=== PATIENT | male | born 1955 | race Caucasian/White ===

== ENCOUNTER 2018-03-01 10:56 | Day surgery (SDC) | payer MEDICARE, OTHER ==
[~2018-03-01 10:56] MED LIST: ACET500 PO; ALBIPROI INH; ALBU.083IS IH; ALBU90OI; ALBU90OI INH; ALBU90OI61 INH; AMLO5 PO; ASPI81CH PO; Accuneb1.25 MG/3 INH; BUDE6HFA INH; CHLO25 PO; CIPR500 PO; CLIN300 PO; DOXY100 PO; FLUSAL1005; HYDACE5 PO; HYDR1TAB94 PO; Hydrocodone-Ap1 EA23 PO; IBUP600; LEVFLO500 PO; LEVO750 PO; Lopressor 25 mg25 MG PO; METO25ER PO; METO50ER PO; Mucinex600 MG PO; Multivitamin1 EAC2 PO; NICO21TP TOP; Norco 5-325 Ta1 EACH; OMEP40CA12; OMEP40CA12 PO; PRED10 PO; PRED20 PO; Prednisone20 MG PO; SACC250C PO; Symbicort 16010.2 GM IH; Symbicort 16010.2 GM INH; THIA100 PO; Zithromax250 MG PO; Zofran4 MG PO; metoprolol succinate PO
== END 2018-03-01 23:01 | disposition home or self-care (01) ==
LOC: WOUND 10:56
DX: L89.323 Pressure ulcer of left buttock, stage 3 (principal); Q05.9 Spina bifida, unspecified
CPT/HCPCS: G0463

== ENCOUNTER 2018-03-04 00:15 | Day surgery (SDC) | payer MEDICARE, OTHER | END 2018-03-04 22:39 | disposition home or self-care (01) | LOC: WOUND 00:15 | DX: L89.323 Pressure ulcer of left buttock, stage 3 (principal); Q05.9 Spina bifida, unspecified; L84 Corns and callosities | CPT/HCPCS: G0463 ==

== ENCOUNTER 2018-03-07 01:43 | Emergency (ER) | payer MEDICARE, OTHER ==
[~2018-03-07] VITALS: Ht 170.2 cm; Wt 65.8 kg
[2018-03-07] MEDS ORDERED: DOCU100 PO (01:51)
[2018-03-07] MEDS ORDERED: BUDE6HFA INH (01:55)
[2018-03-07] MEDS ORDERED: CEPH250A PO (01:56)
[2018-03-07] MEDS ORDERED: IBUP600 PO (03:32)
[2018-03-07] MEDS ORDERED: CYCL10 PO (03:32)
== END 2018-03-07 04:12 | disposition home or self-care (01) ==
LOC: ER 01:43
DX: M54.41 Lumbago with sciatica, right side (principal); J44.9 Chronic obstructive pulmonary disease, unspecified; I10 Essential (primary) hypertension; Z91.018 Allergy to other foods; Z88.5 Allergy status to narcotic agent; Z79.899 Other long term (current) drug therapy; Z79.51 Long term (current) use of inhaled steroids; Z87.891 Personal history of nicotine dependence
CPT/HCPCS: 96372; 99284-25; J1100; J1885

== ENCOUNTER 2018-04-19 17:47 | Emergency (ER) | payer MEDICARE, OTHER ==
[~2018-04-19] VITALS: Ht 172.7 cm; Wt 64.9 kg
[~2018-04-19 17:47] MED LIST changes: +CEPH250A PO; +CYCL10 PO; +DOCU100 PO; +IBUP600 PO
[2018-04-19 18:43] LABS: BASOPHILS ABSOLUTE AUTO 0.03 K/mm3 (0.00-0.23); BASOPHILS PERCENT AUTO 0 % (0-2); EOSINOPHILS PERCENT AUTO 1 % (0-6); Hematocrit 48.3 % (37.0-53.0); Hemoglobin 15.3 g/dL (13.5-17.5); IMMATURE GRAN ABSOLUTE AUTO 0.08 K/mm3 (0.00-0.10); IMMATURE GRAN PERCENT AUTO 1 % (0-1); LYMPHOCYTES ABSOLUTE AUTO 2.57 K/mm3 (0.84-5.20); LYMPHOCYTES PERCENT AUTO 16 % (21-46); MONOCYTES ABSOLUTE AUTO 1.25 K/mm3 (0.16-1.47); MONOCYTES PERCENT AUTO 8 % (4-13); Mean Corpuscular HGB 28.8 pg (26.0-34.0); Mean Corpuscular HGB Conc 31.7 g/dL (31.5-36.5); Mean Corpuscular Volume 91 fL (80-100); Mean Platelet Volume 10.9 fL (9.1-12.4); NEUTROPHILS ABSOLUTE AUTO 12.02 K/mm3 (1.96-9.15); NEUTROPHILS PERCENT AUTO 75 % (41-73); Platelet Count 322 K/mm3 (150-400); RDW Coefficient Variation 15.2 % (11.7-14.2); RDW Standard Deviation 50.9 fL (35.1-46.3); Red Blood Cell Count 5.31 M/mm3 (4.30-5.90); White Blood Cell Count 16.05 K/mm3 (4.00-11.30)
[2018-04-19 18:59] LABS: Alanine Aminotransfer (ALT/SGP 33 U/L (12-78); Albumin, Blood 3.8 g/dL (3.4-5.0); Alk Phos 149 U/L (50-136); Anion Gap 10 mmol/L (6-16); Aspartate Aminotrans (AST/SGOT 26 U/L (12-37); Bilirubin, Total 0.2 mg/dL (0.1-1.0); Blood Urea Nitrogen 22 mg/dL (8-24); Bun/Creatinine Ratio 28.6 (12.0-20.0); CO2, Blood 24 mmol/L (21-32); Calcium, Blood 9.2 mg/dL (8.5-10.1); Chloride, Blood 103 mmol/L (98-108); Creatinine, Blood 0.77 mg/dL (0.60-1.20); Globulin, Blood 3.9 g/dL (2.2-4.0); Glomerular Filtration Rate >60 (60-); Glucose, Blood 98 mg/dL (70-99); Potassium, Blood 3.8 mmol/L (3.5-5.5); Salicylate 2.4 mg/dL (2.8-20.0); Sodium, Blood 137 mmol/L (136-145); Total Protein, Blood 7.7 g/dL (6.4-8.2)
[2018-04-19 19:00] LABS: Acetaminophen, Random <2.0 ug/mL (10.0-30.0)
== END 2018-04-19 20:20 | disposition left against medical advice (07) ==
LOC: ER 17:47
PROVIDERS: Physician Assistant
DX: Z53.21 Procedure and treatment not carried out due to patient leaving prior to being seen by health care provider (principal)
CPT/HCPCS: 80053; 85025; 93005; 93010; G0480

== ENCOUNTER 2018-04-22 00:21 | Day surgery (SDC) | payer MEDICARE, OTHER | END 2018-04-22 22:44 | disposition home or self-care (01) | LOC: WOUND 00:21 | DX: L89.323 Pressure ulcer of left buttock, stage 3 (principal); Q05.9 Spina bifida, unspecified | CPT/HCPCS: G0463 ==

== ENCOUNTER 2018-04-29 15:15 | Day surgery (SDC) | payer OTHER | END 2018-04-29 23:06 | disposition home or self-care (01) | LOC: WOUND 15:15 | DX: L89.324 Pressure ulcer of left buttock, stage 4 (principal); Q05.9 Spina bifida, unspecified | CPT/HCPCS: G0463 ==

== ENCOUNTER 2018-05-06 13:15 | Emergency (ER) | payer OTHER ==
[~2018-05-06] VITALS: Ht 172.7 cm; Wt 63.5 kg
[2018-05-06 14:59] LABS: BASOPHILS ABSOLUTE AUTO 0.04 K/mm3 (0.00-0.23); BASOPHILS PERCENT AUTO 1 % (0-2); EOSINOPHILS ABSOLUTE AUTO 0.04 K/mm3 (0.00-0.68); EOSINOPHILS PERCENT AUTO 1 % (0-6); Hematocrit 44.9 % (37.0-53.0); Hemoglobin 13.9 g/dL (13.5-17.5); IMMATURE GRAN ABSOLUTE AUTO 0.03 K/mm3 (0.00-0.10); IMMATURE GRAN PERCENT AUTO 0 % (0-1); LYMPHOCYTES ABSOLUTE AUTO 1.58 K/mm3 (0.84-5.20); LYMPHOCYTES PERCENT AUTO 19 % (21-46); MONOCYTES ABSOLUTE AUTO 0.76 K/mm3 (0.16-1.47); MONOCYTES PERCENT AUTO 9 % (4-13); Mean Corpuscular HGB 28.6 pg (26.0-34.0); Mean Corpuscular Volume 92 fL (80-100); Mean Platelet Volume 10.8 fL (9.1-12.4); NEUTROPHILS ABSOLUTE AUTO 6.01 K/mm3 (1.96-9.15); NEUTROPHILS PERCENT AUTO 71 % (41-73); Platelet Count 280 K/mm3 (150-400); RDW Coefficient Variation 15.6 % (11.7-14.2); RDW Standard Deviation 53.6 fL (35.1-46.3); Red Blood Cell Count 4.86 M/mm3 (4.30-5.90); White Blood Cell Count 8.46 K/mm3 (4.00-11.30)
[2018-05-06 15:19] LABS: Alanine Aminotransfer (ALT/SGP 23 U/L (12-78); Albumin, Blood 3.1 g/dL (3.4-5.0); Albumin/Globulin Ratio 0.8 (0.8-1.8); Alk Phos 122 U/L (50-136); Anion Gap 9 mmol/L (6-16); Aspartate Aminotrans (AST/SGOT 20 U/L (12-37); Bilirubin, Total 0.4 mg/dL (0.1-1.0); Blood Urea Nitrogen 10 mg/dL (8-24); Bun/Creatinine Ratio 16.9 (12.0-20.0); CO2, Blood 22 mmol/L (21-32); Calcium, Blood 8.5 mg/dL (8.5-10.1); Chloride, Blood 108 mmol/L (98-108); Creatinine, Blood 0.59 mg/dL (0.60-1.20); Globulin, Blood 3.9 g/dL (2.2-4.0); Glomerular Filtration Rate >60 (60-); Glucose, Blood 118 mg/dL (70-99); Potassium, Blood 3.9 mmol/L (3.5-5.5); Sodium, Blood 139 mmol/L (136-145)
[2018-05-06 15:25] LABS: Source, Urine Clean Catch
[2018-05-06 15:34] LABS: Appearance, Urine Hazy (Clear); Bilirubin, Urine Neg (Neg); Blood, Urine Neg (Neg); Color, Urine Yellow (P-Yellow); Glucose Qualitative, Urine Neg (Neg); Ketones, Urine Neg (Neg); Leukocyte Esterase, Urine 1+ (Neg); Nitrite, Urine Neg (Neg); Protein, Urine Neg (Neg); Urobilinogen, Urine NORM (Normal); pH, Urine 6.5 (5.0-8.0)
[2018-05-06 15:46] LABS: Bacteria Many /hpf; Red Blood Cells, Urine Not Seen /hpf (0-2); Squamous Epithelial Cells Few /hpf (Few)
[2018-05-06] MEDS ORDERED: DOXY100T53 PO (15:54)
[2018-05-06] MEDS ORDERED: Ultram50 MG PO (15:54)
== END 2018-05-06 16:14 | disposition home or self-care (01) ==
LOC: ER 13:15
PROVIDERS: Physician Assistant
DX: N34.2 Other urethritis (principal); J44.9 Chronic obstructive pulmonary disease, unspecified; F17.200 Nicotine dependence, unspecified, uncomplicated
CPT/HCPCS: 36415; 76770; 80053; 81001; 85025; 87077; 87086; 87186; 96372; 99284-25; J0696

== ENCOUNTER 2018-05-10 10:30 | Day surgery (SDC) | payer OTHER ==
[~2018-05-10 10:30] MED LIST changes: +DOXY100T53 PO; +Ultram50 MG PO
== END 2018-05-10 22:37 | disposition home or self-care (01) ==
LOC: WOUND 10:30
DX: L89.323 Pressure ulcer of left buttock, stage 3 (principal); Q05.9 Spina bifida, unspecified; Z72.0 Tobacco use
CPT/HCPCS: G0463

== ENCOUNTER 2018-05-17 10:35 | Day surgery (SDC) | payer OTHER | END 2018-05-17 22:52 | disposition home or self-care (01) | LOC: WOUND 10:35 | DX: L89.324 Pressure ulcer of left buttock, stage 4 (principal); Q05.9 Spina bifida, unspecified; Z72.0 Tobacco use | CPT/HCPCS: G0463 ==

== ENCOUNTER 2018-06-10 12:20 | Day surgery (SDC) | payer MEDICARE, OTHER | END 2018-06-10 22:40 | disposition home or self-care (01) | LOC: WOUND 12:20 | DX: L89.323 Pressure ulcer of left buttock, stage 3 (principal); Q05.9 Spina bifida, unspecified; F17.210 Nicotine dependence, cigarettes, uncomplicated; L03.317 Cellulitis of buttock; B95.62 Methicillin resistant Staphylococcus aureus infection as the cause of diseases classified elsewhere ==

== ENCOUNTER 2018-06-17 00:30 | Day surgery (SDC) | payer MEDICARE, OTHER | END 2018-06-17 22:43 | disposition home or self-care (01) | LOC: WOUND 00:30 | DX: L89.324 Pressure ulcer of left buttock, stage 4 (principal); Q05.9 Spina bifida, unspecified; Z72.0 Tobacco use ==

== ENCOUNTER 2018-06-24 00:15 | Day surgery (SDC) | payer MEDICARE, OTHER ==
[2018-06-24] MEDS ORDERED: PRED10 PO (17:23)
== END 2018-06-24 22:35 | disposition home or self-care (01) ==
LOC: WOUND 00:15
DX: L89.323 Pressure ulcer of left buttock, stage 3 (principal); Q05.9 Spina bifida, unspecified; Z72.0 Tobacco use
CPT/HCPCS: G0463

== ENCOUNTER 2018-06-24 12:45 | Emergency (ER) | payer MEDICARE, OTHER ==
[~2018-06-24] VITALS: Ht 170.2 cm; Wt 63.5 kg
[2018-06-24 13:45] LABS: BASOPHILS ABSOLUTE AUTO 0.05 K/mm3 (0.00-0.23); BASOPHILS PERCENT AUTO 0 % (0-2); EOSINOPHILS ABSOLUTE AUTO 0.01 K/mm3 (0.00-0.68); EOSINOPHILS PERCENT AUTO 0 % (0-6); Hematocrit 50.2 % (37.0-53.0); Hemoglobin 16.5 g/dL (13.5-17.5); IMMATURE GRAN ABSOLUTE AUTO 0.04 K/mm3 (0.00-0.10); IMMATURE GRAN PERCENT AUTO 0 % (0-1); LYMPHOCYTES ABSOLUTE AUTO 2.03 K/mm3 (0.84-5.20); LYMPHOCYTES PERCENT AUTO 16 % (21-46); MONOCYTES ABSOLUTE AUTO 1.19 K/mm3 (0.16-1.47); MONOCYTES PERCENT AUTO 10 % (4-13); Mean Corpuscular HGB 28.6 pg (26.0-34.0); Mean Corpuscular HGB Conc 32.9 g/dL (31.5-36.5); Mean Corpuscular Volume 87 fL (80-100); Mean Platelet Volume 10.6 fL (9.1-12.4); NEUTROPHILS ABSOLUTE AUTO 9.06 K/mm3 (1.96-9.15); NEUTROPHILS PERCENT AUTO 73 % (41-73); Platelet Count 257 K/mm3 (150-400); RDW Coefficient Variation 15.1 % (11.7-14.2); Red Blood Cell Count 5.76 M/mm3 (4.30-5.90); White Blood Cell Count 12.38 K/mm3 (4.00-11.30)
[2018-06-24 14:05] LABS: Alanine Aminotransfer (ALT/SGP 71 U/L (12-78); Albumin, Blood 3.8 g/dL (3.4-5.0); Alk Phos 165 U/L (50-136); Anion Gap 13 mmol/L (6-16); Aspartate Aminotrans (AST/SGOT 68 U/L (12-37); Bilirubin, Total 0.7 mg/dL (0.1-1.0); Blood Urea Nitrogen 8 mg/dL (8-24); Bun/Creatinine Ratio 13.9 (12.0-20.0); CO2, Blood 22 mmol/L (21-32); Calcium, Blood 8.7 mg/dL (8.5-10.1); Chloride, Blood 104 mmol/L (98-108); Creatinine, Blood 0.57 mg/dL (0.60-1.20); Globulin, Blood 3.9 g/dL (2.2-4.0); Glomerular Filtration Rate >60 (60-); Glucose, Blood 95 mg/dL (70-99); Potassium, Blood 4.1 mmol/L (3.5-5.5); Sodium, Blood 139 mmol/L (136-145); Total Protein, Blood 7.7 g/dL (6.4-8.2); Troponin I <0.015 ng/mL (0.000-0.040)
[2018-06-24] MEDS ORDERED: PRED10 PO (17:23)
== END 2018-06-24 18:04 | disposition home or self-care (01) ==
LOC: ER 12:45
PROVIDERS: Emergency Medicine
DX: J44.1 Chronic obstructive pulmonary disease with (acute) exacerbation (principal); F17.210 Nicotine dependence, cigarettes, uncomplicated
CPT/HCPCS: 36415; 71046; 80053; 83880; 84484; 85025; 93005; 93010; 94640; 96374; 99285-25; J2930

== ENCOUNTER 2018-07-22 00:29 | Day surgery (SDC) | payer MEDICARE, OTHER | END 2018-07-22 12:00 | disposition home or self-care (01) | LOC: WOUND 00:29 | DX: L89.323 Pressure ulcer of left buttock, stage 3 (principal); Q05.9 Spina bifida, unspecified; J44.9 Chronic obstructive pulmonary disease, unspecified ==

== ENCOUNTER 2018-08-08 14:52 | Inpatient (IN) | payer MEDICARE, OTHER ==
[~2018-08-08] VITALS: Ht 172.7 cm; Wt 59.8 kg
[2018-08-08 15:28] LABS: BASOPHILS ABSOLUTE AUTO 0.04 K/mm3 (0.00-0.23); BASOPHILS PERCENT AUTO 0 % (0-2); EOSINOPHILS ABSOLUTE AUTO 0.02 K/mm3 (0.00-0.68); EOSINOPHILS PERCENT AUTO 0 % (0-6); Hematocrit 45.6 % (37.0-53.0); Hemoglobin 15.3 g/dL (13.5-17.5); IMMATURE GRAN ABSOLUTE AUTO 0.04 K/mm3 (0.00-0.10); IMMATURE GRAN PERCENT AUTO 0 % (0-1); LYMPHOCYTES ABSOLUTE AUTO 3.84 K/mm3 (0.84-5.20); LYMPHOCYTES PERCENT AUTO 26 % (21-46); MONOCYTES PERCENT AUTO 12 % (4-13); Mean Corpuscular HGB 28.9 pg (26.0-34.0); Mean Corpuscular HGB Conc 33.6 g/dL (31.5-36.5); Mean Corpuscular Volume 86 fL (80-100); Mean Platelet Volume 10.5 fL (9.1-12.4); NEUTROPHILS PERCENT AUTO 62 % (41-73); Platelet Count 264 K/mm3 (150-400); RDW Coefficient Variation 16.7 % (11.7-14.2); RDW Standard Deviation 51.8 fL (35.1-46.3); Red Blood Cell Count 5.29 M/mm3 (4.30-5.90); White Blood Cell Count 14.64 K/mm3 (4.00-11.30)
[2018-08-08 15:41] LABS: Base Excess Venous 2.3 mmol/L; Bicarbonate Venous 27.2 mmol/L (24.0-30.0); PO2 Venous 87.2 mmHg (38-42); pH Blood Venous 7.52 (7.34-7.37)
[2018-08-08 15:43] LABS: Influenza A Negative (NEGATIVE); Influenza B Negative (NEGATIVE)
[2018-08-08 15:54] LABS: Alanine Aminotransfer (ALT/SGP 72 U/L (12-78); Albumin, Blood 3.2 g/dL (3.4-5.0); Alk Phos 126 U/L (50-136); Anion Gap 16 mmol/L (6-16); Aspartate Aminotrans (AST/SGOT 58 U/L (12-37); Bilirubin, Total 0.6 mg/dL (0.1-1.0); Blood Urea Nitrogen 11 mg/dL (8-24); Bun/Creatinine Ratio 19.7 (12.0-20.0); CO2, Blood 24 mmol/L (21-32); Chloride, Blood 95 mmol/L (98-108); Creatinine, Blood 0.56 mg/dL (0.60-1.20); Globulin, Blood 3.2 g/dL (2.2-4.0); Glomerular Filtration Rate >60 (60-); Glucose, Blood 79 mg/dL (70-99); Potassium, Blood 3.8 mmol/L (3.5-5.5); Sodium, Blood 135 mmol/L (136-145); Total Protein, Blood 6.4 g/dL (6.4-8.2); Troponin I 0.033 ng/mL (0.000-0.040)
[2018-08-08 17:21] LABS: PCO2 Arterial 30.7 mmHg (35-45); PO2 Arterial 117 mmHg (80-100); pH Blood Arterial 7.39 (7.35-7.45)
--- NOTE | 2018-08-08 19:34 | NUR ---
RECEIVED REPORT FROM ED RN, PT ARRIVED ON UNIT AT 1835 THIS NURSE ASSUMED CARE OF PATIENT. ASSISTED PATIENT IN GETTING SETTLED AND ORIENTED TO THE ROOM AND CALL SYSTEM. WILL GET MEDS ADMINISTERED AND GIVE REPORT TO NOC RN.
[2018-08-09 00:09] LABS: Creatine Kinase MB 6.4 ng/mL (0.0-3.6); Creatine Kinase MB Index 4.3 (0.0-4.0); Troponin I 0.027 ng/mL (0.000-0.040)
--- NOTE | 2018-08-09 07:27 | NUR ---
SHIFT SUMMARY PATIENT PLEASENT AND COOPERATIVE THROUGHOUT THE NIGHT. PATIENT DID REPORT THAT HE FELT DIZZY WHEN STANDING OR SITTING UP. AT ONE POINT PATIENT REPORTED HE WAS STARTING TO GET DIZZY AND SOB. BIPAP PLACED ON PATIENT AND PATIENT MEDICATED FOR ANXIETY PER EMAR. PATIENT RELAXED AFTER BEING PLACED ON BIPAP AND WAS ABLE TO FALL ASLEEP FOR SEVERAL HOURS. WHEN PATIENT AWOKE HE STATED HE WAS FEELING BETTER. PATIENT ON SEVERAL LITERS OF O2 WHEN OFF BIAP. PATIENT HAS BEEN OFF BIPAP SINCE APPROX 0200 AND HAS APPEARED TO TOLERATE IT WELL THIS AM. PATIENT CURRENTLY APPEARS TO BE ASLEEP. REPORT GIVEN TO ONCOMING RN.
[2018-08-09 08:31] LABS: Alanine Aminotransfer (ALT/SGP 56 U/L (12-78); Albumin, Blood 2.7 g/dL (3.4-5.0); Albumin/Globulin Ratio 0.9 (0.8-1.8); Alk Phos 103 U/L (50-136); Anion Gap 9 mmol/L (6-16); Aspartate Aminotrans (AST/SGOT 40 U/L (12-37); Bilirubin, Total 0.6 mg/dL (0.1-1.0); Blood Urea Nitrogen 15 mg/dL (8-24); Bun/Creatinine Ratio 28.6 (12.0-20.0); CO2, Blood 27 mmol/L (21-32); Calcium, Blood 7.9 mg/dL (8.5-10.1); Chloride, Blood 103 mmol/L (98-108); Creatinine, Blood 0.53 mg/dL (0.60-1.20); Globulin, Blood 2.9 g/dL (2.2-4.0); Glomerular Filtration Rate >60 (60-); Glucose, Blood 159 mg/dL (70-99); Potassium, Blood 3.9 mmol/L (3.5-5.5); Sodium, Blood 139 mmol/L (136-145); Total Protein, Blood 5.6 g/dL (6.4-8.2)
--- NOTE | 2018-08-09 09:12 | NUR ---
RECEIVED REPORT AND ASSUMED CARE OF PATIENT. HE WAS SLEEPING ON ARRIVAL DURING REPORT, WHEN HE AWOKE HE IS HAVING INCREASED ALCOHOL WITHDRAWAL SYMPTOMS. AT 0745 PT CIWA WAS 7, AT THIS TIME 0910 PT IS EXPERIENCING INCREASED TREMORS AND SWEATING. WILL CONTINUE TO MONITOR AND CONTACT DR WITH NEW DEVELOPMENT. O2 3 LPM, O2 SAT 94%, HR 107 BED IN LOW POSITION, CALL LIGHT WITHIN EASY REACH.
[2018-08-09 10:53] LABS: BASOPHILS PERCENT AUTO 0 % (0-2); EOSINOPHILS PERCENT AUTO 0 % (0-6); Hematocrit 37.2 % (37.0-53.0); Hemoglobin 12.3 g/dL (13.5-17.5); IMMATURE GRAN ABSOLUTE AUTO 0.06 K/mm3 (0.00-0.10); IMMATURE GRAN PERCENT AUTO 1 % (0-1); LYMPHOCYTES ABSOLUTE AUTO 0.17 K/mm3 (0.84-5.20); LYMPHOCYTES PERCENT AUTO 2 % (21-46); MONOCYTES ABSOLUTE AUTO 0.52 K/mm3 (0.16-1.47); MONOCYTES PERCENT AUTO 5 % (4-13); Mean Corpuscular HGB 28.5 pg (26.0-34.0); Mean Corpuscular HGB Conc 33.1 g/dL (31.5-36.5); Mean Corpuscular Volume 86 fL (80-100); Mean Platelet Volume 10.8 fL (9.1-12.4); NEUTROPHILS ABSOLUTE AUTO 10.79 K/mm3 (1.96-9.15); NEUTROPHILS PERCENT AUTO 94 % (41-73); Platelet Count 174 K/mm3 (150-400); RDW Coefficient Variation 16.1 % (11.7-14.2); RDW Standard Deviation 50.8 fL (35.1-46.3); Red Blood Cell Count 4.32 M/mm3 (4.30-5.90); White Blood Cell Count 11.54 K/mm3 (4.00-11.30)
[2018-08-09 16:52] LABS: Source, Urine Urostomy Bag
[2018-08-09 17:05] LABS: Appearance, Urine Hazy (Clear); Bilirubin, Urine Neg (Neg); Blood, Urine 1+ (Neg); Color, Urine Yellow (P-Yellow); Glucose Qualitative, Urine 3+ (Neg); Ketones, Urine Neg (Neg); Leukocyte Esterase, Urine 1+ (Neg); Nitrite, Urine Pos (Neg); Protein, Urine Neg (Neg); Specific Gravity, Urine 1.015 (1.003-1.022); Urobilinogen, Urine NORM (Normal)
[2018-08-09 17:34] LABS: PCO2 Arterial 38.5 mmHg (35-45); pH Blood Arterial 7.49 (7.35-7.45)
--- NOTE | 2018-08-09 18:12 | NUR ---
PT HAD A GOOD DAY, HE RESTED THROUGHOUT THE SHIFT OFF AND ON. PT CONTINUES ON 3 LPM VIA NC O2 SAT >92%. PT REPORTS SOME DIZZINESS WHEN HE SITS UP, LIMITING TO BEDREST AT THIS TIME. CIWA SCORES BETWEEN 8-12 DURING THIS SHIFT. WILL GIVE REPORT TO ONCOMING RN AND CONTINUE TO MONITOR CLOSELY.
[2018-08-09 18:57] LABS: Bacteria Many /hpf; Red Blood Cells, Urine 0-2 /hpf (0-2); Squamous Epithelial Cells Not Seen /hpf (Few)
--- NOTE | 2018-08-10 06:36 | NUR ---
PCU NOC SHIFT SUMMARY PATIENT ALERT AND ORIENTED TO SELF, LOCATION AND SITUATION - CONFUSED TO DATE, REORIENTED EASILY. CIWA REMAINED 8-12 T/O SHIFT WITH PATIENT VERY DIRECTABLE AND COOPERATIVE WITH CARE. TREMORS NOTED AND SWEATING. VSS ON 2 LPM NC. PATIENT NSR WITH NO EVENTS NOTED. PATIENTS UROSTOMY DRAINING WELL - CLOUDY YELLOW ORDIFEROUS URINE. PATIENT HAS CHRONIC PAIN IN BACK. NO ACUTE EVENTS OVER NIGHT. WILL CONTINUE TO MONITOR AND REPORT TO DAYSHIFT RN.
--- NOTE | 2018-08-10 08:15 | NUR ---
AM assessment: Pt resting in bed. States that he is having 7/10 pain in his "chest" that is "from coughing". Will medicate per orders. VSS. LS with exp wheezing. BT positive. Pulses palp. CIWA a 7 at this time. Will medicate per orders for withdrawl. Urostomy draining clowdy, yellow urine with sediment. Foul smell. pt very concered about UTI. Assured Pt that he would has been recieving antibiotics and that he would get some more tonight. Denies other needs. Call light in reach.
--- NOTE | 2018-08-10 18:21 | NUR ---
SHift Summary: Pt resting in bed at this time. States that he is doing ok. VSS throughout shift. CIWA has remained 4-7 throughout shift. Pt was treated per orders. Pt has had back pain and chest pain that was treated and subsided with ultram and tylenal. Otherwise pt has dozed on and off throughout the shift and has done well. No other changes. Will report to night RN.
--- NOTE | 2018-08-11 07:55 | NUR ---
AM ASSESSMENT: Pt resting in bed. LS diminished with some coarsness and wheezing. HR reg. BT positive. Pulses palp. Urostomy draining clear yellow urine at this time. Smell has improved and less cloudy or sediment seen. PT states that he is having lower flank pain as well as chest pain r/t coughing. Pt recieving breathing tx at this time. Will medicate for pain per orders. VSS. Call light in reach. Will monitor.
--- NOTE | 2018-08-11 18:05 | NUR ---
shift summary: Pt has done well this shift. CIWA has been <4 throughout the day and has not required any treatment. Pt has slept on and off throughout the day. This am, at around 0915, pt had some chest pain associated with caughing the increased HR. Pt was coached purse lipped breathing and tolerated well. He was given tylenol and ultram that relieved pain. All other VSS throughout shift. This noc pt ambulated in room and up to bathroom. Was able to remove oxygen and biox remained about 90-91%. Pt tolerated well. Loose cough throughout shift, but minimal sputum coughed up. NO other changes this shift. Will report to night RN.
--- NOTE | 2018-08-11 19:27 | NUR ---
PM NOTE. ASSUMED CARE OF PT APROX 1900, PT IS A&Ox4 AND SBA IN THE ROOM. PT WAS ADMITTED DUE TO ACUTE RESP FAILURE W/HYPOXIA, PT IS CURRENTL ON 2L NC WITH O2 SATS AT 93%, RR IS 18 EVEN AND UNLABORED, PT DOES NOT APPEARE TO BE IN DISTRESS. TELE INTACT, ST AT 103 PER PUBLIC RELATIONS REPRESENTATIVE, PT'S BP 141/76, NO EDEMA NOTED ON ASSESMENT. PT'S L/S COARSE EXP WHEEZES T/O AND DIM IN THE BASES. BT PRESENT AND HYPOACTIVE, ABD IS SOFT AND NONTENDER TO PALP. UROSTOMY SITE IS C/D/I DRAINING YELLOW URINE, URINE HAS SLIGHT FOUL SMELL, THIS HAS IMPROVED FROM PREVIOUS DAY PER PT. CALL LIGHT IN REACH, BED IS LOCKED AND LOW WILL CONTIUE TO MONITOR.
--- NOTE | 2018-08-12 06:03 | NUR ---
SHIFT SUMMARY. NO ACUTE CHANGES NOTED THIS SHIFT, PT'S VS HAVE BEEN STABLE. PT DENIES ANY CHEST PAIN/PRESSURE, N/V OR SOB. PT REQUESTED THAT HE BE PUT ON HIS HOME INHALER SYMBICORT, RT WAS NOTIFIED AND PROVIDER CALLED, PT'S RESPIRATORY MEDICATONS CHANGED PER PROIVDER'S ORDERS. PT IS STILL ON 2L NC WITH O2 SATS >90%. CALL LIGHT IN REACH, BED IS LOCKED AND LOW WILL CONTINUE TO MONITOR UNTIL REPORT IS GIVEN TO ONCOMING RN.
--- NOTE | 2018-08-12 08:16 | NUR ---
Assumed Care: Assumed care of pt at approx 0700. VSS. In no apparent sign of distress. Pt is A&Ox4. CIWA score of 0. Calls appropriately. Repositions self. Pt currently sitting up at bedside and eating breakfast. Responding to questions appropriately. Denies any pain at this time. States that his breathing is feeling better all the time and that he would like to get up and shower today. Pt could likely status change today. See shift assessment for detailed assessment. Denies any further questions, complaints or requests at this time. Will continue to monitor.
[2018-08-12] MEDS ORDERED: TRAM50 PO (12:22)
[2018-08-12] MEDS ORDERED: PRED20 PO (12:24)
--- NOTE | 2018-08-12 12:58 | NUR ---
Discharge: Pt discharge complete. Pt educated on new medications and discharge instructions. Pt denies any questions at time of discharge. Dr. Fontana aware of pt running SIT on tele prior to removal in [id number] and no new orders received for discharge. Pt up and OOB in room. Dressing self for discharge independently. Home O2 eval complete and pt does not qualify for home O2. Written prescription for tramadol provided to pt. All other prescriptions called in to [facility] pharmacy on [facility] in [place]. Pt currently in room waiting for brother to come and pick him up. Will continue to monitor until pt leaves hospital campus.
--- NOTE | 2018-08-12 16:22 | NUR ---
UPDATE: PT DISCHARGED OFFICIALLY AT 1313
== END 2018-08-12 13:17 | disposition home or self-care (01) | DRG 189 ==
LOC: ER 14:52 → PCU 16:51
PROVIDERS: Emergency Medicine; Hospitalist; Physician Assistant; ADMIT Internal Medicine
PROC: 5A09457 Assistance with Respiratory Ventilation, 24-96 Consecutive Hours, Continuous Positive Airway Pressure (ICD-10-PCS; principal; 2018-08-08)
DX: J96.01 Acute respiratory failure with hypoxia (principal); F10.231 Alcohol dependence with withdrawal delirium; J44.1 Chronic obstructive pulmonary disease with (acute) exacerbation; E87.2 Acidosis; R65.10 Systemic inflammatory response syndrome (SIRS) of non-infectious origin without acute organ dysfunction; J44.0 Chronic obstructive pulmonary disease with (acute) lower respiratory infection; Z51.5 Encounter for palliative care; F17.210 Nicotine dependence, cigarettes, uncomplicated; D64.9 Anemia, unspecified; Z59.0 Homelessness; E86.0 Dehydration; K21.9 Gastro-esophageal reflux disease without esophagitis; I10 Essential (primary) hypertension; Q05.9 Spina bifida, unspecified; J20.9 Acute bronchitis, unspecified; Z93.6 Other artificial openings of urinary tract status
CPT/HCPCS: 36415; 36600; 71045; 80053; 81001; 82550; 82553; 82803; 83605; 84484; 85025; 87040; 87070; 87086; 87205; 87804; 90732; 93005; 93010; 94640; 94660; 94761; 94762; 96361; 96374; 96375; 98960; 99285-25; C9113; J1650; J2060; J2405; J2930; J3010; J3411; J7030; J7120; J7512

== ENCOUNTER → 2018-10-21 | Outpatient (CLI) | payer MEDICARE, OTHER ==
[~2018-10-21] MED LIST changes: +TRAM50 PO
== END | disposition home or self-care (01) ==
LOC: LAB SHORT 17:00 → LAB UCHC 17:00
DX: N39.0 Urinary tract infection, site not specified (principal); T83.098S Other mechanical complication of other urinary catheter, sequela
CPT/HCPCS: 87077; 87086; 87186

== ENCOUNTER 2019-02-08 16:29 | Emergency (ER) | payer MEDICARE, OTHER ==
[~2019-02-08] VITALS: Ht 170.2 cm; Wt 56.7 kg
[2019-02-08 18:10] LABS: BASOPHILS ABSOLUTE AUTO 0.02 K/mm3 (0.00-0.23); BASOPHILS PERCENT AUTO 0 % (0-2); EOSINOPHILS ABSOLUTE AUTO 0.07 K/mm3 (0.00-0.68); EOSINOPHILS PERCENT AUTO 1 % (0-6); Hematocrit 48.1 % (37.0-53.0); Hemoglobin 15.2 g/dL (13.5-17.5); IMMATURE GRAN ABSOLUTE AUTO 0.02 K/mm3 (0.00-0.10); IMMATURE GRAN PERCENT AUTO 0 % (0-1); LYMPHOCYTES ABSOLUTE AUTO 1.38 K/mm3 (0.84-5.20); LYMPHOCYTES PERCENT AUTO 18 % (21-46); MONOCYTES ABSOLUTE AUTO 0.59 K/mm3 (0.16-1.47); MONOCYTES PERCENT AUTO 8 % (4-13); Mean Corpuscular HGB 29.1 pg (26.0-34.0); Mean Corpuscular HGB Conc 31.6 g/dL (31.5-36.5); Mean Corpuscular Volume 92 fL (80-100); Mean Platelet Volume 11.1 fL (9.1-12.4); NEUTROPHILS ABSOLUTE AUTO 5.79 K/mm3 (1.96-9.15); NEUTROPHILS PERCENT AUTO 74 % (41-73); Platelet Count 228 K/mm3 (150-400); RDW Coefficient Variation 15.1 % (11.7-14.2); Red Blood Cell Count 5.22 M/mm3 (4.30-5.90); White Blood Cell Count 7.87 K/mm3 (4.00-11.30)
[2019-02-08 18:47] LABS: Alanine Aminotransfer (ALT/SGP 21 U/L (12-78); Albumin, Blood 3.2 g/dL (3.4-5.0); Albumin/Globulin Ratio 0.9 (0.8-1.8); Alk Phos 139 U/L (50-136); Anion Gap 7 mmol/L (6-16); Aspartate Aminotrans (AST/SGOT 19 U/L (12-37); Bilirubin, Total 0.3 mg/dL (0.1-1.0); Blood Urea Nitrogen 13 mg/dL (8-24); Bun/Creatinine Ratio 19.3 (12.0-20.0); CO2, Blood 24 mmol/L (21-32); Calcium, Blood 8.6 mg/dL (8.5-10.1); Chloride, Blood 108 mmol/L (98-108); Creatinine, Blood 0.67 mg/dL (0.60-1.20); Globulin, Blood 3.4 g/dL (2.2-4.0); Glomerular Filtration Rate >60 (60-); Glucose, Blood 124 mg/dL (70-99); Potassium, Blood 4.1 mmol/L (3.5-5.5); Sodium, Blood 139 mmol/L (136-145); Total Protein, Blood 6.6 g/dL (6.4-8.2)
== END 2019-02-08 20:25 | disposition left against medical advice (07) ==
LOC: ER 16:29
PROVIDERS: Physician Assistant
DX: R42 Dizziness and giddiness (principal); Z86.018 Personal history of other benign neoplasm
CPT/HCPCS: 36415; 80053; 84484; 85025; 93005; 93010; 99283-25

== ENCOUNTER 2019-05-21 22:25 | Emergency (ER) | payer MEDICARE, OTHER ==
[~2019-05-21] VITALS: Ht 170.2 cm; Wt 56.7 kg
[~2019-05-21 22:25] MED LIST changes: -OMEP40CA12; +OMEPRAZOLE20 MG PO
[2019-05-21 23:24] LABS: BASOPHILS ABSOLUTE AUTO 0.02 K/mm3 (0.00-0.23); BASOPHILS PERCENT AUTO 0 % (0-2); EOSINOPHILS ABSOLUTE AUTO 0.13 K/mm3 (0.00-0.68); EOSINOPHILS PERCENT AUTO 2 % (0-6); Hematocrit 44.6 % (37.0-53.0); Hemoglobin 14.2 g/dL (13.5-17.5); IMMATURE GRAN ABSOLUTE AUTO 0.02 K/mm3 (0.00-0.10); IMMATURE GRAN PERCENT AUTO 0 % (0-1); LYMPHOCYTES ABSOLUTE AUTO 2.02 K/mm3 (0.84-5.20); LYMPHOCYTES PERCENT AUTO 27 % (21-46); MONOCYTES ABSOLUTE AUTO 0.54 K/mm3 (0.16-1.47); MONOCYTES PERCENT AUTO 7 % (4-13); Mean Corpuscular HGB 29.5 pg (26.0-34.0); Mean Corpuscular HGB Conc 31.8 g/dL (31.5-36.5); Mean Corpuscular Volume 93 fL (80-100); Mean Platelet Volume 10.4 fL (9.1-12.4); NEUTROPHILS ABSOLUTE AUTO 4.76 K/mm3 (1.96-9.15); NEUTROPHILS PERCENT AUTO 64 % (41-73); Platelet Count 276 K/mm3 (150-400); RDW Coefficient Variation 13.6 % (11.7-14.2); RDW Standard Deviation 46.6 fL (35.1-46.3); Red Blood Cell Count 4.82 M/mm3 (4.30-5.90); White Blood Cell Count 7.49 K/mm3 (4.00-11.30)
[2019-05-21 23:44] LABS: Alanine Aminotransfer (ALT/SGP 21 U/L (12-78); Albumin, Blood 3.2 g/dL (3.4-5.0); Albumin/Globulin Ratio 0.8 (0.8-1.8); Alk Phos 146 U/L (50-136); Anion Gap 6 mmol/L (6-16); Aspartate Aminotrans (AST/SGOT 19 U/L (12-37); Bilirubin, Total 0.2 mg/dL (0.1-1.0); Blood Urea Nitrogen 16 mg/dL (8-24); Bun/Creatinine Ratio 21.1 (12.0-20.0); CO2, Blood 31 mmol/L (21-32); Calcium, Blood 8.5 mg/dL (8.5-10.1); Chloride, Blood 105 mmol/L (98-108); Creatinine, Blood 0.76 mg/dL (0.60-1.20); Globulin, Blood 3.9 g/dL (2.2-4.0); Glomerular Filtration Rate >60 (60-); Glucose, Blood 100 mg/dL (70-99); Potassium, Blood 4.3 mmol/L (3.5-5.5); Sodium, Blood 142 mmol/L (136-145); Total Protein, Blood 7.1 g/dL (6.4-8.2)
[2019-05-22 01:02] LABS: Source, Urine Urostomy Bag
[2019-05-22 01:05] LABS: Bilirubin, Urine Neg (Neg); Blood, Urine 1+ (Neg); Glucose Qualitative, Urine Neg (Neg); Ketones, Urine Neg (Neg); Leukocyte Esterase, Urine 3+ (Neg); Nitrite, Urine Pos (Neg); Protein, Urine 1+ (Neg); Urobilinogen, Urine NORM (Normal)
[2019-05-22 01:10] LABS: Appearance, Urine Hazy (Clear); Color, Urine Yellow (P-Yellow)
[2019-05-22 01:11] LABS: Amorphous Light (0-Heavy); Red Blood Cells, Urine 0-2 /hpf (0-2); Squamous Epithelial Cells Not Seen /hpf (Few); White Blood Cells, Urine TNTC /hpf (0-5)
[2019-05-22 01:12] LABS: Bacteria Many /hpf
[2019-05-22] MEDS ORDERED: Cipro500 MG PO (02:34)
== END 2019-05-22 03:26 | disposition home or self-care (01) ==
LOC: ER 22:25
PROVIDERS: Emergency Medicine
DX: N39.0 Urinary tract infection, site not specified (principal); I10 Essential (primary) hypertension; J44.9 Chronic obstructive pulmonary disease, unspecified; Z91.018 Allergy to other foods; Z88.5 Allergy status to narcotic agent; Z79.899 Other long term (current) drug therapy; Z87.891 Personal history of nicotine dependence
CPT/HCPCS: 36415; 74176; 80053; 81001; 83690; 85025; 87086; 96365; 96375; 99284-25; J0696; J1885

== ENCOUNTER 2019-05-30 10:28 | Inpatient (IN) | payer MEDICARE, OTHER ==
[~2019-05-30] VITALS: Ht 172.7 cm; Wt 56.7 kg
[~2019-05-30 10:28] MED LIST changes: +Cipro500 MG PO
[2019-05-30 11:45] LABS: BASOPHILS ABSOLUTE AUTO 0.05 K/mm3 (0.00-0.23); BASOPHILS PERCENT AUTO 0 % (0-2); EOSINOPHILS ABSOLUTE AUTO 0.11 K/mm3 (0.00-0.68); EOSINOPHILS PERCENT AUTO 1 % (0-6); Hematocrit 42.1 % (37.0-53.0); Hemoglobin 13.7 g/dL (13.5-17.5); IMMATURE GRAN ABSOLUTE AUTO 0.08 K/mm3 (0.00-0.10); IMMATURE GRAN PERCENT AUTO 1 % (0-1); LYMPHOCYTES ABSOLUTE AUTO 2.42 K/mm3 (0.84-5.20); LYMPHOCYTES PERCENT AUTO 14 % (21-46); MONOCYTES ABSOLUTE AUTO 1.11 K/mm3 (0.16-1.47); MONOCYTES PERCENT AUTO 7 % (4-13); Mean Corpuscular HGB Conc 32.5 g/dL (31.5-36.5); Mean Corpuscular Volume 92 fL (80-100); Mean Platelet Volume 10.9 fL (9.1-12.4); NEUTROPHILS ABSOLUTE AUTO 13.11 K/mm3 (1.96-9.15); NEUTROPHILS PERCENT AUTO 78 % (41-73); Platelet Count 298 K/mm3 (150-400); RDW Coefficient Variation 13.8 % (11.7-14.2); RDW Standard Deviation 47.3 fL (35.1-46.3); Red Blood Cell Count 4.57 M/mm3 (4.30-5.90); White Blood Cell Count 16.88 K/mm3 (4.00-11.30)
[2019-05-30 11:50] LABS: Alanine Aminotransfer (ALT/SGP 33 U/L (12-78); Albumin, Blood 3.6 g/dL (3.4-5.0); Albumin/Globulin Ratio 1.1 (0.8-1.8); Alk Phos 137 U/L (50-136); Anion Gap 9 mmol/L (6-16); Aspartate Aminotrans (AST/SGOT 29 U/L (12-37); Bilirubin, Total 0.6 mg/dL (0.1-1.0); Blood Urea Nitrogen 28 mg/dL (8-24); Bun/Creatinine Ratio 32.9 (12.0-20.0); CO2, Blood 24 mmol/L (21-32); Calcium, Blood 8.5 mg/dL (8.5-10.1); Chloride, Blood 107 mmol/L (98-108); Creatinine, Blood 0.85 mg/dL (0.60-1.20); Ethanol (Alcohol), Blood, Med <3 mg/dL; Globulin, Blood 3.3 g/dL (2.2-4.0); Glomerular Filtration Rate >60 (60-); Glucose, Blood 136 mg/dL (70-99); Potassium, Blood 3.7 mmol/L (3.5-5.5); Sodium, Blood 140 mmol/L (136-145); Total Protein, Blood 6.9 g/dL (6.4-8.2)
[2019-05-30 12:02] LABS: Source, Urine Urostomy Bag
[2019-05-30 12:12] LABS: Bilirubin, Urine Neg (Neg); Blood, Urine 3+ (Neg); Glucose Qualitative, Urine Neg (Neg); Ketones, Urine 3+ (Neg); Leukocyte Esterase, Urine Neg (Neg); Nitrite, Urine Neg (Neg); Protein, Urine 1+ (Neg); Specific Gravity, Urine 1.005 (1.003-1.022); Urobilinogen, Urine NORM (Normal)
[2019-05-30 12:23] LABS: Appearance, Urine Hazy (Clear); Color, Urine Yellow (P-Yellow)
[2019-05-30 12:25] LABS: Bacteria Rare /hpf; Squamous Epithelial Cells Few /hpf (Few); White Blood Cells, Urine 0-2 /hpf (0-5)
[2019-05-30 12:35] LABS: U Amphetamine Screen DETECTED; U Barbituate Screen Not Detected; U Benzodiazapine Screen Not Detected; U Buprenorphine Screen Not Detected; U Cannabinoids Screen DETECTED; U Cocaine Screen Not Detected; U Methadone Screen Not Detected; U Methamphetamine Screen DETECTED; U Opiates Screen DETECTED; U Oxycodone Screen Not Detected; U Phencyclidine Screen Not Detected; U Propoxyphene Screen Not Detected
--- NOTE | 2019-05-30 19:03 | NUR ---
PT ARRIVED TO ROOM AT 1809. PT'S UROSTOMY BAG HAD COME UNDONE AT SOME POINT TODAY AND PT WAS SOAKED WITH URINE. PT WANTS TO SLEEP, BUT WILL TALK IS ASKED QUESTIONS. PT JUST WANTED TO CURL UP. PT WAS WASHED UP AND COVERED SO URINE DOES NOT SOAK HIM. NEW BAG ORDERED TO BE SENT UP. PT HAS WARM BLANKETS AND CALL LIGHT AVAIBLE. WILL CONTINUE TO MONITOR.
--- NOTE | 2019-05-31 06:23 | NUR ---
SHIFT SUMMARY DURING ADMIT ASSESSMENT LAST NIGHT PT WAS VERY DROWSY & HARD TO KEEP AWAKE, HE KEPT FALLING ASLEEP DURING QUESTIONS & I HAD TO STERNAL RUB TO WAKE HIM UP & THEN HE WOULD NOD HEAD APPROPRIATELY OR STATE YES/NO TO QUESTIONS. THIS AM PT OPENS EYES TO VERBAL STIMULI, IS AOX4, AND MORE VERBAL THEN LAST NIGHT. REPORTS 6-10/10 PAIN IN L SIDE/ABD, MEDICATED W/DILAUDID PER ORDERS & STATES RELIEF, AFTER GIVING PAIN MEDS THIS AM HE STATES PAIN DROPS TO 0/10. VSS. TELE RUNNING NSR W/HR 96. APPLIED NEW UROSTOMY BAG & WAFER LAST NIGHT, UROSTOMY DRAINING CLEAR LIGHT YELLOW URINE. PT REPORTED NAUSEA, MEDICATED W/PHENERGAN. STATED MILD RELIEF BUT FELT ACID/HEARTBURN IN THROAT, THEREFORE GAVE ORAL PRILOSEC W/A SIP OF WATER. OTHERWISE PT HAS BEEN NPO SINCE MIDNIGHT FOR POSSIBLE PROCEDURE TODAY. THIS AM PT WAS TEARFUL & ADMITTED TO USING METHAMPHETAMINE ON 05/28/19, STATES HE ONLY DOES IT "ONCE IN AWHILE". CALL LIGHT IN REACH. TM.
[2019-05-31 06:24] LABS: BASOPHILS ABSOLUTE AUTO 0.04 K/mm3 (0.00-0.23); BASOPHILS PERCENT AUTO 0 % (0-2); EOSINOPHILS ABSOLUTE AUTO 0.03 K/mm3 (0.00-0.68); EOSINOPHILS PERCENT AUTO 0 % (0-6); Hematocrit 46.6 % (37.0-53.0); Hemoglobin 14.9 g/dL (13.5-17.5); IMMATURE GRAN ABSOLUTE AUTO 0.05 K/mm3 (0.00-0.10); IMMATURE GRAN PERCENT AUTO 0 % (0-1); LYMPHOCYTES ABSOLUTE AUTO 0.98 K/mm3 (0.84-5.20); LYMPHOCYTES PERCENT AUTO 6 % (21-46); MONOCYTES ABSOLUTE AUTO 1.35 K/mm3 (0.16-1.47); MONOCYTES PERCENT AUTO 8 % (4-13); Mean Corpuscular HGB 29.6 pg (26.0-34.0); Mean Corpuscular Volume 93 fL (80-100); Mean Platelet Volume 10.9 fL (9.1-12.4); NEUTROPHILS ABSOLUTE AUTO 13.69 K/mm3 (1.96-9.15); NEUTROPHILS PERCENT AUTO 85 % (41-73); Platelet Count 224 K/mm3 (150-400); RDW Standard Deviation 47.8 fL (35.1-46.3); Red Blood Cell Count 5.03 M/mm3 (4.30-5.90); White Blood Cell Count 16.14 K/mm3 (4.00-11.30)
[2019-05-31 06:45] LABS: Albumin, Blood 2.9 g/dL (3.4-5.0); Anion Gap 9 mmol/L (6-16); Blood Urea Nitrogen 22 mg/dL (8-24); Bun/Creatinine Ratio 18.8 (12.0-20.0); CO2, Blood 23 mmol/L (21-32); Calcium, Blood 8.2 mg/dL (8.5-10.1); Chloride, Blood 108 mmol/L (98-108); Creatinine, Blood 1.17 mg/dL (0.60-1.20); Glomerular Filtration Rate >60 (60-); Glucose, Blood 98 mg/dL (70-99); Phosphorus, Blood 2.8 mg/dL (2.5-4.9); Potassium, Blood 3.9 mmol/L (3.5-5.5); Sodium, Blood 140 mmol/L (136-145)
--- NOTE | 2019-05-31 17:49 | NUR ---
SHIFT SUMMARY PATIENT A/O. CALL LIGHT IN REACH. UROSTOMY DRAINING, REDDENED URINE, DR. DUEÑAS AWARE. NEPHROSTOMY PLACE DURING SHIFT, CDI. PATIENT SLEPT LARGE PORTION OF SHIFT. FLUIDS INFUSED THROUGHOUT SHIFT. PATIENT ABLE TO MAKE TURNS TO AVOID SKIN BREAKDOWN. TELEMETRY IN PLACE AND MONITORING. PATIENT DIDN'T AMBULATE DURING SHIFT, BUT AMBULATES WITHOUT WALKER OR DE LA PAZ AT BASELINE.
[2019-05-31 20:24] LABS: BASOPHILS ABSOLUTE AUTO 0.02 K/mm3 (0.00-0.23); BASOPHILS PERCENT AUTO 0 % (0-2); EOSINOPHILS ABSOLUTE AUTO 0.06 K/mm3 (0.00-0.68); EOSINOPHILS PERCENT AUTO 0 % (0-6); Hematocrit 42.7 % (37.0-53.0); Hemoglobin 13.9 g/dL (13.5-17.5); IMMATURE GRAN ABSOLUTE AUTO 0.07 K/mm3 (0.00-0.10); IMMATURE GRAN PERCENT AUTO 0 % (0-1); LYMPHOCYTES ABSOLUTE AUTO 1.39 K/mm3 (0.84-5.20); LYMPHOCYTES PERCENT AUTO 9 % (21-46); MONOCYTES ABSOLUTE AUTO 1.23 K/mm3 (0.16-1.47); MONOCYTES PERCENT AUTO 8 % (4-13); Mean Corpuscular HGB Conc 32.6 g/dL (31.5-36.5); Mean Corpuscular Volume 92 fL (80-100); NEUTROPHILS ABSOLUTE AUTO 13.24 K/mm3 (1.96-9.15); NEUTROPHILS PERCENT AUTO 83 % (41-73); Platelet Count 205 K/mm3 (150-400); RDW Coefficient Variation 14.3 % (11.7-14.2); RDW Standard Deviation 48.4 fL (35.1-46.3); Red Blood Cell Count 4.63 M/mm3 (4.30-5.90); White Blood Cell Count 16.01 K/mm3 (4.00-11.30)
--- NOTE | 2019-06-01 06:26 | NUR ---
SHIFT SUMMARY PT IS A 63 Y/O MALE, ADMITTED WITH A UTI WITH CHRONIC UROSTOMY IN PLACE. PT HAD A NEPHROSTOMY TUBE, CURRENTLY CAPPED, SURGICALLY PLACED YESTERDAY. DURING POST-SURGICAL VITALS AT THE START OF SHIFT, THE PT'S BP DROPPED FROM 139/79 TO 91/59 OVER TWO HOURS, WELL REPORTING SEVERE PAIN SHORTLY AFTER RECEIVING IV PAIN MEDS. THE HOSPITALIST AGA DOMINGUEZ WAS CONSULTED, WHO THEN ASKED THIS RN TO CONSULT WITH DR DUEÑAS, WHO PERFORMED THE PROCEDURE. DR. DUEÑAS ORDERED A LIMITED RENAL CT. NO CHANGES IN ORDERS AFTER CT WAS COMPLETED, AND THE PT'S BP DID IMPROVE, COMING UP TO THE 110S SYSTOLICALLY. THE PT WAS MEDICATED TWICE WITH PRN DILAUDID FOR PAIN, AND SLEPT OFF AND ON DURING THE NIGHT. HE REMAINED ON CONTINUOUS NS @ 125 ML/HR. PT'S HEART RATE WAS ALSO ELEVATED THROUGH THE NIGHT, IN THE 110S PER TELE CAKE DECORATOR. ALL OTHER VITAL SIGNS STABLE. NO COMPLAINTS OF NAUSEA OR SOB. PT'S UROSTOMY TUBE CONTINUES TO DRAIN CRANBERRY COLORED URINE. NO OTHER ACUTE CHANGES IN PT CONDITION NOTED. WILL CONTINUE TO MONITOR AND TREAT PER EMAR UNTIL HAND OFF TO DAY SHIFT RN.
--- NOTE | 2019-06-01 14:02 | NUR ---
1350 DR. DUEÑAS IN TO PLACE DRAIN ON L NEPHROSTOMY TUBE. NO DRAINAGE AT THIS TIME.
--- NOTE | 2019-06-01 18:37 | NUR ---
SHIFT SUMMARY. A&OX4, SBA TO CHAIR, AWARE OF LIMITATIONS AND CALLS APPROPRIATELY. PT DENIES SOB. PT REPORTS PAIN TO L FLANK THIS AM THAT WAS MANAGED WELL WITH CURRENT ORDERS. AFTER DRAINAGE BAG PLACED TO L NEPHROSTOMY TUBE THIS AFTERNOON, PT REPORTS THAT PAIN HAS IMPROVED THIS EVENING. CLEAR IVORY DRAINAGE IN COLLECTION BAG TUBE SMALL AND AMOUNT IN DRAINAGE BAG. PT HAD ONE EPISOSDE OF VOMITTING WITH GREEN EMESIS, PRN ZOFRAN GIVEN, NO FURTHER NAUSEA THIS SHIFT.
--- NOTE | 2019-06-02 04:02 | NUR ---
EXTRUDER TENDER SUMMARY PT A/O X4. SLEPT WELL THROUGHOUT THE NIGHT. PT COMPLAINED OF SOME L FLANK PAIN. MEDICATED HIM WITH DILAUDID 0.5ML IV X2 THIS SHIFT. CONT. NS RUNNING AT 125ML/HR. VSS. NO ACUTE CHANGES. UROSTOMY AND NEPHROSTOMY TUBE PATENT AND DRAINING. BED IN LOWEST POSITION, CALL LIGHT WITHIN REACH. WILL CONTINUE TO MONITOR.
[2019-06-02] MEDS ORDERED: ACET325 PO (12:46)
[2019-06-02] MEDS ORDERED: Nicoderm Cq1 EAC1 TOP (12:47)
--- NOTE | 2019-06-02 14:24 | NUR ---
1414 PT DISCHARGED HOME VIA PERSONAL VEHICLE ACCOMPANIED AND DRIVEN BY BROTHER. PT ESCORTED TO ENTRANCE VIA W/C BY THIS RN. IV REMOVED. D/C PAPERWORK REVIEWED WITH PT AND COPY PROVIDED. FOLLOW UP APPOINTMENTS FOR UROLOGY AND PCP MADE FOR 06/14/19. PT REQUESTED THAT NICOTINE PATCH PRESCRIPTION NOT BE FILLED.
== END 2019-06-02 14:12 | disposition home or self-care (01) | DRG 872 ==
LOC: ER 10:28 → MEDS 16:06
PROVIDERS: Emergency Medicine; Nurse Practitioner Acute Care; ADMIT Internal Medicine
PROC: 0T9430Z Drainage of Left Kidney Pelvis with Drainage Device, Percutaneous Approach (ICD-10-PCS; principal; 2019-05-30)
PROC: 0T773DZ Dilation of Left Ureter with Intraluminal Device, Percutaneous Approach (ICD-10-PCS; 2019-05-30)
DX: A41.9 Sepsis, unspecified organism (principal); F11.20 Opioid dependence, uncomplicated; N13.0 Hydronephrosis with ureteropelvic junction obstruction; J44.9 Chronic obstructive pulmonary disease, unspecified; K21.9 Gastro-esophageal reflux disease without esophagitis; I10 Essential (primary) hypertension; F10.20 Alcohol dependence, uncomplicated; F15.10 Other stimulant abuse, uncomplicated; N31.9 Neuromuscular dysfunction of bladder, unspecified; Q05.9 Spina bifida, unspecified; F17.210 Nicotine dependence, cigarettes, uncomplicated
CPT/HCPCS: 36415; 50432; 50693; 71045; 74150; 74177; 80053; 80069; 81001; 83605; 85025; 87040; 87086; 93005; 93010; 94640; 94664; 94667; 94760; 96361; 96365; 96375; 96376; 98960; 99152; 99153; 99285-25; C1729; C1769; C1887; C2617; C9113; G0480; J1170; J1644; J1650; J1956; J2060; J2250; J2405; J2550; J3010; J7030; J7040; Q9967

== ENCOUNTER 2019-07-14 09:17 | Emergency (ER) | payer MEDICARE, OTHER ==
[~2019-07-14] VITALS: Ht 170.2 cm; Wt 57.1 kg
[~2019-07-14 09:17] MED LIST changes: +ACET325 PO; +Nicoderm Cq1 EAC1 TOP
[2019-07-14 11:32] LABS: BASOPHILS ABSOLUTE AUTO 0.02 K/mm3 (0.00-0.23); BASOPHILS PERCENT AUTO 0 % (0-2); EOSINOPHILS ABSOLUTE AUTO 0.09 K/mm3 (0.00-0.68); EOSINOPHILS PERCENT AUTO 1 % (0-6); Hematocrit 45.6 % (37.0-53.0); Hemoglobin 14.8 g/dL (13.5-17.5); IMMATURE GRAN ABSOLUTE AUTO 0.01 K/mm3 (0.00-0.10); IMMATURE GRAN PERCENT AUTO 0 % (0-1); LYMPHOCYTES ABSOLUTE AUTO 2.17 K/mm3 (0.84-5.20); LYMPHOCYTES PERCENT AUTO 28 % (21-46); MONOCYTES ABSOLUTE AUTO 0.58 K/mm3 (0.16-1.47); MONOCYTES PERCENT AUTO 7 % (4-13); Mean Corpuscular HGB 29.6 pg (26.0-34.0); Mean Corpuscular HGB Conc 32.5 g/dL (31.5-36.5); Mean Corpuscular Volume 91 fL (80-100); Mean Platelet Volume 10.3 fL (9.1-12.4); NEUTROPHILS ABSOLUTE AUTO 5.03 K/mm3 (1.96-9.15); NEUTROPHILS PERCENT AUTO 64 % (41-73); Platelet Count 270 K/mm3 (150-400); RDW Coefficient Variation 13.6 % (11.7-14.2); RDW Standard Deviation 45.5 fL (35.1-46.3)
[2019-07-14 11:45] LABS: Anion Gap 4 mmol/L (6-16); Blood Urea Nitrogen 22 mg/dL (8-24); Bun/Creatinine Ratio 28.5 (12.0-20.0); CO2, Blood 28 mmol/L (21-32); Calcium, Blood 8.9 mg/dL (8.5-10.1); Chloride, Blood 106 mmol/L (98-108); Creatinine, Blood 0.77 mg/dL (0.60-1.20); Glomerular Filtration Rate >60 (60-); Glucose, Blood 88 mg/dL (70-99); Potassium, Blood 3.9 mmol/L (3.5-5.5); Sodium, Blood 138 mmol/L (136-145)
[2019-07-14] MEDS ORDERED: LORCET 5-325 M1 EACH PO (12:17)
[2019-07-14] MEDS ORDERED: KEFLEX500 MG PO (12:17)
== END 2019-07-14 12:39 | disposition home or self-care (01) ==
LOC: ER 09:17
PROVIDERS: Emergency Medicine
DX: T83.84XA Pain due to genitourinary prosthetic devices, implants and grafts, initial encounter (principal); J44.9 Chronic obstructive pulmonary disease, unspecified; I10 Essential (primary) hypertension; K21.9 Gastro-esophageal reflux disease without esophagitis; F17.200 Nicotine dependence, unspecified, uncomplicated; Z79.899 Other long term (current) drug therapy; Z88.5 Allergy status to narcotic agent
CPT/HCPCS: 76770; 80048; 85025; 99283-25

== ENCOUNTER 2020-10-26 20:17 | Emergency (ER) | payer MEDICARE ==
[~2020-10-26] VITALS: Ht 172.7 cm; Wt 59.0 kg
[~2020-10-26 20:17] MED LIST changes: +KEFLEX500 MG PO; +LORCET 5-325 M1 EACH PO
[2020-10-26 21:18] LABS: Appearance, Urine Cloudy (Clear); Bilirubin, Urine Neg (Neg); Blood, Urine 5+ (Neg); Glucose Qualitative, Urine Neg (Neg); Ketones, Urine Neg (Neg); Leukocyte Esterase, Urine 3+ (Neg); Nitrite, Urine Neg (Neg); Protein, Urine 3+ (Neg); Urobilinogen, Urine NORM (Normal)
[2020-10-26 21:21] LABS: BASOPHILS ABSOLUTE AUTO 0.05 K/mm3 (0.00-0.23); BASOPHILS PERCENT AUTO 1 % (0-2); EOSINOPHILS ABSOLUTE AUTO 0.15 K/mm3 (0.00-0.68); EOSINOPHILS PERCENT AUTO 2 % (0-6); Hematocrit 45.1 % (37.0-53.0); Hemoglobin 14.7 g/dL (13.5-17.5); IMMATURE GRAN ABSOLUTE AUTO 0.02 K/mm3 (0.00-0.10); IMMATURE GRAN PERCENT AUTO 0 % (0-1); LYMPHOCYTES ABSOLUTE AUTO 2.22 K/mm3 (0.84-5.20); LYMPHOCYTES PERCENT AUTO 29 % (21-46); MONOCYTES ABSOLUTE AUTO 0.62 K/mm3 (0.16-1.47); MONOCYTES PERCENT AUTO 8 % (4-13); Mean Corpuscular HGB 29.1 pg (26.0-34.0); Mean Corpuscular HGB Conc 32.6 g/dL (31.5-36.5); Mean Corpuscular Volume 89 fL (80-100); Mean Platelet Volume 10.5 fL (9.1-12.4); NEUTROPHILS ABSOLUTE AUTO 4.73 K/mm3 (1.96-9.15); NEUTROPHILS PERCENT AUTO 61 % (41-73); Platelet Count 292 K/mm3 (150-400); RDW Coefficient Variation 13.8 % (11.7-14.2); RDW Standard Deviation 45.1 fL (35.1-46.3); Red Blood Cell Count 5.05 M/mm3 (4.30-5.90); White Blood Cell Count 7.79 K/mm3 (4.00-11.30)
[2020-10-26 21:26] LABS: Color, Urine Pale Yellow (P-Yellow)
[2020-10-26 21:27] LABS: White Blood Cells, Urine TNTC /hpf (0-5)
[2020-10-26 21:29] LABS: Bacteria Many /hpf; Squamous Epithelial Cells Rare /hpf (Few)
[2020-10-26 21:34] LABS: Alanine Aminotransfer (ALT/SGP 24 U/L (12-78); Albumin, Blood 3.3 g/dL (3.4-5.0); Albumin/Globulin Ratio 0.8 (0.8-1.8); Alk Phos 132 U/L (50-136); Anion Gap 8 mmol/L (6-16); Aspartate Aminotrans (AST/SGOT 17 U/L (12-37); Bilirubin, Total 0.3 mg/dL (0.1-1.0); Blood Urea Nitrogen 19 mg/dL (8-24); Bun/Creatinine Ratio 20.9 (12.0-20.0); CO2, Blood 23 mmol/L (21-32); Calcium, Blood 8.3 mg/dL (8.5-10.1); Chloride, Blood 107 mmol/L (98-108); Creatinine, Blood 0.91 mg/dL (0.60-1.20); Globulin, Blood 4.1 g/dL (2.2-4.0); Glomerular Filtration Rate >60 (60-); Glucose, Blood 116 mg/dL (70-99); Potassium, Blood 3.8 mmol/L (3.5-5.5); Sodium, Blood 138 mmol/L (136-145); Total Protein, Blood 7.4 g/dL (6.4-8.2)
== END 2020-10-27 02:02 | disposition short-term general hospital (02) ==
LOC: ER 20:17
PROVIDERS: Physician Assistant
DX: N13.6 Pyonephrosis (principal); J44.9 Chronic obstructive pulmonary disease, unspecified; K21.9 Gastro-esophageal reflux disease without esophagitis; I10 Essential (primary) hypertension; F17.210 Nicotine dependence, cigarettes, uncomplicated; Z88.5 Allergy status to narcotic agent; Z91.018 Allergy to other foods; Z79.899 Other long term (current) drug therapy
CPT/HCPCS: 74176; 80053; 81001; 85025; 87086; 96374; 96375; 96376; 99285-25; J0696; J2270; J2405

== ENCOUNTER 2020-12-18 16:32 | Emergency (ER) | payer MEDICARE, OTHER ==
[~2020-12-18] VITALS: Ht 170.2 cm; Wt 56.7 kg
[2020-12-18] MEDS ORDERED: SYMBICORT 16010.2 GM INH (16:53)
[2020-12-18 18:31] LABS: Source, Urine Urostomy Bag
[2020-12-18 18:40] LABS: Appearance, Urine Cloudy (Clear); Bilirubin, Urine Neg (Neg); Blood, Urine 5+ (Neg); Color, Urine Amber (P-Yellow); Glucose Qualitative, Urine Neg (Neg); Ketones, Urine Neg (Neg); Leukocyte Esterase, Urine 3+ (Neg); Nitrite, Urine Pos (Neg); Protein, Urine 3+ (Neg); Urobilinogen, Urine 1+ (Normal)
[2020-12-18 18:47] LABS: Bacteria Many /hpf; Red Blood Cells, Urine TNTC /hpf (0-2); Squamous Epithelial Cells Not Seen /hpf (Few); White Blood Cells, Urine 50-100 /hpf (0-5)
[2020-12-18 19:53] LABS: BASOPHILS ABSOLUTE AUTO 0.01 K/mm3 (0.00-0.23); BASOPHILS PERCENT AUTO 0 % (0-2); EOSINOPHILS ABSOLUTE AUTO 0.03 K/mm3 (0.00-0.68); EOSINOPHILS PERCENT AUTO 0 % (0-6); Hematocrit 38.6 % (37.0-53.0); Hemoglobin 12.6 g/dL (13.5-17.5); IMMATURE GRAN ABSOLUTE AUTO 0.03 K/mm3 (0.00-0.10); IMMATURE GRAN PERCENT AUTO 0 % (0-1); LYMPHOCYTES ABSOLUTE AUTO 1.23 K/mm3 (0.84-5.20); LYMPHOCYTES PERCENT AUTO 15 % (21-46); MONOCYTES ABSOLUTE AUTO 0.53 K/mm3 (0.16-1.47); MONOCYTES PERCENT AUTO 6 % (4-13); Mean Corpuscular HGB 28.5 pg (26.0-34.0); Mean Corpuscular HGB Conc 32.6 g/dL (31.5-36.5); Mean Corpuscular Volume 87 fL (80-100); Mean Platelet Volume 9.9 fL (9.1-12.4); NEUTROPHILS ABSOLUTE AUTO 6.44 K/mm3 (1.96-9.15); NEUTROPHILS PERCENT AUTO 78 % (41-73); Platelet Count 214 K/mm3 (150-400); RDW Coefficient Variation 14.2 % (11.7-14.2); RDW Standard Deviation 45.4 fL (35.1-46.3); Red Blood Cell Count 4.42 M/mm3 (4.30-5.90); White Blood Cell Count 8.27 K/mm3 (4.00-11.30)
[2020-12-18 20:22] LABS: Alanine Aminotransfer (ALT/SGP 24 U/L (12-78); Albumin, Blood 2.5 g/dL (3.4-5.0); Albumin/Globulin Ratio 0.6 (0.8-1.8); Alk Phos 108 U/L (50-136); Anion Gap 7 mmol/L (6-16); Aspartate Aminotrans (AST/SGOT 19 U/L (12-37); Bilirubin, Total 0.2 mg/dL (0.1-1.0); Blood Urea Nitrogen 18 mg/dL (8-24); Bun/Creatinine Ratio 18.1 (12.0-20.0); CO2, Blood 25 mmol/L (21-32); Calcium, Blood 7.8 mg/dL (8.5-10.1); Chloride, Blood 105 mmol/L (98-108); Glomerular Filtration Rate >60 (60-); Glucose, Blood 115 mg/dL (70-99); Potassium, Blood 3.6 mmol/L (3.5-5.5); Sodium, Blood 137 mmol/L (136-145); Total Protein, Blood 6.5 g/dL (6.4-8.2)
[2020-12-18] MEDS ORDERED: OXYACE7.5T PO (20:41)
[2020-12-18] MEDS ORDERED: CIPR500 PO (20:43)
== END 2020-12-18 21:02 | disposition home or self-care (01) ==
LOC: ER 16:32
PROVIDERS: Emergency Medicine
DX: N12 Tubulo-interstitial nephritis, not specified as acute or chronic (principal); N20.2 Calculus of kidney with calculus of ureter; I10 Essential (primary) hypertension; J44.9 Chronic obstructive pulmonary disease, unspecified; F17.210 Nicotine dependence, cigarettes, uncomplicated; N31.9 Neuromuscular dysfunction of bladder, unspecified; Q05.9 Spina bifida, unspecified; Z93.6 Other artificial openings of urinary tract status; Z88.5 Allergy status to narcotic agent; Z91.018 Allergy to other foods
CPT/HCPCS: 74176; 80053; 81001; 85025; 87086; 96365; 96375; 99285-25; J0696; J1885

== ENCOUNTER 2021-03-13 22:14 | Inpatient (IN) | payer MEDICARE ==
[~2021-03-13] VITALS: Ht 172.7 cm; Wt 62.3 kg
[~2021-03-13 22:14] MED LIST changes: +OXYACE7.5T PO; +SYMBICORT 16010.2 GM INH
[2021-03-13 22:52] LABS: BASOPHILS ABSOLUTE AUTO 0.03 K/mm3 (0.00-0.23); BASOPHILS PERCENT AUTO 0 % (0-2); EOSINOPHILS ABSOLUTE AUTO 0.06 K/mm3 (0.00-0.68); EOSINOPHILS PERCENT AUTO 1 % (0-6); Hematocrit 45.2 % (37.0-53.0); Hemoglobin 14.6 g/dL (13.5-17.5); IMMATURE GRAN ABSOLUTE AUTO 0.04 K/mm3 (0.00-0.10); IMMATURE GRAN PERCENT AUTO 0 % (0-1); LYMPHOCYTES ABSOLUTE AUTO 2.16 K/mm3 (0.84-5.20); LYMPHOCYTES PERCENT AUTO 20 % (21-46); MONOCYTES ABSOLUTE AUTO 1.03 K/mm3 (0.16-1.47); MONOCYTES PERCENT AUTO 10 % (4-13); Mean Corpuscular HGB 28.6 pg (26.0-34.0); Mean Corpuscular HGB Conc 32.3 g/dL (31.5-36.5); Mean Corpuscular Volume 89 fL (80-100); Mean Platelet Volume 10.9 fL (9.1-12.4); NEUTROPHILS PERCENT AUTO 69 % (41-73); Platelet Count 297 K/mm3 (150-400); RDW Coefficient Variation 14.5 % (11.7-14.2); RDW Standard Deviation 47.2 fL (35.1-46.3); Red Blood Cell Count 5.11 M/mm3 (4.30-5.90); White Blood Cell Count 10.82 K/mm3 (4.00-11.30)
[2021-03-13 22:53] LABS: Base Excess Venous 3.1 mmol/L; Bicarbonate Venous 24.9 mmol/L (24.0-30.0); PCO2 Venous 55.6 mmHg (38-42); PO2 Venous 33.3 mmHg (38-42); pH Blood Venous 7.33 (7.34-7.37)
[2021-03-13 23:02] LABS: Anion Gap 7 mmol/L (6-16); Blood Urea Nitrogen 12 mg/dL (8-24); Bun/Creatinine Ratio 12.6 (12.0-20.0); CO2, Blood 27 mmol/L (21-32); Calcium, Blood 8.6 mg/dL (8.5-10.1); Chloride, Blood 104 mmol/L (98-108); Creatinine, Blood 0.95 mg/dL (0.60-1.20); Glomerular Filtration Rate >60 (60-); Glucose, Blood 124 mg/dL (70-99); Potassium, Blood 3.4 mmol/L (3.5-5.5); Sodium, Blood 138 mmol/L (136-145)
[2021-03-14 00:29] LABS: Source, Urine Clean Catch
[2021-03-14 00:38] LABS: Appearance, Urine Cloudy (Clear); Blood, Urine 5+ (Neg); Color, Urine Amber (P-Yellow); Glucose Qualitative, Urine Neg (Neg); Ketones, Urine 1+ (Neg); Leukocyte Esterase, Urine 3+ (Neg); Nitrite, Urine Pos (Neg); Protein, Urine 3+ (Neg); Urobilinogen, Urine 1+ (Normal)
[2021-03-14 00:44] LABS: Bilirubin, Urine 1+ (Neg)
[2021-03-14 00:45] LABS: Bacteria Many /hpf; Red Blood Cells, Urine TNTC /hpf (0-2); Squamous Epithelial Cells Few /hpf (Few); White Blood Cells, Urine TNTC /hpf (0-5)
[2021-03-14 04:43] LABS: BASOPHILS ABSOLUTE AUTO 0.01 K/mm3 (0.00-0.23); BASOPHILS PERCENT AUTO 0 % (0-2); EOSINOPHILS PERCENT AUTO 0 % (0-6); Hematocrit 42.8 % (37.0-53.0); Hemoglobin 13.9 g/dL (13.5-17.5); IMMATURE GRAN ABSOLUTE AUTO 0.02 K/mm3 (0.00-0.10); IMMATURE GRAN PERCENT AUTO 0 % (0-1); LYMPHOCYTES ABSOLUTE AUTO 0.41 K/mm3 (0.84-5.20); LYMPHOCYTES PERCENT AUTO 4 % (21-46); MONOCYTES ABSOLUTE AUTO 0.11 K/mm3 (0.16-1.47); MONOCYTES PERCENT AUTO 1 % (4-13); Mean Corpuscular HGB 28.6 pg (26.0-34.0); Mean Corpuscular HGB Conc 32.5 g/dL (31.5-36.5); Mean Corpuscular Volume 88 fL (80-100); Mean Platelet Volume 10.8 fL (9.1-12.4); NEUTROPHILS ABSOLUTE AUTO 8.97 K/mm3 (1.96-9.15); NEUTROPHILS PERCENT AUTO 94 % (41-73); Platelet Count 259 K/mm3 (150-400); RDW Coefficient Variation 14.5 % (11.7-14.2); RDW Standard Deviation 46.5 fL (35.1-46.3); Red Blood Cell Count 4.86 M/mm3 (4.30-5.90); White Blood Cell Count 9.52 K/mm3 (4.00-11.30)
[2021-03-14 05:02] LABS: Alanine Aminotransfer (ALT/SGP 25 U/L (12-78); Albumin, Blood 2.8 g/dL (3.4-5.0); Albumin/Globulin Ratio 0.6 (0.8-1.8); Alk Phos 133 U/L (50-136); Anion Gap 6 mmol/L (6-16); Aspartate Aminotrans (AST/SGOT 20 U/L (12-37); Bilirubin, Total 0.4 mg/dL (0.1-1.0); Blood Urea Nitrogen 12 mg/dL (8-24); Bun/Creatinine Ratio 14.1 (12.0-20.0); CO2, Blood 28 mmol/L (21-32); Calcium, Blood 8.7 mg/dL (8.5-10.1); Chloride, Blood 104 mmol/L (98-108); Creatinine, Blood 0.85 mg/dL (0.60-1.20); Globulin, Blood 4.5 g/dL (2.2-4.0); Glomerular Filtration Rate >60 (60-); Glucose, Blood 164 mg/dL (70-99); Potassium, Blood 3.6 mmol/L (3.5-5.5); Sodium, Blood 138 mmol/L (136-145); Total Protein, Blood 7.3 g/dL (6.4-8.2)
--- NOTE | 2021-03-14 06:42 | NUR ---
ADMISSION/ WEIGHT REDUCTION SPECIALIST SUMMARY PATIENT WAS BROUGHT FROM THE ED. HE IS ALERT AND ORIENTED. HE IS ON OXYGEN AT 5 LITERS WHICH HE DOES NOT WEAR AT HOME. HE ALSO HAS PRODUCTIVE COUGH. HE STATED HE WAS IN PAIN WHEN HE GOT TO THE AND HIS MED GIOVEN, HE WAS MADE AWARE OF [facility] ENVIRONMENT,SAFETY MEAASURE ENSURED. WILL CONTINUE TO MONITOR PT
--- NOTE | 2021-03-14 17:36 | NUR ---
SHIFT SUMMARY PATIENT DENIES PAIN AND NASUEA. PATIENT VERY ANXIOUS TODAY, 1MG IV ATIVAN GIVEN FOR PANIC ATTACK WITH DYSPNEA. PATIENT ON NON-REBREATHER UNTIL HE WAS ABLE TO CALM DOWN. TRANSITIONED BACK TO OXYMIZER. PATIENT VERY ACTIVITY INTOLERANT. GOOD PO INTAKE.
[2021-03-15 01:55] LABS: PCO2 Arterial 53.3 mmHg (35-45); PO2 Arterial >500 mmHg (80-100); pH Blood Arterial 7.31 (7.35-7.45)
[2021-03-15 05:09] LABS: PCO2 Arterial 47.4 mmHg (35-45); PO2 Arterial 91.9 mmHg (80-100); pH Blood Arterial 7.38 (7.35-7.45)
--- NOTE | 2021-03-15 06:00 | NUR ---
SHIFT SUMMARY REPORT RECIEVED FROM JOHN Smith RN, PATIENT TO ICU 13 FROM MEDICAL FLOOR @0135. PATIENT ALERT AND ORIENTED X4, VERY ANXIOUS AND WORKING HARD TO BREATH RR IN THE 30s AND HR IN THE 150s. PLACED IN CPAP 13 AND 100% FI02. LUNGS WHEEZY T/O. CALLED CHARLES DOWLING TO ROOM PATIENT MEDICATED WITH SL MORPHINE AND STEROIDS SEE EMAR. PATIENT PLACED IN BIPAP 16/8 FI02 30%. RR NOW IN THE 20s HR 112, PATIENT MORE ALERT AND STATES HE FEELS MUCH BETTER. UROSTOMY DRAINING DARK IVORY URINE. PATIENT ABLE TO MOVE SELF IN BED, ASSISTED WITH BOOSTING PATIENT AND TURNING. CALL LIGHT IN REACH.
[2021-03-15 07:28] LABS: Hematocrit 44.8 % (37.0-53.0); Hemoglobin 14.6 g/dL (13.5-17.5); Mean Corpuscular HGB 28.9 pg (26.0-34.0); Mean Corpuscular HGB Conc 32.6 g/dL (31.5-36.5); Mean Corpuscular Volume 89 fL (80-100); Mean Platelet Volume 10.5 fL (9.1-12.4); Platelet Count 297 K/mm3 (150-400); RDW Coefficient Variation 14.7 % (11.7-14.2); RDW Standard Deviation 47.5 fL (35.1-46.3); Red Blood Cell Count 5.05 M/mm3 (4.30-5.90); White Blood Cell Count 13.42 K/mm3 (4.00-11.30)
[2021-03-15 07:51] LABS: Albumin, Blood 2.9 g/dL (3.4-5.0); Albumin/Globulin Ratio 0.6 (0.8-1.8); Bilirubin, Total 0.2 mg/dL (0.1-1.0); Bun/Creatinine Ratio 25.4 (12.0-20.0); Calcium, Blood 9.4 mg/dL (8.5-10.1); Creatinine, Blood 1.22 mg/dL (0.60-1.20); Globulin, Blood 4.8 g/dL (2.2-4.0); Potassium, Blood 3.8 mmol/L (3.5-5.5); Total Protein, Blood 7.7 g/dL (6.4-8.2)
--- NOTE | 2021-03-15 18:09 | NUR ---
Received call from gabrielle Jackson RN for this pt. Pt has a history of COPD, Spina Biffida, and a colostomy bag r/t the spina biffida. The pt has been hospitalized many times with COPD exacerbations. His daughter Arlet reports each year, his symptoms become worse. She states pt is currently on disability services, and has been since he was around 31 years old due to Spina Biffida. She states she worries often, as pt's health is poor, and he has lived a bit of a "rough life" as she calls it. He currently lives in a motel as his funds are limited, and it's cheaper than renting a home. Also, he has a history of non-violent alf time, which she states usually slims his chances of being eligible, even for low income housing. She became tearful during this visit, as she states she is unable to spend as much time with him as she would like, in part because he will at times cross her boundaries by name calling at her or just being "downright mean". He is pleasant with me at our visit, but could definitly use some follow up regarding his FULL CODE status, and disease process. Today's visit became more of a visit with daughter Arlet. I plan to follow up with Arlet on Thursday. Placed her name and phone number as NOK and 1st contact above pt's brother as requested by patient.
--- NOTE | 2021-03-15 20:55 | NUR ---
ASSUMED CARE @1900 PATIENT IS ALERT AND ORIENTED X4. APPEARS CALM AND COOPERATIVE. 02 SATS 94% ON 2L VIA NC. PRODUCTIVE COUGH, GREEN/RED PHLEGM, RED POSSIBLY D/T FAILED NG ATTEMPTS DURING DAY SHIFT. LUNGS SOUND WHEEZY T/O. HR ST @115. PATIENT STATES SLIGHT ABDOMINAL DISCOMFORT, DISTENTION AND FIRMNESS NOTED DAYSHIFT RN REPORTED PATIENT HAS HAD BOWEL MOVEMENT. UROSOTOMY DRAINING IVORY/RED URINE. PATIENT ABLE TO REPOSITION SELF IN BED. CALL LIGHT IN REACH. SEE SHIFT ASSESSMENT FOR MORE DETAIL.
[2021-03-16 03:25] LABS: Hematocrit 40.5 % (37.0-53.0); Hemoglobin 13.1 g/dL (13.5-17.5); Mean Corpuscular HGB 28.7 pg (26.0-34.0); Mean Corpuscular HGB Conc 32.3 g/dL (31.5-36.5); Mean Corpuscular Volume 89 fL (80-100); Mean Platelet Volume 10.4 fL (9.1-12.4); Platelet Count 309 K/mm3 (150-400); RDW Coefficient Variation 14.8 % (11.7-14.2); RDW Standard Deviation 47.8 fL (35.1-46.3); Red Blood Cell Count 4.57 M/mm3 (4.30-5.90); White Blood Cell Count 13.66 K/mm3 (4.00-11.30)
[2021-03-16 03:47] LABS: Albumin, Blood 2.6 g/dL (3.4-5.0); Albumin/Globulin Ratio 0.6 (0.8-1.8); Bilirubin, Total 0.2 mg/dL (0.1-1.0); Calcium, Blood 9.1 mg/dL (8.5-10.1); Creatinine, Blood 1.22 mg/dL (0.60-1.20); Globulin, Blood 4.1 g/dL (2.2-4.0); Potassium, Blood 3.9 mmol/L (3.5-5.5); Total Protein, Blood 6.7 g/dL (6.4-8.2)
--- NOTE | 2021-03-16 06:18 | NUR ---
SHIFT SUMMARY PATIENT ALERT AND ORIENTED X4. REMAINED CALM AND SLEPT MOST THE NIGHT. 02 SATS 93% ON 2L VIA NC. LUNGS SOUND COARSE IN UPPER LOBES WHICH PATIENT CLEARS WITH A COUGH, WHEEZY T/O. HR REMAINS ST @108. PATIENT DENIES NAUSEA THROUGHOUT THE NIGHT, SOME ABDOMINAL DISCOMFORT, ABDOMEN REMAINS DISTENDED AND FIRM. UROSTOMY EMPTIED, DRAINING IVORY/RED URINE. VSS, NO ACUTE CHANGES, CALL LIGHT IN REACH.
--- NOTE | 2021-03-16 13:23 | NUR ---
Pt resting in bed upon arrival. Pt denies pain at this time. Mild dypnea noted as evidenced by work of breathing when speaking. Offered therapeutic listening as Pt reports hopefullness of moving in with his sister. Pt reports being nauseated and difficulty hearing this RN due to ringing in his ears. Pt requests this RN to visit at a later time. Spoke with Primary RN Colt and discussed case. Palliative Care will F/U for advanced care planning.
--- NOTE | 2021-03-16 19:29 | NUR ---
ASSUMPTION OF CARE RECEIVED REPORT FROM MACIEL ENRIQUEZ. ASSUMED CARE OF PATIENT. PATIENT IN BED WITH EYES CLOSED, SPONTANEOULSY AWOKE. A/O, DROWSY FROM RECENT SEDATION. PRECEDEX OFF. 2L 02 [address] NC IN PLACE WITH 02 SATS ABOVE 95%. NG TO RIGHT NARE TO LIS WITH DARK BROWN DRAINAGE. UROSTOMY TO RIGHT ABD WITH DARK YELLOW DRAINAGE. VITALS STABLE AT THIS TIME. WARM BLANKET PROVIDED. EDUCATED PATIENT REGARDING NG TUBE AND RISKS OF PULLING IT OUT. PATIENT VERBALIZED UNDERSTANDING. WILL REVIEW ORDERS, CALL LIGHT IN REACH.
[2021-03-17 04:03] LABS: Hematocrit 26.5 % (37.0-53.0); Hemoglobin 8.1 g/dL (13.5-17.5); Mean Corpuscular HGB 28.6 pg (26.0-34.0); Mean Corpuscular HGB Conc 30.6 g/dL (31.5-36.5); Mean Corpuscular Volume 94 fL (80-100); Mean Platelet Volume 10.5 fL (9.1-12.4); Platelet Count 155 K/mm3 (150-400); RDW Coefficient Variation 14.7 % (11.7-14.2); RDW Standard Deviation 51.2 fL (35.1-46.3); Red Blood Cell Count 2.83 M/mm3 (4.30-5.90); White Blood Cell Count 8.21 K/mm3 (4.00-11.30)
--- NOTE | 2021-03-17 06:17 | NUR ---
SHIFT SUMMARY PATIENT DROWSY AT START OF SHIFT. NG TO RIGHT NARE TO LIS WITH DARK DRAINAGE. NS INFUSING AT 150ML/HR ORDERED. MEDICATIONS GIVEN CHARTED. PATEINT BECAME MORE COHERENT AND ALERT THROUGH THE NIGHT. USING CALL LIGHT APPROPRIATELY. CONTINUALLY ASKED FOR WATER, EDUCATED REGARDINGS SMALL BOWEL OBSTRUCTION AND THE REASON HE CAN NOT EAT OR DRINK. SEVERAL TIMES PATIENT RESPONDED WITH "GIVEN ME WATER OR IT WILL GET UGLY", OR "THIS ISN'T WHAT I AGREED TO, TAKE THE TUBE OUT". AFTER SEVERAL ATTEMPTS AT EDUCATING AND EXPLAINING PATIENT'S NEED FOR THE NG TUBE PATIENT SEEMED TO UNDERSTAND AND VERBALIZED UNDERSTANDING. PATIENT AT THIS TIME AWAKE, UTILIZING IPAD, UNDERSTANDS AND TOLERATES NG TUBE AND ORAL SWABS. IV IS SALINE LOCKED. VITALS STABLE ON 2L 02 VIA NC. UROSTOMY INTACT. NG TO LIS WITH NO CHANGES TO DRAINAGE APPEARANCE. CALL LIGHT IN REACH.
[2021-03-17 06:25] LABS: Anion Gap 6 mmol/L (6-16); Blood Urea Nitrogen 35 mg/dL (8-24); Bun/Creatinine Ratio 36.3 (12.0-20.0); CO2, Blood 30 mmol/L (21-32); Calcium, Blood 8.8 mg/dL (8.5-10.1); Chloride, Blood 108 mmol/L (98-108); Creatinine, Blood 0.96 mg/dL (0.60-1.20); Glomerular Filtration Rate >60 (60-); Glucose, Blood 142 mg/dL (70-99); Potassium, Blood 4.4 mmol/L (3.5-5.5); Sodium, Blood 144 mmol/L (136-145)
--- NOTE | 2021-03-17 10:16 | NUR ---
Pt alert enjoying some ice chips. Speaks in about three words and is labored. He has chronic ringing in his ears it is worse the past few days as well as headaches. He states he is struggling with sleep. He is very fearfull and anxious about living alone it is getting more difficult. His sister is here and he hopes to get her help as a caregiver. He feels it best if he lives in a facility. Adivised trinidad we need to discuss a life plan or he will have to much suffering and spend to much time in the hospital. Reviewed he needs a decision maker. At this time he wants his daughter or brother to make decisions. He want to stay a full code but is going to discuss that with his daughter and may change that. Advised him will work on his symptoms and get a plan for his care.
--- NOTE | 2021-03-17 11:57 | NUR ---
Pt resting in room, appears calm, VSS. Pt has intermittently requested ice chips, approved by .
--- NOTE | 2021-03-17 12:26 | NUR ---
Pt out of bed to chair. Chair locked/legs raised/position of comfort for patient. Clutter-free environment. Secured tubing/lines. Call light in patient's lap and he demonstrates appropriate use. Linens changed.
--- NOTE | 2021-03-17 14:11 | NUR ---
1400: NGT removed per pt request after verbal order from Dr. Linda Frederick. Pt tolerated well, removed without complications at 1400. 1415: Pt with visitor at bedside. 1415: Dr. Arredondo notified that RAD will be performing bowel study on 03/18. Pt to be strict NPO after 03/17/21 @ 2200 for bowel study.
--- NOTE | 2021-03-17 15:58 | NUR ---
SHIFT SUMMARY NEURO: Anxiety improved s/p administering 2 doses of lorazepam and removal of NGT. RESP: Pt saturation approximately 90% when he removes nasal cannula. No change. Rec'd breathing tx w/ good response. CARDIAC: ST w/o ectopy throughout shift. Temp stable. HTN noted. Rec'd abx. GI: Pt to be strict NPO after 2200 today. Until then may have limited ice chips per Dr. Arredondo and Dr. Linda Frederick. : Adequate UOP from urostomy. Clear, magen colored. MK: OOBTC but only sustained x 30 min before requesting to go back to bed. Integ: No update. Psych/soc: Daughter of pt at bedside; she states concern that discharge planning may not take into account his poor living situation. She requests consultation with palliative care/SW as part of discharge planning.
--- NOTE | 2021-03-17 21:49 | NUR ---
ASSUMED CARE @1900 PATIENT IS ALERT AND ORIENTED X4, CALM AND COOPERATIVE, DAYSHIFT MEDICATED PATIENT FOR ANXIETY TOWARDS THE END OF SHIFT. 02 SATS 92% ON 2L VIA NC, LUNGS SOUNDS WHEEZY T/O, SLIGHTLY COARSE IN UPPER LOBES. TACHYPNIEC BREATHING AT TIMES. HR ST @102. DENIES CP/PRESSURE. ABDOMEN DISTENDED AND FIRM, SOME TENDERNESS WITH PALPATION BUT OTHERWISE PATIENT DENIES PAIN. UROSTOMY DRAINING DARK IVORY URINE. PATIENT ABLE TO REPOSITION SELF IN BED. CALL LIGHT IN REACH. SEE SHIFT ASSESSMENT FOR MORE DETAIL.
[2021-03-18 04:12] LABS: Hematocrit 42.7 % (37.0-53.0); Hemoglobin 13.5 g/dL (13.5-17.5)
[2021-03-18 04:44] LABS: Anion Gap 7 mmol/L (6-16); Blood Urea Nitrogen 33 mg/dL (8-24); CO2, Blood 29 mmol/L (21-32); Calcium, Blood 9.1 mg/dL (8.5-10.1); Chloride, Blood 106 mmol/L (98-108); Creatinine, Blood 0.77 mg/dL (0.60-1.20); Glomerular Filtration Rate >60 (60-); Glucose, Blood 136 mg/dL (70-99); Magnesium, Blood 2.3 mg/dL (1.6-2.4); Sodium, Blood 142 mmol/L (136-145)
--- NOTE | 2021-03-18 06:09 | NUR ---
SHIFT SUMMARY PATIENT ALERT AND ORIENTED X4, DOES COMPLAIN OF SOME CONFUSION UPON WAKING. BECOMES VERY AGITATED WHEN HE IS TOLD HE CANNOT HAVE ANYTHING TO EAT OR DRINK AND IS NPO, STARTS CURSING AND SAYING HE IS LEAVING. REASONS FOR HIM BEING NPO EXPLAINED AND RISKS OF HIM LEAVING EXPLAINED, PATIENT THEN SLEEPS FOR A LITTLE THEN GETS AGITATED AGAIN. SWABS OFFERED FOR DRY MOUTH. MEDICATED FOR WHEEZING AND TACHYPNEA PER EMAR. 02 SATS 89-92% ON 2L VIA NC. LUNGS SOUNDS WHEEZY T/O. HR ST @105. PATIENT DENIES ANY ABDOMINAL PAIN. NO REPORTS OF NAUSEA THROUGH THE SHIFT. UROSTOMY DRAINING. CAP CAME OFF UROSTOMY AND LEAKED IN THE BED, BED LINEN CHANGED. PATIENT ABLE TO TURN AND REPOSITION SELF IN BED. CALL LIGHT IN REACH.
--- NOTE | 2021-03-18 06:53 | NUR ---
CALL OUT TO DR. WOMACK REGARDING PT'S AGGRESSIVE AND ANGRY BEHAVIOR OVER WANTING ICE CHIPS DESPITE HIS NPO STATUS FOR HIS BOWEL STUDY THIS MORNING. PT THREATENING TO LEAVE AMA. WHILE ON THE PHONE WITH DR. WOMACK PT GOT OUT OF BED AND WALKED OVER TO THE SINK TO GRAB A DRINK OF WATER. DR. WOMACK STATED PT COULD HAVE ICE CHIPS PRIOR TO STUDY.
--- NOTE | 2021-03-18 14:36 | NUR ---
UPDATE: Pt requesting to leave AMA; he is asking to have his IVs taken out and is requesting food. exterior work helper was notified. Pt provided AMA paperwork. This RN discussed the risks of leaving which included bowel perforation, peritonitis, and/or . Pt verbalized understanding of risks and states he would still like to leave. He has called a friend for a ride. IVs and supplemental oxygen dc'd. Pt given crackers as requested.
== END 2021-03-18 15:05 | disposition left against medical advice (07) | DRG 698 ==
LOC: ER 22:14 → MEDS 03-14 00:45 → ICUW 03-14 00:45 → ERHOLD 03-14 00:45 → MEDS 03-14 03:46 → ICUW 03-15 01:35
PROVIDERS: Family Medicine; Hospitalist; Student in an Organized Health Care Education/Training Program; Surgery; ADMIT Internal Medicine
DX: T83.518A Infection and inflammatory reaction due to other urinary catheter, initial encounter (principal); J96.21 Acute and chronic respiratory failure with hypoxia; J96.22 Acute and chronic respiratory failure with hypercapnia; J44.1 Chronic obstructive pulmonary disease with (acute) exacerbation; N30.01 Acute cystitis with hematuria; K56.600 Partial intestinal obstruction, unspecified as to cause; N30.91 Cystitis, unspecified with hematuria; K21.9 Gastro-esophageal reflux disease without esophagitis; Z88.5 Allergy status to narcotic agent; N31.9 Neuromuscular dysfunction of bladder, unspecified; Z23 Encounter for immunization; Z88.8 Allergy status to other drugs, medicaments and biological substances; Z91.018 Allergy to other foods; G89.29 Other chronic pain; M54.50 Low back pain, unspecified; Z98.890 Other specified postprocedural states; Z79.899 Other long term (current) drug therapy; F17.210 Nicotine dependence, cigarettes, uncomplicated; I10 Essential (primary) hypertension
CPT/HCPCS: 36415; 36600; 71045; 74018; 74177; 74250; 80048; 80053; 81001; 82803; 82947; 83735; 84145; 85014; 85018; 85025; 85027; 87070; 87077; 87086; 87185; 87205; 90686; 92610; 94640; 94644; 94660; 94762; 99285-25; A9270; C9113; G0008; J0456; J0696; J1650; J2060; J2270; J2405; J2765; J2930; J7030; J7050; Q9967

== ENCOUNTER 2021-05-16 08:50 | Day surgery (SDC) | payer MEDICARE ==
[~2021-05-16] VITALS: Ht 170.2 cm; Wt 61.0 kg
--- NOTE | 2021-05-16 14:16 | NUR ---
DR PALMER TO ROOM DISCUSSING PLAN OF CARE/ WAIT TIME.
--- NOTE | 2021-05-16 17:41 | NUR ---
PT AWAKE AND EATING AT THIS TIME. NEPHROSTOMY SITE STABLE.
--- NOTE | 2021-05-16 18:13 | NUR ---
PT GETTING UP AND DRESSED AT THIS TIME
--- NOTE | 2021-05-16 18:19 | NUR ---
SALINE LOCK REMOVED WITH CATHETER INTACT. DISCHARGE REVIEWED WITH PT, VERBALIZES UNDERSTANDING.
--- NOTE | 2021-05-16 18:31 | NUR ---
PT TO PRIVATE VEHICLE WITH ONE STAFF.
== END 2021-05-16 18:30 | disposition home or self-care (01) ==
LOC: MHTC 08:50
DX: N20.0 Calculus of kidney (principal); J44.9 Chronic obstructive pulmonary disease, unspecified; F17.200 Nicotine dependence, unspecified, uncomplicated; Z88.5 Allergy status to narcotic agent
CPT/HCPCS: 50433; 76937; 87077; 87086; 87186; 99152; 99153; A9270; C1769; C1887; C2625; J2250; J3010; J7030; J7040; Q9967

== ENCOUNTER 2021-05-20 19:12 | Inpatient (IN) | payer MEDICARE ==
[~2021-05-20] VITALS: Ht 172.7 cm; Wt 63.0 kg
[2021-05-20 19:31] LABS: Base Excess Venous -1.8 mmol/L; Bicarbonate Venous 21.1 mmol/L (24.0-30.0); PCO2 Venous 64.2 mmHg (38-42); pH Blood Venous 7.22 (7.34-7.37)
[2021-05-20 19:50] LABS: BASOPHILS ABSOLUTE AUTO 0.03 K/mm3 (0.00-0.23); BASOPHILS PERCENT AUTO 0 % (0-2); EOSINOPHILS ABSOLUTE AUTO 0.16 K/mm3 (0.00-0.68); EOSINOPHILS PERCENT AUTO 1 % (0-6); Hematocrit 45.7 % (37.0-53.0); Hemoglobin 14.7 g/dL (13.5-17.5); IMMATURE GRAN ABSOLUTE AUTO 0.06 K/mm3 (0.00-0.10); IMMATURE GRAN PERCENT AUTO 0 % (0-1); LYMPHOCYTES PERCENT AUTO 24 % (21-46); MONOCYTES ABSOLUTE AUTO 1.54 K/mm3 (0.16-1.47); MONOCYTES PERCENT AUTO 9 % (4-13); Mean Corpuscular HGB 29.6 pg (26.0-34.0); Mean Corpuscular HGB Conc 32.2 g/dL (31.5-36.5); Mean Corpuscular Volume 92 fL (80-100); Mean Platelet Volume 11.2 fL (9.1-12.4); NEUTROPHILS ABSOLUTE AUTO 10.77 K/mm3 (1.96-9.15); NEUTROPHILS PERCENT AUTO 65 % (41-73); Platelet Count 332 K/mm3 (150-400); RDW Coefficient Variation 14.7 % (11.7-14.2); RDW Standard Deviation 49.6 fL (35.1-46.3); Red Blood Cell Count 4.97 M/mm3 (4.30-5.90); White Blood Cell Count 16.56 K/mm3 (4.00-11.30)
[2021-05-20 20:17] LABS: Alanine Aminotransfer (ALT/SGP 27 U/L (12-78); Albumin, Blood 3.2 g/dL (3.4-5.0); Albumin/Globulin Ratio 0.7 (0.8-1.8); Alk Phos 141 U/L (50-136); Anion Gap 8 mmol/L (6-16); Aspartate Aminotrans (AST/SGOT 22 U/L (12-37); Bilirubin, Total 0.2 mg/dL (0.1-1.0); Blood Urea Nitrogen 17 mg/dL (8-24); Bun/Creatinine Ratio 21.3 (12.0-20.0); CO2, Blood 28 mmol/L (21-32); Calcium, Blood 8.9 mg/dL (8.5-10.1); Chloride, Blood 101 mmol/L (98-108); Globulin, Blood 4.9 g/dL (2.2-4.0); Glomerular Filtration Rate >60 (60-); Glucose, Blood 148 mg/dL (70-99); Magnesium, Blood 2.2 mg/dL (1.6-2.4); Sodium, Blood 137 mmol/L (136-145); Total Protein, Blood 8.1 g/dL (6.4-8.2)
[2021-05-20 20:19] LABS: Troponin I <0.015 ng/mL (0.000-0.040)
[2021-05-20 20:28] LABS: Influenza A, PCR NEGATIVE (NEGATIVE); Influenza B, PCR NEGATIVE (NEGATIVE); Resp Syncytial Virus, PCR NEGATIVE (NEGATIVE)
[2021-05-20 21:01] LABS: SARS-Cov-2 (COVID-19) PCR, MMC POSITIVE (NEGATIVE)
[2021-05-21 02:06] LABS: Base Excess Venous 1.6 mmol/L; Bicarbonate Venous 25.6 mmol/L (24.0-30.0); PCO2 Venous 39.3 mmHg (38-42); PO2 Venous 53.4 mmHg (38-42); pH Blood Venous 7.43 (7.34-7.37)
[2021-05-21 02:07] LABS: BASOPHILS ABSOLUTE AUTO 0.01 K/mm3 (0.00-0.23); BASOPHILS PERCENT AUTO 0 % (0-2); EOSINOPHILS PERCENT AUTO 0 % (0-6); Hematocrit 38.1 % (37.0-53.0); Hemoglobin 12.5 g/dL (13.5-17.5); IMMATURE GRAN ABSOLUTE AUTO 0.02 K/mm3 (0.00-0.10); IMMATURE GRAN PERCENT AUTO 0 % (0-1); LYMPHOCYTES ABSOLUTE AUTO 0.41 K/mm3 (0.84-5.20); LYMPHOCYTES PERCENT AUTO 5 % (21-46); MONOCYTES ABSOLUTE AUTO 0.09 K/mm3 (0.16-1.47); MONOCYTES PERCENT AUTO 1 % (4-13); Mean Corpuscular HGB 29.6 pg (26.0-34.0); Mean Corpuscular HGB Conc 32.8 g/dL (31.5-36.5); Mean Corpuscular Volume 90 fL (80-100); Mean Platelet Volume 10.6 fL (9.1-12.4); NEUTROPHILS ABSOLUTE AUTO 8.37 K/mm3 (1.96-9.15); NEUTROPHILS PERCENT AUTO 94 % (41-73); Platelet Count 231 K/mm3 (150-400); RDW Coefficient Variation 14.5 % (11.7-14.2); RDW Standard Deviation 47.8 fL (35.1-46.3); Red Blood Cell Count 4.22 M/mm3 (4.30-5.90)
[2021-05-21 02:26] LABS: Anion Gap 8 mmol/L (6-16); Blood Urea Nitrogen 15 mg/dL (8-24); Bun/Creatinine Ratio 22.3 (12.0-20.0); CO2, Blood 27 mmol/L (21-32); Calcium, Blood 8.2 mg/dL (8.5-10.1); Chloride, Blood 104 mmol/L (98-108); Creatinine, Blood 0.67 mg/dL (0.60-1.20); Glomerular Filtration Rate >60 (60-); Glucose, Blood 193 mg/dL (70-99); Potassium, Blood 3.7 mmol/L (3.5-5.5); Sodium, Blood 139 mmol/L (136-145); Troponin I <0.015 ng/mL (0.000-0.040)
--- NOTE | 2021-05-21 05:30 | NUR ---
SHIFT SUMMARY ADMISSION : PT ALERT UPON INITIAL CADMISSION. ON BIPAP WITH 21% FIO2. SPO2 95% PT IN SR. HTN, SBP 170'S. LUNGS CLEAR/DIM T/O. NEPHROSTOMY AND UROSTOMY IN PLACE. DDIMER NOTED TO BE ELEVATED, ORDERS FOR CT PE STUDY IN AM. LACTIC ACID NOTED TO BE INCREASING, AWAITING NEXT RESULT. PT BECAME EXTREMELY LETHARGIC AND WAS ONLY SHIFTING IN BED. NOT RESPONDING BESIDES GRUNTING TO THIS NURSE. END OF SHIFT: PT NOW ALERT AND ORIENTED AGAIN. OFF BIPAP AND ON RA. LUNG SOUNDS REMAIN THE SAME. VBG PH AND CO2 IMPROVED GREATLY POST BIPAP. PT NOT TOLERATING BIPAP AT ALL NOW. HTN RESOLVED CURRENTLY WITH SBP 130'S. BED ALARM IN PLACE. IN ISOLATION. CALL LIGHT LAYING NEXT TO PATIENT. ALARM IS ON. PT IN ISOLATION.
[2021-05-21] MEDS ORDERED: Azithromycin500 MG PO (15:00)
[2021-05-21] MEDS ORDERED: IPRAT-ALBUT 0.5-3 ML INH (15:01)
[2021-05-21] MEDS ORDERED: NITR100CA PO (15:02)
[2021-05-21] MEDS ORDERED: PROBIOTIC1 EA13 PO (15:02)
--- NOTE | 2021-05-21 16:34 | NUR ---
DISCHARGE SUMMARY PT A&Ox3; IRRIRTABLES AT TIMES. MOSTLY COOPERAIVE WTIH CARE. PT REPORTS PAIN TO ABD, NOTIFIED DR CARLTON, NEW ORDERS FOR ONE TIME DOSE OF NORCO, ADMINISTERED WTIH POSITIVE RESULTS. PT REPORTS SOB AT TIMES, PT APPEARS ANXIOUS WHEN SPEAKING ABOUT FAMILY AND PLANS TO DISCHARGE. SPO2 >92% ON RA T/O SHIFT, REQUESTING BREATHING TREATMENT PER RT. PT DENIES CHEST PAIN, NAUSEA AND DIZZINESS. POWERGLIDE PLACED THIS AM, PULLED PRIOR TO PATIENT LEAVING. OTHER VSS. PT EXPRESSING THE DESIRE TO BE DISCHARGE HOME, HE HAS PROCEDURE LATER THIS WEEK. PT DENIES THAT HE HAS COVID, EDUCATED ON DIAGNOSIS, CONTINUES TO DENY RESULTS. NO OTHER ACUTE CHANGES NOTED. PT EDUCATED ON DISCHARGE INSTRUCTIONS, FOLLOW UP APPOINTMENTS, MEDICATIONS, AND COVID ISOLATION TIME. PRESCRIPTION SENT TO [facility] [address] PER PT REQUEST. PT LEFT ROOM VIA WHEELCHAIR AT APPROX 1610.
== END 2021-05-21 16:10 | disposition home or self-care (01) | DRG 871 ==
LOC: ER 19:12 → PCU 22:18
PROVIDERS: Student in an Organized Health Care Education/Training Program; ADMIT Family Medicine
PROC: 8E0ZXY6 Isolation (ICD-10-PCS; principal; 2021-05-20)
PROC: XW033E5 Introduction of Remdesivir Anti-infective into Peripheral Vein, Percutaneous Approach, New Technology Group 5 (ICD-10-PCS; 2021-05-20)
PROC: 3E0333Z Introduction of Anti-inflammatory into Peripheral Vein, Percutaneous Approach (ICD-10-PCS; 2021-05-21)
DX: A41.89 Other specified sepsis (principal); J96.21 Acute and chronic respiratory failure with hypoxia; U07.1 COVID-19; J96.22 Acute and chronic respiratory failure with hypercapnia; J44.1 Chronic obstructive pulmonary disease with (acute) exacerbation; R65.20 Severe sepsis without septic shock; N31.9 Neuromuscular dysfunction of bladder, unspecified; G89.29 Other chronic pain; I10 Essential (primary) hypertension; K21.9 Gastro-esophageal reflux disease without esophagitis; M54.50 Low back pain, unspecified; F17.210 Nicotine dependence, cigarettes, uncomplicated; Z53.20 Procedure and treatment not carried out because of patient's decision for unspecified reasons; Z71.6 Tobacco abuse counseling; Z88.5 Allergy status to narcotic agent; Z91.018 Allergy to other foods; Q05.9 Spina bifida, unspecified; Z98.890 Other specified postprocedural states; Z93.6 Other artificial openings of urinary tract status; Z99.3 Dependence on wheelchair
CPT/HCPCS: 0241U; 36415; 71045; 80048; 80053; 82803; 83605; 83735; 83880; 84145; 84484; 85025; 85379; 87040; 93005; 93010; 94640; 94644; 94660; 94762; 96365; 96375; 99285-25; A9270; C9399; J0248; J0456; J0694; J0696; J1650; J2930; J3475; J7030; J7050

== ENCOUNTER → 2022-08-20 | Outpatient (CLI) | payer MEDICARE, OTHER ==
[~2022-08-20] MED LIST changes: +AZIT500 PO; +Azithromycin500 MG PO; +BUDESONIDE-FO10.2 G2 INH; +CEFD300 PO; +IPRAT-ALBUT 0.5-3 ML INH; +MONT10T PO; +NITR100CA PO; +Norco 5-325 Ta1 EACH PO; +PROBIOTIC1 EA13 PO
== END | disposition home or self-care (01) ==
LOC: LAB SHORT 14:30 → LAB 14:30
DX: N39.0 Urinary tract infection, site not specified (principal)
CPT/HCPCS: 87086

== ENCOUNTER 2023-03-25 19:05 | Emergency (ER) | payer MEDICARE, OTHER ==
[~2023-03-25] VITALS: Ht 172.7 cm; Wt 63.5 kg
[2023-03-25 19:40] LABS: BASOPHILS ABSOLUTE AUTO 0.02 K/mm3 (0.00-0.23); BASOPHILS PERCENT AUTO 0 % (0-2); EOSINOPHILS ABSOLUTE AUTO 0.06 K/mm3 (0.00-0.68); EOSINOPHILS PERCENT AUTO 1 % (0-6); Hematocrit 42.8 % (37.0-53.0); Hemoglobin 13.6 g/dL (13.5-17.5); IMMATURE GRAN ABSOLUTE AUTO 0.05 K/mm3 (0.00-0.10); IMMATURE GRAN PERCENT AUTO 0 % (0-1); LYMPHOCYTES ABSOLUTE AUTO 3.27 K/mm3 (0.84-5.20); LYMPHOCYTES PERCENT AUTO 27 % (21-46); MONOCYTES ABSOLUTE AUTO 1.15 K/mm3 (0.16-1.47); MONOCYTES PERCENT AUTO 9 % (4-13); Mean Corpuscular HGB 29.1 pg (26.0-34.0); Mean Corpuscular HGB Conc 31.8 g/dL (31.5-36.5); Mean Corpuscular Volume 92 fL (80-100); Mean Platelet Volume 10.9 fL (9.1-12.4); NEUTROPHILS PERCENT AUTO 63 % (41-73); Platelet Count 205 K/mm3 (150-400); RDW Coefficient Variation 14.3 % (11.7-14.2); RDW Standard Deviation 48.2 fL (35.1-46.3); Red Blood Cell Count 4.68 M/mm3 (4.30-5.90); White Blood Cell Count 12.25 K/mm3 (4.00-11.30)
[2023-03-25 20:26] LABS: Influenza A, PCR NEGATIVE (NEGATIVE); Influenza B, PCR NEGATIVE (NEGATIVE); Resp Syncytial Virus, PCR NEGATIVE (NEGATIVE); SARS-Cov-2 (COVID-19) PCR, MMC NEGATIVE (NEGATIVE)
[2023-03-25 21:42] VITALS: BP 139/71
[2023-03-25 22:29] LABS: Albumin/Globulin Ratio 0.8 (0.8-1.8); Bilirubin, Total 0.3 mg/dL (0.1-1.0); Bun/Creatinine Ratio 25.5 (12.0-20.0); Calcium, Blood 8.2 mg/dL (8.5-10.1); Creatinine, Blood 0.79 mg/dL (0.60-1.20); Globulin, Blood 3.9 g/dL (2.2-4.0); Potassium, Blood 3.8 mmol/L (3.5-5.5); Total Protein, Blood 6.9 g/dL (6.4-8.2)
[2023-03-25] MEDS ORDERED: AZIT250 PO (22:43)
[2023-03-25] MEDS ORDERED: PRED20 PO (22:43)
== END 2023-03-25 23:29 | disposition home or self-care (01) ==
LOC: ER 19:05
PROVIDERS: Emergency Medicine; Student in an Organized Health Care Education/Training Program
DX: J44.1 Chronic obstructive pulmonary disease with (acute) exacerbation (principal); Z91.018 Allergy to other foods; Z88.5 Allergy status to narcotic agent; Z79.899 Other long term (current) drug therapy; I10 Essential (primary) hypertension; F17.210 Nicotine dependence, cigarettes, uncomplicated
CPT/HCPCS: 0241U; 71046; 80053; 83880; 84484; 85025; 85379; 93005; 93010; 94640; 94664; 96374; 99285-25; A9270; J2930

== ENCOUNTER 2023-03-27 10:19 | Inpatient (IN) | payer MEDICARE, OTHER ==
[~2023-03-27] VITALS: Ht 172.7 cm; Wt 67.0 kg
[~2023-03-27 10:19] MED LIST changes: +AZIT250 PO
[2023-03-27 11:23] LABS: Base Excess Venous 5.5 mmol/L; Bicarbonate Venous 27.1 mmol/L (24.0-30.0); PCO2 Venous 58.4 mmHg (38-42); pH Blood Venous 7.34 (7.34-7.37)
[2023-03-27 11:25] LABS: BASOPHILS ABSOLUTE AUTO 0.03 K/mm3 (0.00-0.23); BASOPHILS PERCENT AUTO 0 % (0-2); EOSINOPHILS ABSOLUTE AUTO 0.01 K/mm3 (0.00-0.68); EOSINOPHILS PERCENT AUTO 0 % (0-6); Hematocrit 47.4 % (37.0-53.0); Hemoglobin 14.9 g/dL (13.5-17.5); IMMATURE GRAN ABSOLUTE AUTO 0.09 K/mm3 (0.00-0.10); IMMATURE GRAN PERCENT AUTO 1 % (0-1); LYMPHOCYTES ABSOLUTE AUTO 2.21 K/mm3 (0.84-5.20); LYMPHOCYTES PERCENT AUTO 16 % (21-46); MONOCYTES ABSOLUTE AUTO 1.32 K/mm3 (0.16-1.47); MONOCYTES PERCENT AUTO 10 % (4-13); Mean Corpuscular HGB 28.9 pg (26.0-34.0); Mean Corpuscular HGB Conc 31.4 g/dL (31.5-36.5); Mean Corpuscular Volume 92 fL (80-100); Mean Platelet Volume 10.9 fL (9.1-12.4); NEUTROPHILS PERCENT AUTO 74 % (41-73); NRBC ABSOLUTE 0.04 K/mm3 (0.00-0.02); NRBC Auto 0.3 /100 WBC (0.0-0.2); Platelet Count 236 K/mm3 (150-400); RDW Coefficient Variation 14.5 % (11.7-14.2); RDW Standard Deviation 48.5 fL (35.1-46.3); Red Blood Cell Count 5.15 M/mm3 (4.30-5.90); White Blood Cell Count 13.96 K/mm3 (4.00-11.30)
[2023-03-27 11:54] LABS: Albumin, Blood 3.4 g/dL (3.4-5.0); Albumin/Globulin Ratio 0.8 (0.8-1.8); Bilirubin, Total 0.4 mg/dL (0.1-1.0); Bun/Creatinine Ratio 32.6 (12.0-20.0); Calcium, Blood 8.7 mg/dL (8.5-10.1); Creatinine, Blood 0.86 mg/dL (0.60-1.20); Globulin, Blood 4.4 g/dL (2.2-4.0); Potassium, Blood 3.8 mmol/L (3.5-5.5); Total Protein, Blood 7.8 g/dL (6.4-8.2)
[2023-03-27 15:57] VITALS: BP 144/98
--- NOTE | 2023-03-27 18:25 | NUR ---
ER ADMIT Patient admitted for COPD excerbation, sats stable on 2lpm. Wheezing noted t/o lungs, moist productive cough. IV solumedrol adminstred. VSS. Will continue plan of care.
[2023-03-27 19:36] VITALS: BP 142/86
[2023-03-28 04:32] VITALS: BP 161/95
[2023-03-28 05:49] LABS: BASOPHILS ABSOLUTE AUTO 0.01 K/mm3 (0.00-0.23); BASOPHILS PERCENT AUTO 0 % (0-2); EOSINOPHILS PERCENT AUTO 0 % (0-6); Hematocrit 42.6 % (37.0-53.0); Hemoglobin 13.9 g/dL (13.5-17.5); IMMATURE GRAN ABSOLUTE AUTO 0.04 K/mm3 (0.00-0.10); IMMATURE GRAN PERCENT AUTO 0 % (0-1); LYMPHOCYTES ABSOLUTE AUTO 0.97 K/mm3 (0.84-5.20); LYMPHOCYTES PERCENT AUTO 9 % (21-46); MONOCYTES ABSOLUTE AUTO 0.49 K/mm3 (0.16-1.47); MONOCYTES PERCENT AUTO 5 % (4-13); Mean Corpuscular HGB 29.2 pg (26.0-34.0); Mean Corpuscular HGB Conc 32.6 g/dL (31.5-36.5); Mean Corpuscular Volume 90 fL (80-100); Mean Platelet Volume 11.5 fL (9.1-12.4); NEUTROPHILS ABSOLUTE AUTO 9.13 K/mm3 (1.96-9.15); NEUTROPHILS PERCENT AUTO 86 % (41-73); Platelet Count 222 K/mm3 (150-400); RDW Coefficient Variation 14.3 % (11.7-14.2); RDW Standard Deviation 46.6 fL (35.1-46.3); Red Blood Cell Count 4.76 M/mm3 (4.30-5.90); White Blood Cell Count 10.64 K/mm3 (4.00-11.30)
--- NOTE | 2023-03-28 06:18 | NUR ---
SHIFT SUMMARY A/OX4. 3L NC. COUGH. BREATHING TX RT. INDEPENDENT IN ROOM. UROSTOMY BAG LEAKING, REPLACED. HOOKED UP TO DRAINAGE BAG TO ALLOW PATIENT TO SLEEP. ABLE TO MAKE NEEDS KNOWN. CALL LIGHT IN REACH. BED LOCKED IN LOW POSITION.
[2023-03-28 06:23] LABS: Albumin/Globulin Ratio 0.8 (0.8-1.8); Bilirubin, Total 0.4 mg/dL (0.1-1.0); Bun/Creatinine Ratio 31.8 (12.0-20.0); Calcium, Blood 8.8 mg/dL (8.5-10.1); Creatinine, Blood 0.85 mg/dL (0.60-1.20); Potassium, Blood 3.9 mmol/L (3.5-5.5)
[2023-03-28 07:21] VITALS: BP 188/95
[2023-03-28 14:57] VITALS: BP 119/71
--- NOTE | 2023-03-28 16:44 | NUR ---
DAYSHIFT SUMMARY Patient AOX4, reported severe ABD distension, bowel tones hyperactive. Sennosides & miralax given, not effective. MD ordered mineral enema, administred, patient had small pieces of BM. Assessed rectum, scant amount of stool noted. MD ordered ABD XR. Vitals stable, afebrile, sats stable on 3lpm. IV ABX & solumedrol administred. Will continue plan of care.
[2023-03-28 19:38] VITALS: BP 129/78
[2023-03-29 03:09] VITALS: BP 149/72
[2023-03-29 05:27] LABS: BASOPHILS ABSOLUTE AUTO 0.01 K/mm3 (0.00-0.23); BASOPHILS PERCENT AUTO 0 % (0-2); EOSINOPHILS PERCENT AUTO 0 % (0-6); Hematocrit 46.7 % (37.0-53.0); Hemoglobin 15.2 g/dL (13.5-17.5); IMMATURE GRAN ABSOLUTE AUTO 0.09 K/mm3 (0.00-0.10); IMMATURE GRAN PERCENT AUTO 1 % (0-1); LYMPHOCYTES ABSOLUTE AUTO 0.83 K/mm3 (0.84-5.20); LYMPHOCYTES PERCENT AUTO 9 % (21-46); MONOCYTES ABSOLUTE AUTO 0.38 K/mm3 (0.16-1.47); MONOCYTES PERCENT AUTO 4 % (4-13); Mean Corpuscular HGB Conc 32.5 g/dL (31.5-36.5); Mean Corpuscular Volume 89 fL (80-100); Mean Platelet Volume 11.3 fL (9.1-12.4); NEUTROPHILS ABSOLUTE AUTO 8.42 K/mm3 (1.96-9.15); NEUTROPHILS PERCENT AUTO 87 % (41-73); Platelet Count 238 K/mm3 (150-400); RDW Coefficient Variation 14.1 % (11.7-14.2); RDW Standard Deviation 45.6 fL (35.1-46.3); Red Blood Cell Count 5.24 M/mm3 (4.30-5.90); White Blood Cell Count 9.73 K/mm3 (4.00-11.30)
[2023-03-29 06:31] LABS: Bun/Creatinine Ratio 34.6 (12.0-20.0); Creatinine, Blood 0.84 mg/dL (0.60-1.20); Potassium, Blood 4.4 mmol/L (3.5-5.5)
--- NOTE | 2023-03-29 07:19 | NUR ---
SHIFT SUMMARY A/OX4. 3L NC. UROSTOMY RLQ. CONSTIPATED, NO BM FOR 11 DAYS NOW. ABD X-RAY SHOW COLONIC STOOL BURDEN. SCHEDULED BOWEL REGIMEN. NO BM OVERNIGHT. SHIFT OTHERWISE UNREMARKABLE. INDEPENDENT IN ROOM. CALL LIGHT IN REACH, BED LOCKED IN LOW POSITION. ABLE TO MAKE NEEDS KNOWN
[2023-03-29 07:24] VITALS: BP 136/83
[2023-03-29 16:34] VITALS: BP 130/80
--- NOTE | 2023-03-29 18:42 | NUR ---
SHIFT SUMMARY PT AxOx4. COOPERATIVE WITH CARE MOST OF THIS SHIFT. PT DID HAVE SOME MOMENTS OF AGITATION AND SHOUTING AT STAFF TODAY. PT IS INDEPENDENT IN THE ROOM, BUT REPORTED SOB WITH ACTIVITY. HE WAS ASSISTED WITH A SHOWER AND USING THE BSC TODAY. PT IS CONSTIPATED AND ADDITIONAL BOWEL CARE WAS ADDED TODAY. PT WAS ABLE TO HAVE 2 SMALL SOFT BM'S. PT REPORTS HAVING UPSET STOMACH THIS AFTERNOON. PT WAS ENCOURAGED TO GET UP AND MOVE AROUND. THIS RN OFFERED TO STAND BY SO HE COULD WALK THE HALLS, BUT HE DECLINED STATING HE DOESN'T "SEE HOW THAT WOULD HELP." PT WAS EDUCATED ON NON PHARMACEUTICAL INTERVENTIONS FOR CONSTIPATION. HOWEVER, HE OPTED TO STAY IN BED FOR MOST OF THE DAY. PT IS CURRENTLY RESTING IN BED WITH CALL LIGHT IN REACH. DENIES ANY NEEDS AT THIS TIME.
[2023-03-29 19:16] VITALS: BP 134/86
[2023-03-30 02:40] VITALS: BP 145/94
--- NOTE | 2023-03-30 04:23 | NUR ---
SHIST SUMMARY A/OX4. 3L NC. PT REPORTS INCREASED DISCOMFORT, SOB R/T CONSTIPATION. DRILL PRESS OPERATOR HELPER PROVIDER NOTIFIED AND ORDERED LACTULOSE ENEMAS BID. 1 ENEMA COMPLETED AND PT DID HAVE A LARGE BM, WAS TEARFUL/GRATEFUL, FEELS MUCH MORE COMFORTABLE. WAS ABLE TO GET A FEW HOURS SLEEP. STILL LEAKING STOOL, BRIEF ON. ABLE TO MAKE NEEDS KNOWN, CALL LIGHT IN REACH, BED LOCKED IN LOW POSITION.
[2023-03-30 04:52] VITALS: BP 154/78
[2023-03-30 07:24] VITALS: BP 151/90
[2023-03-30] MEDS ORDERED: DILT120 PO (12:28)
[2023-03-30] MEDS ORDERED: AZIT250 PO (12:28)
[2023-03-30] MEDS ORDERED: Acetaminophen650 M1 PO (12:28)
[2023-03-30] MEDS ORDERED: GUAI600T33 PO (12:29)
[2023-03-30] MEDS ORDERED: MIRALAX17 GM PO (12:29)
[2023-03-30] MEDS ORDERED: NAPROXEN250 M1 PO (12:29)
[2023-03-30] MEDS ORDERED: LOSA25 PO (12:29)
[2023-03-30] MEDS ORDERED: PRED20 PO (12:30)
[2023-03-30] MEDS ORDERED: SENNA LAXATIVE8.6 MG PO (12:30)
--- NOTE | 2023-03-30 16:27 | NUR ---
PT DISCHARGED THE PT VERBALIZED UNDERSTANDING OF THE DC INSTRUCTIONS. THE PTS PRESCRIPTIONS WERE FAXED TO [facility] THE PT REQUESTED. PORTABLE OXYGEN WAS ORDERED FOR THE PT TO BE DELIVERED TO HIS ROOM PRIOR TO DC, HOWEVER, THE PT AFTER WAITING FOR APROX 1/2 HR BECAME ANGRY AND SAID HE WAS NOT WAITING ANY LONGER FOR THE OXYGEN AND DEMANDED TO LEAVE. THE PT WAS TRANSFERED VIA WHEELCHAIR TO MEET HIS RIDE AT THE FRONT DOOR WITHOUT OXYGEN
== END 2023-03-30 17:01 | disposition home or self-care (01) | DRG 189 ==
LOC: ER 10:19 → MEDS 10:20
PROVIDERS: Student in an Organized Health Care Education/Training Program; ADMIT Internal Medicine
DX: J96.21 Acute and chronic respiratory failure with hypoxia (principal); J44.0 Chronic obstructive pulmonary disease with (acute) lower respiratory infection; J44.1 Chronic obstructive pulmonary disease with (acute) exacerbation; J20.9 Acute bronchitis, unspecified; K59.00 Constipation, unspecified; N31.9 Neuromuscular dysfunction of bladder, unspecified; K21.9 Gastro-esophageal reflux disease without esophagitis; I10 Essential (primary) hypertension; Q05.9 Spina bifida, unspecified; G89.29 Other chronic pain; M54.50 Low back pain, unspecified; F17.210 Nicotine dependence, cigarettes, uncomplicated; Z88.5 Allergy status to narcotic agent; Z91.018 Allergy to other foods; Z96.0 Presence of urogenital implants
CPT/HCPCS: 36415; 74018; 80048; 80053; 82803; 83880; 84145; 84484; 85025; 93005; 93010; 94640; 94644; 94664; 94760; 96365; 96366; 96367; 96375; 96376; 99285-25; A9270; G0378; J0456; J0696; J1650; J2930; J7050

== ENCOUNTER 2023-04-13 02:19 | Inpatient (IN) | payer MEDICARE, OTHER ==
[~2023-04-13] VITALS: Ht 170.2 cm; Wt 65.4 kg
[~2023-04-13 02:19] MED LIST changes: +Acetaminophen650 M1 PO; +DILT120 PO; +GUAI600T33 PO; +LOSA25 PO; +MIRALAX17 GM PO; +NAPROXEN250 M1 PO; +SENNA LAXATIVE8.6 MG PO
[2023-04-13 02:44] LABS: Base Excess Venous -1.2 mmol/L; Bicarbonate Venous 21.5 mmol/L (24.0-30.0); PCO2 Venous 67.3 mmHg (38-42); PO2 Venous 57.1 mmHg (38-42); pH Blood Venous 7.21 (7.34-7.37)
[2023-04-13 02:47] LABS: Hemoglobin 15.5 g/dL (13.5-17.5); Mean Corpuscular HGB 29.2 pg (26.0-34.0); Mean Corpuscular Volume 94 fL (80-100); Mean Platelet Volume 10.5 fL (9.1-12.4); Platelet Count 297 K/mm3 (150-400); RDW Coefficient Variation 14.5 % (11.7-14.2); RDW Standard Deviation 50.2 fL (35.1-46.3); White Blood Cell Count 24.86 K/mm3 (4.00-11.30)
[2023-04-13] MEDS ORDERED: MONT10T PO (02:51)
[2023-04-13 03:08] LABS: D-Dimer, Quantitative 1.17 mg/L FEU (0.00-0.52); International Normalized Ratio 0.83; Prothrombin Time Results 8.8 Sec (9.7-11.5)
[2023-04-13 03:14] LABS: Albumin, Blood 2.9 g/dL (3.4-5.0); Albumin/Globulin Ratio 0.6 (0.8-1.8); Bilirubin, Total 0.2 mg/dL (0.1-1.0); Bun/Creatinine Ratio 19.6 (12.0-20.0); Calcium, Blood 8.4 mg/dL (8.5-10.1); Creatinine, Blood 0.82 mg/dL (0.60-1.20); Globulin, Blood 4.8 g/dL (2.2-4.0); Magnesium, Blood 2.5 mg/dL (1.6-2.4); Phosphorus, Blood 3.6 mg/dL (2.5-4.9); Potassium, Blood 4.1 mmol/L (3.5-5.5); Thyroid Stimulating Hormone 1.07 uIU/mL (0.360-4.800); Total Protein, Blood 7.7 g/dL (6.4-8.2)
[2023-04-13 03:16] LABS: BAND PERCENT MAN 6 % (0-8); BASOPHILS PERCENT MAN 0 % (0-2); EOSINOPHILS ABSOLUTE MAN 0.24 K/mm3 (0.00-0.68); EOSINOPHILS PERCENT MAN 1 % (0-6); LYMPHOCYTES ABSOLUTE MAN 3.23 K/mm3 (0.84-5.20); LYMPHOCYTES PERCENT MAN 13 % (21-46); MONOCYTES ABSOLUTE MAN 1.24 K/mm3 (0.16-1.47); MONOCYTES PERCENT MAN 5 % (4-13); NEUTROPHILS ABSOLUTE MAN 20.13 K/mm3 (1.96-9.15); SEG NEUTROPHILS PERCENT MAN 75 % (41-73); TOTAL CELLS COUNTED 100
[2023-04-13 04:21] LABS: Influenza A, PCR NEGATIVE (NEGATIVE); Influenza B, PCR NEGATIVE (NEGATIVE); Resp Syncytial Virus, PCR NEGATIVE (NEGATIVE)
[2023-04-13 05:50] LABS: SARS-Cov-2 (COVID-19) PCR, MMC POSITIVE (NEGATIVE)
[2023-04-13 07:49] VITALS: BP 130/80
[2023-04-13 09:02] VITALS: BP 150/81
[2023-04-13 11:46] VITALS: BP 127/72
--- NOTE | 2023-04-13 12:50 | NUR ---
PT GETTING SOB AND TACHYPEANIC RESTING IN BED. I CALLED RT AND HAD THEM SWITCH TO THE BIPAP. THE P HAS BEEN REFUSING THE BIPAP ALL DAY AND HE IS ACCEPTING IT AT THIS TIME. RT IS GIVING A DUENEB DURING THIS VISIT.
[2023-04-13 13:17] LABS: Base Excess Venous -4.1 mmol/L; Bicarbonate Venous 20.2 mmol/L (24.0-30.0); PCO2 Venous 52.9 mmHg (38-42); pH Blood Venous 7.25 (7.34-7.37)
[2023-04-13 15:01] VITALS: BP 129/72
--- NOTE | 2023-04-13 17:44 | NUR ---
SHIFT SUMMARY PT IS A&OX4, CALLS APPROPRAITELY, AND HAS BEEN FAIRLY COOPERATIVE WITH CARE. THIS MORNING HE WAS REFUSING THE BIPAP THEN HE GOT SOB THIS AFTERNOON AND WAS WILLING TO TRY THE BIPAP. HE GETS VERY ANXIOUS AND CLAUSTROPHOBIC, SO I OBTAINED AN ORDER OF 0.5MG ATIVAN Q4P FOR ANXIETY. THE PT WAS ABLE TO WEAR THE BIPAP FOR A FEW HOURS. CURRENT BIPAP SETTINGS ARE 12/8 @ 30%. SP02 HAS REMAINED >93% BUT HIS RESPIRATIONS HAVE VARIED. W/ ACTIVITY AND GETTING SOB HIS RESPIRATIONS CAN VARY FROM 28-40. HE HAS DENIED ANY ANGINA AND ON TELE HE HAS BEEN SR W/ BBB. HE HAS COMPALINED OF SOME UPPER ABDOMAINAL PAIN THAT WORSENS WHEN HE COUGHS OR TAKES A DEEP BREATH. WHEN HE IS ON THE BIPAP HE STATES THAT THE ABD PAIN DECREASES. THE PAIN WORSENS WHEN EXTRA ACCESSORY MUSCLES ARE BEING USED TO BREATHE. PT HAS A UROSTOMY IN THE RLQ THAT NEEDS FRQUENTLY DRAINED, ABOTU Q2. SEE NOTES FOR MORE UPDATES. FIRE IGNITION RISK HAS BEEN ASSESSED AND EDUCATION HAS BEEN PROVIDED.
[2023-04-13 21:14] VITALS: BP 154/94
--- NOTE | 2023-04-13 22:18 | NUR ---
ASSUMPTION OF CARE: PATIENT WAS ON BIPAP AT THE START OF SHIFT WITH INCREASING NAUSEA, STARTED VOMITTING HE REMOVED THE MASK MOMENTS PRIOR, NO ASPIRATION HEARD OR ENDORSED. PATIENT IS ALERT AND ORIENTED X 4 AGITATED WITH ANXIETY. MEDICATED WITH MINIMAL IMPROVEMENT. CUURENLTY RESTING SPO2 >88% ON 4L WHICH WAS UP FROM ORIGNIALLY BE ON 2L AFTER BIPAP REMOVED. PATIENT SEVERELY BLOATED WITH UPPER ABD PAIN, WILL MONITOR. SLIGHLTY HYPERTENSIVE, CONTINUOUS MONITORING IN PLACE. I.E. TELE, PULSE OXIEMTRY. DENIES CHEST PAIN PRESSURE OR SOB. SCD'S IN PLACE. PATINET REFUSED INTERVENTIONS SUCH INCREASING THE HOB. DOES NOT UNDERSTAND BIPAP CANNOT BE WORN WITH ACTIVE VOMITTING. EDUCATED FOR>30 MINUTES, PATIENT REFUSES AND PRETENDS TO BE ASLEEP. WILL CONTINUE TO REINFORCE, COULD NOT GIVE PROBIOTIC AND BOWEL MEDS DUE TO VOMITTING.
[2023-04-14] VITALS (9 sets, daily range): BP systolic 142–169; BP diastolic 73–91
[2023-04-14 04:15] LABS: Base Excess Venous 1.9 mmol/L; Bicarbonate Venous 24.7 mmol/L (24.0-30.0); PCO2 Venous 55.7 mmHg (38-42); pH Blood Venous 7.31 (7.34-7.37)
[2023-04-14 04:31] LABS: BASOPHILS ABSOLUTE AUTO 0.03 K/mm3 (0.00-0.23); BASOPHILS PERCENT AUTO 0 % (0-2); EOSINOPHILS PERCENT AUTO 0 % (0-6); Hematocrit 38.2 % (37.0-53.0); Hemoglobin 12.1 g/dL (13.5-17.5); IMMATURE GRAN ABSOLUTE AUTO 0.15 K/mm3 (0.00-0.10); IMMATURE GRAN PERCENT AUTO 1 % (0-1); LYMPHOCYTES PERCENT AUTO 3 % (21-46); MONOCYTES ABSOLUTE AUTO 0.43 K/mm3 (0.16-1.47); MONOCYTES PERCENT AUTO 2 % (4-13); Mean Corpuscular HGB 28.9 pg (26.0-34.0); Mean Corpuscular HGB Conc 31.7 g/dL (31.5-36.5); Mean Corpuscular Volume 91 fL (80-100); Mean Platelet Volume 11.1 fL (9.1-12.4); NEUTROPHILS ABSOLUTE AUTO 20.17 K/mm3 (1.96-9.15); NEUTROPHILS PERCENT AUTO 94 % (41-73); Platelet Count 170 K/mm3 (150-400); RDW Coefficient Variation 14.8 % (11.7-14.2); RDW Standard Deviation 49.2 fL (35.1-46.3); Red Blood Cell Count 4.19 M/mm3 (4.30-5.90); White Blood Cell Count 21.38 K/mm3 (4.00-11.30)
[2023-04-14 04:50] LABS: Bun/Creatinine Ratio 23.3 (12.0-20.0); Calcium, Blood 7.8 mg/dL (8.5-10.1); Creatinine, Blood 0.82 mg/dL (0.60-1.20); Potassium, Blood 4.2 mmol/L (3.5-5.5)
--- NOTE | 2023-04-14 06:34 | NUR ---
SHIFT SUMMARY ASSUMED CARE OF PT SHORTLY AFTER 0140 THIS AM. A/Ox4 AND MOSTLY COOPERATIVE WITH CARE. CAN BE EASILY AGITATED WITH STAFF WELL SUFFERS FROM FREQUENT EPISODES OF ANXIETY. ANXIETY MANAGED PER EMAR. CARDIAC, REMAINS IN SR-ST 90-110'S WITH NO REPORTS OF CP OR PRESSURE T/O THE NIGHT. SBP REMAINED STABLE RANGING 140'S. RESPIRATORY, MAINTAINS SPO2 90-94% ON 3-4L VIA NC. INCREASED WORK OF BREATHING WITH EPISODES OF ANXIETY AND REFUSES TO WEAR BiPAP UNLESS GIVEN ATIVAN FIRST. WOULD OFTEN STRUGGLE TO SPEAK IN FULL SENTENCES WITHOUT BECOMING SOB. MOIST NON-PRODUCTIVE COUGH NOTED WELL. BARREL CHEST NOTED WITH VERY DIMINISHED LS T/O. GI/, UROSTOMY IN PLACE ON RLQ DRAINING YELLOW-CLEAR URINE TO GRAVITY. NO BM SINCE ASSUMPTION OF CARE. ABD REMAINS VERY DISTENDED WITH PT REPORTING, "I CANT REMEMBER LAST TIME I HAD A BM". ASSESSED PT FOR RISKS OF ANY IGNITION SOURCES WELL BEHAVIORS FOR INCREASED RISKS OF FIRE DANGER. PT EDUCATED ON COMMON SOURCES OF IGNITION WELL NEED TO KEEP A SAFE ENVIRONMENT. PT VOICED UNDERSTANDING. NO NEW ORDERS AT THIS TIME, WILL REPORT TO ONCOMING RN. BRANDI MAXWELL OF THIS NOTE
--- NOTE | 2023-04-14 15:46 | NUR ---
SHIFT SUMMARY: PT HAS BEEN A&Ox4, ANSWERING QUESTIONS APPROPRIATELY, COOPERATIVE W/CARE, C/O FEELING ANXIOUS AND FREQUENTLY REQUESTING PRN MEDICATION, PT MEDICATED PER EMAR. PT REPORTS DAILY DRINKING, 2 DRINKS/DAY, DENIES HEADACHE, HALLUCINATIONS, TACTILE DISTURBANCES, MAIN C/O FEELING TREMULOUS. PT DECLINING TO WEAR BIPAP, O2 SATS >92%, CURRENTLY ON 4 L/MIN NC, RESP LABORED BUT PT ALSO TAKES SHALLOW BREATH THEN TALKS WHILE EXHALING AND IS NOT EASILY REDIRECTED. PT REPORTS COUGH IS BECOMING PRODUCTIVE OF SMALL AMOUNT ISABEL/YELLOW SPUTUM. PT DENIES CP, SR/ST ON MONITOR W/RATE MOSTLY 90s-100s. ABDOMEN DISTENDED, FIRM, PAINFUL ACROSS THE TOP. PT UNSURE OF LAST BM, STATES IT IS NORMAL FOR HIM TO GO DAYS W/OUT A BM BUT IT SEEMS LIKE IT HAS BEEN A LONG TIME. PT HAVING EPISODES OF EMESIS THIS SHIFT DESPITE PRN MEDICATIONS, PROVIDER NOTIFIED, ADDITIONAL TESTING ORDERED AND AWAITING RESULTS. UROSTOMY PATENT, DRAINING YELLOW COLORED URINE TO GRAVITY. WILL CONTINUE TO MONITOR AND TREAT ACCORDINGLY UNTIL CHANGE OF SHIFT.
--- NOTE | 2023-04-14 18:36 | NUR ---
UPDATE: RESULTS CAME BACK FROM PT's ABD CT. NEW ORDERS PLACED FOR PT TO BE NPO AND FOR NG TUBE PLACEMENT. WHEN INFORMED ABOUT RESULTS AND PLAN, PT BECOMES ANGRY AND REFUSES NG TUBE PLACEMENT. EDUCATION PROVIDED ABOUT REASON FOR NEW ORDERS AND HOW THE TUBE WILL HELP WITH OVERALL SYMPTOMS. PT CONTINUES TO DECLINE AND STATES "YOU GUYS NEED TO FIX THIS". THIS RN HAS A CONVERSATION W/PT ABOUT HOW THIS IS THE FIRST STEP TO "FIX THIS" AND REVIEWED THE STEPS TAKEN T/OUT THE DAY TO GET TO THIS POINT. PT CONTINUES TO DECLINE TUBE PLACEMENT AND TALKS ABOUT CALLING HIS FAMILY TO GET HIM "OUT OF HERE". PT AGREEABLE TO PRESCRIBED MEDICATIONS, PT MEDICATED PER EMAR.
[2023-04-15 04:39] VITALS: BP 147/67
[2023-04-15 04:58] LABS: BASOPHILS ABSOLUTE AUTO 0.01 K/mm3 (0.00-0.23); BASOPHILS PERCENT AUTO 0 % (0-2); EOSINOPHILS PERCENT AUTO 0 % (0-6); Hematocrit 37.6 % (37.0-53.0); IMMATURE GRAN ABSOLUTE AUTO 0.07 K/mm3 (0.00-0.10); IMMATURE GRAN PERCENT AUTO 0 % (0-1); LYMPHOCYTES ABSOLUTE AUTO 0.52 K/mm3 (0.84-5.20); LYMPHOCYTES PERCENT AUTO 3 % (21-46); MONOCYTES ABSOLUTE AUTO 0.43 K/mm3 (0.16-1.47); MONOCYTES PERCENT AUTO 3 % (4-13); Mean Corpuscular HGB 29.1 pg (26.0-34.0); Mean Corpuscular HGB Conc 31.9 g/dL (31.5-36.5); Mean Corpuscular Volume 91 fL (80-100); Mean Platelet Volume 10.6 fL (9.1-12.4); NEUTROPHILS ABSOLUTE AUTO 15.94 K/mm3 (1.96-9.15); NEUTROPHILS PERCENT AUTO 94 % (41-73); Platelet Count 186 K/mm3 (150-400); RDW Standard Deviation 49.8 fL (35.1-46.3); Red Blood Cell Count 4.13 M/mm3 (4.30-5.90); White Blood Cell Count 16.97 K/mm3 (4.00-11.30)
[2023-04-15 05:21] LABS: Albumin, Blood 2.4 g/dL (3.4-5.0); Albumin/Globulin Ratio 0.6 (0.8-1.8); Bilirubin, Total 0.2 mg/dL (0.1-1.0); Bun/Creatinine Ratio 36.3 (12.0-20.0); Calcium, Blood 7.9 mg/dL (8.5-10.1); Creatinine, Blood 0.83 mg/dL (0.60-1.20); Globulin, Blood 3.9 g/dL (2.2-4.0); Magnesium, Blood 2.4 mg/dL (1.6-2.4); Potassium, Blood 3.7 mmol/L (3.5-5.5); Total Protein, Blood 6.3 g/dL (6.4-8.2)
--- NOTE | 2023-04-15 05:37 | NUR ---
SHIFT SUMMARY A/O3-4, BUT TRAIN OF THOUGHT IS OFTEN SPORADIC AND TENDS TO JUMP BETWEEN DIFFERENT SUBJECTS. PT IS EASILY AGITATED WITH STAFF TENDING TO YELL OUT/CURSE AT STAFF OR SMASH HIS CALL LIGHT INTO THE BEDRAIL. WOULD OFTEN SAY "IM GOING TO BREAK THIS SHIT!" OR WHEN REFERRING TO STAFF "YOU ARE ALL USELESS AND ARE POOR EXCUSES FOR NURSES!". PT EDUCATED ON MULTIPLE OCCASIONS ABOUT APPROPRIATE COMMUNICATION WITH STAFF AND PT INFORMED ON ALL CARE PROVIDED TO HIM. CIWAS PERFORMED T/O THE NIGHT WITH SCORE RANGING FROM 4-10. PT MEDICATED FOR WITHDRAW PER EMAR. CARDIAC, REMAINS IN SR-ST 90-110'S WITH NO REPORTS OF CP OR PRESSURE T/O THE NIGHT. SBP ELEVATED RANGING 140-150'S. RESPIRATORY, MAINTAINS SPO2 90-94% ON 3-4L VIA NC. INCREASED WORK OF BREATHING NOTED WITH MINIMAL EXERTION AND WOULD OFTEN HAVE A HARD TIME FINISHING FULL SENTENCES WITHOUT BECOMING SOB. GI/, UROSTOMY IN PLACE ON RLQ DRINAING YELLOW/CLEAR URINE. PT HAD TWO SMALL HARD BM'S LAST NIGHT. ABD CONTINUES TO BE VERY DISTENDED AND TENDER TO THE TOUCH. ASSESSED PT FOR RISKS OF ANY IGNITION SOURCES WELL BEHAVIORS FOR INCREASED RISKS OF FIRE DANGER. PT EDUCATED ON COMMON SOURCES OF IGNITION WELL NEED TO KEEP A SAFE ENVIRONMENT. PT VOICED UNDERSTANDING. NO NEW ORDERS AT THIS TIME, WILL REPORT TO ONCOMING RN. BRANDI MAXWELL OF THIS NOTE
[2023-04-15 07:37] VITALS: BP 121/72
[2023-04-15 08:06] VITALS: BP 163/93
[2023-04-15 12:00] VITALS: BP 187/86
--- NOTE | 2023-04-15 14:27 | NUR ---
UPDATE PT CURRENTLY RESTING IN THE SUPINE POSITION. NO ACUTE DISTRESS AT THIS TIME. NG TUBE PATENT AND CONNECTED TO LOW INTERMITENT SUCTION PER ORDERS, RED/GREEN DRAINAGE. NO TREMORS NOTED AT THIS TIME. BED IN LOWEST POSITION, CALL LIGHT WITHIN REACH.
[2023-04-15 17:07] VITALS: BP 174/103
--- NOTE | 2023-04-15 18:12 | NUR ---
UPDATE PT BECAME ANXOIUS AND WAS STATING "I AM HAVING A WITHDRAWAL. I NEED A BEER." THIS RN INFORMED PT THAT A BEER WOULD NOT HELP THE PT CURRENTLY HAS AN NG TUBE WITH SUCTION. PT INFORMED THAT HE CAN RECIEVE SOME ATIVAN FOR HIS ANXIETY, PT AGREED. CIWA PERFORMED, PT SCORED A 12. THIS RN WAS ENTERING PT ROOM WITH MED, PT WAS PULLING ON NG TUBE ASKING "HOW LONG IS THIS THING GOING TO BE HERE?" PT INSTRUCTED NOT TO PULL AT NG TUBE, PT COOPERATIVE. ATIVAN GIVEN PER ORDER. PT SBP ELEVATED, NOTIFIED. HYDRALIZINE ORDERED, SEE EMAR.
--- NOTE | 2023-04-15 18:17 | NUR ---
SHIFT SUMMARY PT A/OX3-4. PT PLEASANT FORM MAJORITY OF SHIFT. PT BECAME ANXIOUS TOWARDS END OF SHIFT, TREATED PER CIWA PROTOCOL. PT SBP ELEVATED DUING SHIFT, PT UNABLE TO TAKE MORNING DILTIZEM DUE TO BEING NPO AND LETHARGIC FROM ATIVAN. OTHER VSS THROUGHOUT SHIFT WITH O2 SATS IN THE 90'S ON RA. NO REPORT OF CHEST PAIN/PRESSURE THROUGHOUT SHIFT. NO REPORT OF SOB/DYSPNEA THROUGHOUT SHIFT. NG TUBE PLACED PER ORDERS, LOW INTERMITENT SUCTION. NG DRAINED GREENISH/MAROON CONTENTS. CANISTER CHANGED AFTER 700 OUTPUT FROM NG TUBE. IV ATIVAN GIVEN PER ORDERS PER CIWA PROTOCOL. UROSTOMY CONTINUES TO DRAIN YELLOW CONTENT. PRN HYDRALIZINE ORDERED FOR SBP>165.
--- NOTE | 2023-04-15 18:51 | NUR ---
UPDATE PT HEARD YELLING "I NEED WATER!" THIS RN ENTERED PT ROOM AND PROVIDED A SMALL CUP OF WATER. PT INSTRUCTED TO TAKE VERY SMALL SIPS.
[2023-04-15 20:06] VITALS: BP 184/95
[2023-04-16] VITALS (12 sets, daily range): BP systolic 125–214; BP diastolic 83–128
[2023-04-16 05:31] LABS: BASOPHILS ABSOLUTE AUTO 0.01 K/mm3 (0.00-0.23); BASOPHILS PERCENT AUTO 0 % (0-2); EOSINOPHILS PERCENT AUTO 0 % (0-6); Hematocrit 39.1 % (37.0-53.0); Hemoglobin 12.6 g/dL (13.5-17.5); IMMATURE GRAN ABSOLUTE AUTO 0.11 K/mm3 (0.00-0.10); IMMATURE GRAN PERCENT AUTO 1 % (0-1); LYMPHOCYTES ABSOLUTE AUTO 0.33 K/mm3 (0.84-5.20); LYMPHOCYTES PERCENT AUTO 2 % (21-46); MONOCYTES ABSOLUTE AUTO 0.28 K/mm3 (0.16-1.47); MONOCYTES PERCENT AUTO 2 % (4-13); Mean Corpuscular HGB 29.2 pg (26.0-34.0); Mean Corpuscular HGB Conc 32.2 g/dL (31.5-36.5); Mean Corpuscular Volume 91 fL (80-100); Mean Platelet Volume 10.7 fL (9.1-12.4); NEUTROPHILS ABSOLUTE AUTO 12.89 K/mm3 (1.96-9.15); NEUTROPHILS PERCENT AUTO 95 % (41-73); Platelet Count 167 K/mm3 (150-400); RDW Standard Deviation 49.1 fL (35.1-46.3); Red Blood Cell Count 4.32 M/mm3 (4.30-5.90); White Blood Cell Count 13.62 K/mm3 (4.00-11.30)
[2023-04-16 05:56] LABS: Bun/Creatinine Ratio 36.3 (12.0-20.0); Calcium, Blood 8.1 mg/dL (8.5-10.1); Creatinine, Blood 0.8 mg/dL (0.60-1.20); Potassium, Blood 3.3 mmol/L (3.5-5.5)
--- NOTE | 2023-04-16 06:27 | NUR ---
SHIFT SUMMARY PT PROVES TO BE QUITE DIFFICULT BEHAVIORALY. WHTHER IT BE CIWA RELATED OR BASELINE BEHAVIORAL IS UNDETERMINNED BUT PT OFTEN IS FULLY AXO AND STILL ACTS OUT. STARTED SHIFT WITH NGT TO LIS WITH LARGE AMOUNT OF BOWEL COLORED OUTPUT, PT PULLED THIS AROUND 0500 AND IS REFUSING IT TO BE REPLACED DESPITE MUCH EDUCATION FROM THIS RN. PT'S UROSTOMY BAG HAS BEEN REPLACED 4X'S THIS SHIFT DUE TO LEAKING ISSUES. CURRENTLY PATENT AND SEALED. PT REMAINS ON 2-3LNC, SPO2 >94%. PT DRINKS LARGE AMOUNTS OF WATER DESPITE EDUCATION. PT CONTINUALLY CALLING OUT, YELLING, BANGING CALL LIGHT ON BED WHEN STAFF DON'T COME TO ROOM "FAST ENOUGH", FOR SIMPLE THINGS LIKE PULLING BLANKETS UP OVER SHOULDERS. PT HEAVILY EDUCATED AGAINST THIS BEHAVIOR. CIWAS DO PRESENT TO WHERE PT REQUIRES ATIVAN BUT THESE SCORES ARE HEAVILY INFLUENCED BY ANXIETY/AGITATION. ATIVAN EFFECTIVE AT DROPPING ANXIETY LEVELS. VSS STABLE WITH THESE PRN DOSES. POWERGLIDES PATENT, FLUIDS INFUSING. 0530- PT YELLING ABOUT WANTING TO LEAVE. THIS RN TOLD PATIENT IF HE WANTS TO LEAVE HE NEEDS TO CALL FOR A RIDE, PT STATES NO ONE WOULD COME AND GET HIM. PT IMPULSIVE BUT HAS NOT SHOWN THQAT HES WILLING TO TRY AND GET OUT OF BED. BED ALARM REMAINS ON HOWEVER. REMAINS IN ISOLATION. SEVERE HTN AT TIMES, MEDS PER EMAR. OTHERWISE, PT RESTING OFF AND ON POST CIWA DOSE ADMINISTRATIONS.
--- NOTE | 2023-04-16 07:34 | NUR ---
THIS RN ASSUMED CARE OF PT AT 0700. PT CURRENTLY RESTING AND WILL BRIEFLY OPEN EYES WHEN BEING TALKED TO. PT RECIEVED ATIVAN FROM NOC RN FOR AGITATION, SEE EMAR FOR DOSAGE TIMES. PT RECIEVING BREATHING TREATMENT FROM RT AT THIS TIME. EXPITORY WHEEZES NOTED. PT ABD DISTENDED, PT UNBLE TO EXPRESS DISCOMFORT AT THIS TIME. ELEVATED SBP AT 165. PT USING ACCESSORY MUSCLES FOR BREATHING WHICH IS A CHANGE FROM YESTERDAY. WHEN AWAKE, PT BRIEFLY STATED THAT HIS ABD FELT "A LITTLE BETTER TODAY" AND THEN ASKED WHEN HE "GETS TO GET OUT OF HERE." THIS RN ATTEMPTED TO TO EDUCATE PT AND SBO AND THE NEED FOR NGT, PT BEGAN TO SLEEP WHILE THIS RN WAS TALKING TO HIM.
[2023-04-16 09:44] LABS: Bicarbonate Venous 29.9 mmol/L (24.0-30.0); PCO2 Venous 43.7 mmHg (38-42); pH Blood Venous 7.46 (7.34-7.37)
--- NOTE | 2023-04-16 11:15 | NUR ---
Spiritual care visit conducted. Patient is lying in bed and alert. He is restless in his bed and speaks loudly and is terse. He explains about his frustrations about how awful he feels and how much he wants to leave the hospital. I ask him what might help and he states that he wants to talk to his dtr. I assist him with his ipad and connect the call to her but unfortunately, she does not answer the phone. He then asks if we could try calling her on the hospital room phone. We call and she does not answer. Patient's Rn then is needed to meet a need the patient has and so I will continue to remain available to the patient.
--- NOTE | 2023-04-16 11:30 | NUR ---
UPDATE PT EXTREMELY ANXIOUS IN ROOM. PT CONTINUOUSLY ASKING "WHEN DO I GET OUT OF HERE?" PT EDUCATED ON HIS CONDITION. PT STATED "I NEED SOMEONE IN HERE. I LONELY. I NEED ANYONE IN HERE, LIKE MY BROTHER." THIS RN OFFERED TO SIT WITH PT. PT REQUESTED THIS RN TO CONTACT HIS BROTHER. THIS RN ATTEMPTED TO CALL BROTHER, NO ANSWER. THIS RN CONTACTED PT DAUGHTER AND INFORMED HER THAT PT WAS ASKING TO HAVE SOMEONE TO TALK TO. PT DAUGHTER EXPRESSED CONCERN OF VISITING D/T PT BEING COVID POSITIVE AND THAT DAUGHTER HAS PLANS TO GO TO [facility] NEXT WEEK. THIS RN INFORMED DAUGHTER THAT PT HAS HIS IPAD IN ROOM AND SHE STATED THAT SHE WOULD CALL. WATER WELL DRILLER ASSISTED PT TO ANSWER CALL. PT LATER STATED THAT HE HAS NOT TALKED TO HIS DAUGHTER. PT HAS CONTINUOUSLY YELLED OUT UNTIL STAFF ENTERS DOORWAY TO SEE WHAT PT NEEDS. PT REQUESTED ICE CHIPS. PT INSTRUCTED TO USE ALL LIGHT. PT YELLED "I CANNOT FIND IT." CALL LIGHT SIITTING NEXT TO PT RIGHT HAND IN BED, PT INFORMED WHERE CALL LIGHT WAS. PT STILL YELLING OUT, EXPRESSING ANXIETY.
--- NOTE | 2023-04-16 12:32 | NUR ---
DURING AFTERNOON VITALS AND MED PASS, PT STILL CONTINUES TO ASK "WHEN DO I GET TO GET OUT OF HERE?" PT INFORMED OF MD UPDATE AND ORDER OF MILK OF MAG AND A FLEET ENEMA THAT HAS BEEN ORDERED. PT ABLE TO DRINK MOM WITH NO DIFFICULTY. PT TEATED WITH ATIVAN FOR HIS CIWA SCORE OF 11, SEE EMAR.
--- NOTE | 2023-04-16 15:17 | NUR ---
ROUGHLY 1430, PT ACTIVELY BEGAN COMPLAINING OF SEVERE ABD PAIN AND BEGAN TO VOMIT CLEAR LIQUID. PT INFORMED THAT THE ICE CHIPS THAT HE HAS BEEN EATING ARE CAUSING HIS DISCOMFORT D/T THE SBO. PT ASKED WHAT CAN BE DONE. PT INFORMED THAT THE NG TUBE THAT HE PULLED BEFORE SHIFT CHANGE WOULD RELIEVE THE PRESSURE. PT STATED "I DON'T KNOW WHAT THAT IS." PT EDUCATED ON THE NG TUBE AND THE PLACEMENT PROCESS. PT AGREED STATING "ANYTHING TO STOP THE PAIN." NG TUBE PLACED WITH NO ISSUES. CLEAR LIQUID DRAINED INSTANTLY. LOW INTERMITENT SUCTION APPLIED PER ORDER. NOTIFIED AND UPDATED.
--- NOTE | 2023-04-16 17:38 | NUR ---
SHIFT SUMMARY PT ALERT FOR MOST OF SHIFT FREQUENTLY YELLING OUT FOR STAFF. PT REQUIRING EDUCATION ON SBO SITUATION AND ENCOURAGED OF NG TUBE PLACEMENT AGAIN TODAY. PT REFUSED FOR MOST OF SHIFT. PT FINAALY AGREED TO NG TUBE PLACEMENT AFTR SEVERE ABD PAIN AND DISTENTION THAT LED TO VOMITTING. PT AGAIN ENCOURAGED TO HAVE NG TUBE PLACED TO HELP RELIEVE PRESSURE OF ABD, PT FINALLY AGREED. NG PLACED IN R NARE, NO ISSUES. IMMEDIATE CLEAR DRAINAGE FLUSHED OUT, CONNECTED TO SUCTION PER ORDER. ALMOST INSTANT RELIEF FROM NOTED PT ABLE TO REST. PT HAD HIGH ANXIETY THROUGHOUT SHIFT, TREATING PER EMAR PER PROTOCOL. PT BEACME CONFUSED MOMENT BEFORE NG TUBE PLACEMENT D/T PAIN AND DISCOMFORT, NOT RECALLING WHAT A NG TUBE WAS. PT EXPRESSED ANXIETY FROM ISOLATION, REQUESTED TO HAVE FAMILY COME TO VISIT. PT BROTHER ATTEMPTED TO BE ALLED, NO ANSWER. PT DAUGHTER CONTACTED AND VIDEO CALLED PT, PT STATES HE DOES NOT REMEMBER DAUGHTER CALLING. PT BROTHER CAME TO VISIT AT TIME OF NG TUBE BEING PLACED, LEFT DURING PLACEMNT OF TUBE AND CAME BACK LATER TO SIT WITH PT. PT HYPERTENSIVE T/O SHIFT REQUIRING HYDRALIZINE FOR TREATMENT. NO REPORT OF CHEST PAIN/PRESSURE. PT USING ACCESSORY MUSCLES TO BREATH TODAY WHICH IS A CHANGE FROM YESTERDAY, MD AWARE.
--- NOTE | 2023-04-16 18:47 | NUR ---
UPDATE PT HEARD YELLING OUT FOR STAFF. THIS RN ENTERED ROOM TO ASK WHAT PT NEEDED. PT STATED "WATER. I NEED WATER." PT INFORMED THAT HE HAS A NG TUBE PLACED DUE TO HIS STOMACH BECOMING DISTENDED AND PAINFUL FROM BACKING UP. PT STATED "I DON'T CARE I WANT WATER. I WILL JSUT GET UP AND GET IT MYSLEF." PT INSTRUCTED NOT TO GET UP D/T WEAKNESS AND ALTERED STATUS. THIS RN INFORMED PT THAT HE CANNOT JUST YELL OUT AND THAT HE NEEDS TO USE THE CALL LIGHT. PT RESPONDS "I DON'T KNOW WHERE IT IS." THIS RN ASSISTED PT FIND CALL LIGHT WHICH WAS ACROSS HIS LAP.
[2023-04-17] VITALS (14 sets, daily range): BP systolic 141–200; BP diastolic 85–115
[2023-04-17 03:31] LABS: BASOPHILS ABSOLUTE AUTO 0.01 K/mm3 (0.00-0.23); BASOPHILS PERCENT AUTO 0 % (0-2); EOSINOPHILS PERCENT AUTO 0 % (0-6); Hematocrit 39.7 % (37.0-53.0); Hemoglobin 12.8 g/dL (13.5-17.5); IMMATURE GRAN ABSOLUTE AUTO 0.13 K/mm3 (0.00-0.10); IMMATURE GRAN PERCENT AUTO 1 % (0-1); LYMPHOCYTES ABSOLUTE AUTO 0.21 K/mm3 (0.84-5.20); LYMPHOCYTES PERCENT AUTO 2 % (21-46); MONOCYTES ABSOLUTE AUTO 0.34 K/mm3 (0.16-1.47); MONOCYTES PERCENT AUTO 3 % (4-13); Mean Corpuscular HGB 29.4 pg (26.0-34.0); Mean Corpuscular HGB Conc 32.2 g/dL (31.5-36.5); Mean Corpuscular Volume 91 fL (80-100); Mean Platelet Volume 10.6 fL (9.1-12.4); NEUTROPHILS ABSOLUTE AUTO 12.96 K/mm3 (1.96-9.15); NEUTROPHILS PERCENT AUTO 95 % (41-73); Platelet Count 191 K/mm3 (150-400); RDW Coefficient Variation 15.2 % (11.7-14.2); RDW Standard Deviation 50.4 fL (35.1-46.3); Red Blood Cell Count 4.35 M/mm3 (4.30-5.90); White Blood Cell Count 13.65 K/mm3 (4.00-11.30)
[2023-04-17 03:48] LABS: Albumin, Blood 2.4 g/dL (3.4-5.0); Anion Gap 3 mmol/L (6-16); Blood Urea Nitrogen 34 mg/dL (8-24); Bun/Creatinine Ratio 44.3 (12.0-20.0); CO2, Blood 34 mmol/L (21-32); Calcium, Blood 7.7 mg/dL (8.5-10.1); Chloride, Blood 110 mmol/L (98-108); Creatinine, Blood 0.77 mg/dL (0.60-1.20); Glomerular Filtration Rate 99 (60-); Glucose, Blood 191 mg/dL (70-99); Phosphorus, Blood 2.6 mg/dL (2.5-4.9); Potassium, Blood 3.4 mmol/L (3.5-5.5); Sodium, Blood 147 mmol/L (136-145)
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
[2023-04-17 06:23] LABS: Magnesium, Blood 2.9 mg/dL (1.6-2.4)
--- NOTE | 2023-04-17 09:52 | NUR ---
Spiritual Care | M&D Referral Pt. is awake in bed, in restraints and is presently agitated. Pt. displays evidence of Withdrawls, and verbalizes that he wants me "to get off his foot." While the Pt. is only in wrist restraints, he displays evidence of confusion to his own orientation. Listened with empathy and a calming presence, and the Pts. agitation did momentarily de-escalate when he finally heard that I could not help him with his retraints because I was a business development director. Pt. declined any further spiritual care. It did not seem that Pt. was able to process his behavior. De-briefed with Pts. nurse.
--- NOTE | 2023-04-17 14:12 | NUR ---
ASSUMED CARE OF PT AT 0700 THIS AM. PT IS IN BILATERAL SOFT RESTRAINTS AND IS TOO CONFUSED AND COMBATIVE TO HAVE THEM REMOVED. INITIAL CIWA SCORE THIS AM IS 28, PT MEDICATED PER EMAR T/O THE MORNING WITH WHAT APPEARED TO BE GOOD EFFECT, PT WAS RESTING WITH EYES CLOSED, RESPS EVEN. APROX 2 HRS AFTER LAST DOSE, PT STARTED TO BECOME AGGITATED ONCE AGAIN AND PT WAS MEDICATED PER CIWA FOR A MAX DOSE OF 24MG/24HRS. DR BEST NOTIFIED AND CAME TO SEE PT. ORDERS RECEIVED TO TRANSFER PT TO ICU FOR PRECIDEX GTT.
--- NOTE | 2023-04-17 18:42 | NUR ---
SUMMARY Assumed care of pt on arrival to ICU 5 from PCU 2 at 1455. Telephone report received from Chinyere ENRIQUEZ prior to arrival. Transferred from bed to bed using slider sheet and 4 staff. Pt arrived on 3 LPM NC which is his reported baseline and remains on this amount of oxygen for SpO2 90% or greater. On arrival, pt was drowsy. Awoke with gentle verbal stimulus and was cooperative with care. He fell back asleep and the next time he awoke, he was quite agitated, yelling out profanities and was not verbally redirectable. He was pulling at bilat wrist restraints yelling to be untied and was not receptive to education about saftey reasons that restraints are being used. Precedex incrementally increased up to 0.7 mcg/kg/min and a dose of 4 mg ativan was used to manage agitation. Currently, pt is sleeping and awakens to be calm and cooperative with gentle verbal stimulus. When awake, speech is very garbled and slurred, subsequently hard to comprehend. When asked his name, it is unclear if he is saying "Hugo Angus". Vocal quality is wet. Pt coughs when instructed to do so, but does not clear secreations. SpO2 90% or greater with [address] per monitor, rate 115-120. Hypertensive. Hydralyzine given. Family updated on ICU transfer.
[2023-04-18] VITALS (39 sets, daily range): BP systolic 147–181; BP diastolic 87–116
[2023-04-18 04:39] LABS: BASOPHILS ABSOLUTE AUTO 0.02 K/mm3 (0.00-0.23); BASOPHILS PERCENT AUTO 0 % (0-2); EOSINOPHILS PERCENT AUTO 0 % (0-6); Hematocrit 42.8 % (37.0-53.0); Hemoglobin 13.3 g/dL (13.5-17.5); IMMATURE GRAN ABSOLUTE AUTO 0.08 K/mm3 (0.00-0.10); IMMATURE GRAN PERCENT AUTO 1 % (0-1); LYMPHOCYTES ABSOLUTE AUTO 0.33 K/mm3 (0.84-5.20); LYMPHOCYTES PERCENT AUTO 3 % (21-46); MONOCYTES ABSOLUTE AUTO 0.45 K/mm3 (0.16-1.47); MONOCYTES PERCENT AUTO 4 % (4-13); Mean Corpuscular HGB Conc 31.1 g/dL (31.5-36.5); Mean Corpuscular Volume 93 fL (80-100); Mean Platelet Volume 10.7 fL (9.1-12.4); NEUTROPHILS ABSOLUTE AUTO 11.92 K/mm3 (1.96-9.15); NEUTROPHILS PERCENT AUTO 93 % (41-73); Platelet Count 207 K/mm3 (150-400); RDW Coefficient Variation 15.3 % (11.7-14.2); Red Blood Cell Count 4.59 M/mm3 (4.30-5.90)
[2023-04-18 04:55] LABS: Bun/Creatinine Ratio 50.3 (12.0-20.0); Calcium, Blood 7.7 mg/dL (8.5-10.1); Creatinine, Blood 0.84 mg/dL (0.60-1.20); Potassium, Blood 3.7 mmol/L (3.5-5.5)
--- NOTE | 2023-04-18 09:23 | NUR ---
AM NOTE... ASSUMED CARE OF PT AT 0700 PT IS ON PRECEDEX DRIP RUNNING AT 1.4MCG/KG/HR THIS WAS TITRATED DOWN TO 1.2MCG/KG/HR. PT IS UNCOOPERATIVE WITH CARE, YELLING AT ATTEMPTING TO SWING HIS ARMS AT STAFF, HE IS CURRENTLY IN SOFT WRIST RESTRAINTS, PT ALSO ATTEMPTING TO SWING/KICK LEGS AT STAFF. LR IS RUNNING AT 100MLS/HR. HE IS ON 2-3L NC WHICH IS HIS BASELINE PER NOC SHIFT RN REPORT. L/S COARSE RHONCHI T/O DIM IN THE BASES. HE IS IN SR IN THE 80'S BP IS HYPERTENSIVE WITH SBPs 150'S-160'S. 2+ EDEMA IS NOTED TO HIS BUE. NEPHROSTOMY TO HIS RLQ. NG TUBE IS SET TO LIS. AT 0845 WAS AT THE BEDSIDE TO ASSESS THE PT. ORDERS GIVEN TO CLAMP NG TUBE AT THIS TIME. WILL CONTINUE TO MONITOR
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
[2023-04-19] VITALS (26 sets, daily range): BP systolic 138–188; BP diastolic 87–119
[2023-04-19 05:36] LABS: BASOPHILS PERCENT AUTO 0 % (0-2); EOSINOPHILS PERCENT AUTO 0 % (0-6); Hematocrit 41.5 % (37.0-53.0); Hemoglobin 13.3 g/dL (13.5-17.5); IMMATURE GRAN ABSOLUTE AUTO 0.03 K/mm3 (0.00-0.10); IMMATURE GRAN PERCENT AUTO 0 % (0-1); LYMPHOCYTES ABSOLUTE AUTO 0.23 K/mm3 (0.84-5.20); LYMPHOCYTES PERCENT AUTO 3 % (21-46); MONOCYTES ABSOLUTE AUTO 0.34 K/mm3 (0.16-1.47); MONOCYTES PERCENT AUTO 4 % (4-13); Mean Corpuscular HGB 29.5 pg (26.0-34.0); Mean Corpuscular Volume 92 fL (80-100); NEUTROPHILS ABSOLUTE AUTO 8.43 K/mm3 (1.96-9.15); NEUTROPHILS PERCENT AUTO 93 % (41-73); Platelet Count 186 K/mm3 (150-400); RDW Coefficient Variation 14.8 % (11.7-14.2); RDW Standard Deviation 50.2 fL (35.1-46.3); Red Blood Cell Count 4.51 M/mm3 (4.30-5.90); White Blood Cell Count 9.03 K/mm3 (4.00-11.30)
[2023-04-19 05:53] LABS: Bun/Creatinine Ratio 56.1 (12.0-20.0); Calcium, Blood 7.5 mg/dL (8.5-10.1); Creatinine, Blood 0.77 mg/dL (0.60-1.20); Potassium, Blood 3.5 mmol/L (3.5-5.5)
--- NOTE | 2023-04-19 07:39 | NUR ---
AM NOTE... ASSUMED CARE OF PT AT 0700, PT IS ON A PRECEDEX DRIP RUNNING AT 1.0MCG/KG/HR, PT RESPONDS TO NOXIOUS STIMULI, HE PULLS ON THE RESTRAINTS AND THRASHES IN THE BED. HE IS ON 2L NC WITH O2 SATS>90% L/S COARSE IN THE UPPER LOBES DIM T/O THE MID AND LOWER LOBES. PT HAS A MODERATE AMOUNT OF THICK ISABEL/PINK TINGED SPUTUM IN HIS UPPER AIRWAY, PT IS NOT FOLLOWING COMMANDS TO CLEAR HIS THROAT AT THIS TIME. HE IS IN SR IN THE 60'S-90'S BP IS HYPERTENSIVE WITH SBPs IN THE 160'S. HE HAS 2+ EDEMA NOTED HIS BUE. NG TUBE IS CLAMPED AT THIS TIME. BT PRESENT AND VERY HYPOACTIVE, ABD HAS MINIMAL DISTENTION AND IS FIRM TO PALPATION. UROSTOMY IS PATENT AND DRAINING TO GRAVITY. WILL CONTINUE TO MONITOR.
--- NOTE | 2023-04-19 17:58 | NUR ---
SHIFT SUMMARY... NO ACUTE NEGATIVE CHANGES NOTED THIS SHIFT. PRECEDEX DRIP IS CURRENTLY RUNNING AT 0.8MCG/KG/HR THIS HAS BEEN TITRATED DOWN FROM 1.4MCG/KG/HR. PT'S CWIA SCORES HAVE BEEN 20-23 THIS SHIFT. PRN IV ATIVAN AND LIBRIUM PER THE NG TUBE HAVE BEEN GIVEN WITH GOOD RESULTS. THE PT'S NEPHROSTOMY APPLIANCE WAS CHANGED THIS SHIFT D/T LEAKING. THE PT HAS NOT HAD A BM THIS SHIFT. PT CONTINUES TO BE VIOLENT AND AGGRESIVE TOWARDS STAFF DURING CARE. WILL CONTINUE TO MONITOR UNTIL REPORT IS GIVEN TO ONCOMING RN.
[2023-04-20] VITALS (24 sets, daily range): BP systolic 137–190; BP diastolic 81–147
--- NOTE | 2023-04-20 07:00 | NUR ---
ASSUME CARE: I have assumed care of this patient.
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
--- NOTE | 2023-04-20 12:35 | NUR ---
EXTUBATION: Pt extubated to RA with sister at bedside. No complications.
--- NOTE | 2023-04-20 13:17 | NUR ---
MAD CONSULT: Placed due to pt agression. This RN verbalized feeling for unsafe for personal safety while caring for patient.
--- NOTE | 2023-04-20 13:55 | NUR ---
MAD consult discussed with [employer] and learned the depth concerns for safety and liability. Idiscussed the case with Corporate Responsibilty Officer, Silvia Sue and she the Threat Assesment Team will evaluate from here. I will continue to remain available.
[2023-04-20 18:30] LABS: Magnesium, Blood 2.3 mg/dL (1.6-2.4); Phosphorus, Blood 2.7 mg/dL (2.5-4.9)
--- NOTE | 2023-04-20 18:47 | NUR ---
SHIFT SUMMARY: Pt up in chair for four hours today. He was deep suctioned twice orally with creamy secretions obtained. NC at home dose of 2L. CIWAs at 9. Precedex titrated down to 0.6 mcg/kg/hr. MAD consult placed as pt has been verbally and physically agressive to RN today. Pt has told this RN, "I'm going to kill you, you bitch" repeatedly today as well as several other profane names. He has attempted to spit, kick, and grab at this RN agressivly while providing patient care.
[2023-04-21] VITALS (31 sets, daily range): BP systolic 110–191; BP diastolic 75–126
[2023-04-21 03:43] LABS: Hematocrit 45.6 % (37.0-53.0); Mean Corpuscular HGB 29.1 pg (26.0-34.0); Mean Corpuscular HGB Conc 32.9 g/dL (31.5-36.5); Mean Corpuscular Volume 88 fL (80-100); Mean Platelet Volume 11.2 fL (9.1-12.4); Platelet Count 234 K/mm3 (150-400); RDW Coefficient Variation 14.5 % (11.7-14.2); RDW Standard Deviation 46.5 fL (35.1-46.3); Red Blood Cell Count 5.16 M/mm3 (4.30-5.90); White Blood Cell Count 6.11 K/mm3 (4.00-11.30)
[2023-04-21 04:00] LABS: Albumin, Blood 2.2 g/dL (3.4-5.0); Anion Gap 3 mmol/L (6-16); Blood Urea Nitrogen 26 mg/dL (8-24); Bun/Creatinine Ratio 41.9 (12.0-20.0); CO2, Blood 31 mmol/L (21-32); Calcium, Blood 7.6 mg/dL (8.5-10.1); Chloride, Blood 108 mmol/L (98-108); Creatinine, Blood 0.62 mg/dL (0.60-1.20); Glomerular Filtration Rate 105 (60-); Glucose, Blood 153 mg/dL (70-99); Magnesium, Blood 2.2 mg/dL (1.6-2.4); Potassium, Blood 3.8 mmol/L (3.5-5.5); Sodium, Blood 142 mmol/L (136-145)
--- NOTE | 2023-04-21 08:00 | NUR ---
INITIAL ASSESSMENT PATIENT SLEEPING SOUNDLY UPON ENTERING ROOM. PATIENT WAKES TO VERBAL STIMULI. PATIENT ORIENTED TO SELF. DIFFICULT TO ASSESS ORIENTATION PATIENT ON PRECEDEX DRIP AND IS UNCOOPERATIVE WITH CARE MOST OF THE TIME. PRECEDEX DRIP AT 1.4 MCG/ KG/ HOUR. CIWA SCORE OF 9 FOR ORIENTATION AND AGITATION. PATIENT VULGAR AND CUSSING AT STAFF WHEN PERFORMING PATIENT CARE. PATIENT CONTINUES TO TELL STAFF "FUCK YOU" AND "GO FUCK YOURSELF". PATIENT INFORMED THAT STAFF ARE HERE TO HELP HIM. PATIENT KEEPS EYES CLOSED. SPEECH MUMBLED. PATIENT AFEBRILE. NO SIGNS OF PAIN NOTED. PATIENT SATTING 90% AND GREATER ON 2 L NC (HOME DOSE). LUNGS DIMINISHED THROUGHOUT. PATIENT HAS OCCASIONAL, WEAK, NONPRODUCTIVE COUGH. PATIENT IN SR, HR IN THE 80S. SBP IN THE 160S. 1+ EDEMA TO BUES AND BILAT FEET. ABD MODERATELY DISTENDED, SOFT, NONTENDER WITH NORMOACTIVE BOWEL SOUNDS NOTED. NG TO R NARE WITH TF INFUSING AT GOAL RATE. DATE OF LAST BM 04/15. PENILE EDEMA NOTED. CHRONIC UROSTOMY IN PLACE TO R QUADRANT. SCATTERED BRUISES NOTED. SKIN REDDENED. BILAT AC SWELLING NOTED. ABRASION NOTED TO L HAND. BUTTOCKS REDDENED BUT BLANCHEABLE. BED LOW, CALL LIGHT IN REACH. CARE CONTINUES.
--- NOTE | 2023-04-21 12:30 | NUR ---
PATIENT AFEBRILE. PATIENT ALERT AND ORIENTED X 4. PRECEDEX REMAINS OFF SINCE THIS AM. CIWA OF 5. PATIENT MORE COOPERATIVE AND FOLLOWING NURSE COMMANDS. PATIENT STILL SAYS NASTY COMMENTS LIKE "I WILL KILL YOU FIRST" TO STAFF BUT COMMENTS HAVE DECREASED SUBSTANTIALLY FROM THIS AM. HR IN THE 120S. SBP IN THE 160S. BLOOD SUGAR 156; COVERAGE ADMINISTERED. CARE CONTINUES.
--- NOTE | 2023-04-21 14:48 | NUR ---
MAD Consult follow-up: Threat Assessment Team engaged with Dr. Francois and Security to ensure patient and staff safety. Met this AM twice in ICU and conferred with RN this afternoon. From her report, patient is behaving better with no further threats or abuse. RN aware to call Security if any increase in violent behaviors.
--- NOTE | 2023-04-21 16:00 | NUR ---
PATIENT AFEBRILE. HR IN THE 120S. SBP IN THE 170S. NG OUT AND PATIENT NOW ON PUREE DIET PER SPEECH THERAPY. CIWA 13. PRN ATIVAN GIVEN. PRN MEDS GIVEN FOR HYPERTENSION. PATIENT APPRECIATIVE OF NURSING CARE AT THIS TIME. PATIENT ASKED THIS NURSE TO HOLD HAND. NURSE HELD PATIENT'S HAND AND PATIENT TEARFUL AND STATED "I AM SCARED". NURSE ASKED WHAT PATIENT SCARED OF AND HE STATED "I WANT TO GET BETTER TO SEE MY GRAND KIDS AGAIN". PATIENT INFORMED THAT HE IS DOING BETTER BUT THAT HE NEEDS TO STOP DRINKING HE HAS BEEN GOING THROUGH ALCOHOL WITHDRAWALS. THIS NURSE HAD LONG CONVERSATION WITH PATIENT'S BROTHER TODAY. BROTHER CONCERNED ABOUT IF PATIENT GOING TO BE DISCHARGED HOME. BROTHER STATED THAT PATIENT LIVES IN OLD MOTEL ROOM THAT IS SO CLUTTERED YOU CAN'T WALK IN IT AND THAT ALL THE PATIENT DOES IS DRINK AND SMOKE. THE BROTHER IS CONCERNED THAT IF THE PATIENT GOES BACK TO THE SAME LIVING SITUATION THAT HE WILL NOT LIVE LONG. PATIENT IS "IMPATIENT AND IRRITABLE" AT BASELINE PER BROTHER. CARE CONTINUES.
--- NOTE | 2023-04-21 18:37 | NUR ---
SHIFT SUMMARY PATIENT TAKEN OFF PRECEDEX THIS AM AROUND 0930. PATIENT IRRITABLE AND AGITATED THIS AM AND WOULD CURSE AND YELL AT NURSING. PATIENT WOULD SAY THINGS SUCH "FUCK YOU", "GO FUCK YOURSELF", AND "YOU WILL BE THE FIRST ONE I KILL". PATIENT HAS NOT TRIED TO HIT OR SPIT ON NURSE THIS SHIFT. THIS AFTERNOON PATIENT HAS GONE BETWEEN BEING PLEASANT AND APPRECIATIVE TO IRRITABLE AND IMPATIENT. PATIENT IS ALERT AND ORIENTED X 4 SINCE PRECEDEX DRIP TURNED OFF. PATIENT HAS HAD NO COMPLAINTS OF PAIN THIS SHIFT. PATIENT WEAK BUT ABLE TO MOVE ALL EXTREMITIES. CIWA SCORED RANGED FROM 5 TO 13. PATIENT WAS GIVEN ATIVAN X 2 AND LIBRIUM OT THIS SHIFT FOR SWEATING, AGITATION AND INCREASED HR AND BP. PATIENT REMAINED SATTING 90% AND GREATER ON 2 L NC. PATIENT SR TO ST, HR 80S TO 120S. SBP LOW 100S TO 190S. PRN CATAPRES AND HYDRALAZINE GIVEN THIS SHIFT FOR HTN. SUPPOSITORY GIVEN THIS SHIFT PATIENT HAD NOT HAD BM SINCE THE . PATIENT HAD SMALL, BROWN MUCOUSY STOOL THIS SHIFT. NG WITH TF DC'D THIS SHIFT. SPEECH THERAPY SAW PATIENT AND PLACED ON PUREE DIET; PATIENT TOLERATING WELL THUS FAR. 1475 MLS OF URINE (+ LEAKAGES) OUT FROM UROSTOMY. UROSTOMY DEVICE CHANGED X 2 THIS SHIFT. NO CHANGES TO SKIN NOTED. COMPLETE BED BATH PERFORMED. BLOOD SUGARS 156 AND 164 THIS SHIFT. PATIENT UP TO CHAIR WITH LIFT THIS SHIFT. NO COMPLAINTS AT THIS TIME. BED LOW, CALL LIGHT IN REACH. REPORT WILL BE GIVEN TO ASSUMING FULL DECATOR OPERATOR NURSE SHORTLY.
[2023-04-22] VITALS (18 sets, daily range): BP systolic 109–175; BP diastolic 56–117
--- NOTE | 2023-04-22 00:25 | NUR ---
UPDATE PATIENT CIWA'S REMAIN LOW AT 3-5. PATIENT INTERMITTENTLY YELLS OUT AND WHEN ASKED WHAT THIS NURSE MAY HELP WITH HE REQUESTS THAT I "REMOVE THE LEG THAT IS STUCK TO HIM". PATIENT EDUCATED THAT LEG CANNOT BE REMOVED. PATIENT DECLINES REPOSITIONING WITH PILLOW BETWEEN LEGS. AFTER EDUCATING PATIENT HE BEGINS YELLING AT THIS NURSE "I WILL KILL YOU" "DON'T COME IN HERE AGAIN" AND "I WILL FIND YOU AND KILL YOU". CALL LIGHT IN REACH.
--- NOTE | 2023-04-22 00:50 | NUR ---
INCREASED AGGRESSION PATIENT BEGAN RIPPING TELE LEADS OFF AND REMOVING GOWN. EDUCATED PATIENT ON USE OF TELE LEADS AND PULSE OXIMETRY. PATIENT REPLIED "GET THESE FUCKING THINGS OFF OF ME NOW". ATTEMPTED TO DEESCALATE SITUATION AND SECURITY CALLED TO BEDSIDE AFTER PATIENT GRABBED THIS NURSES HAND AND REFUSED TO LET GO. EXPLAINED TO PATIENT I WAS HERE TO HELP AND I NEEDED TO MONITOR HIS HEART AND OXYGEN. PATIENT ALLOWED ME TO CHANGE PATIENT GOWN AND REPLACE PULSE OX AND TELE LEADS WHILE YELLING "I WILL KILL YOU". THE PATIENT THEN ASKED IF I HAD KIDS, TO WHICH I RESPONDED YES. THE PATIENT THEN STATED "I'LL KILL YOUR FUCKING KIDS TOO". NO TREMORS, NAUSEA, HEADACHE, OR HALLUCINATIONS PRESENT. CIWA AT THE TIME OF EVENT WAS 12 D/T ANXIETY, AGITATION, AND SWEATING.
--- NOTE | 2023-04-22 01:29 | NUR ---
HALDOL PATIENT CONTINUES PULLING OFF LEADS AND GOWN. CALL MADE TO DR. ENGLAND AND ORDER RECEIVED FOR HALDOL 2MG IM Q4H PRN AGITATION.
--- NOTE | 2023-04-22 08:05 | NUR ---
INITIAL ASSESSMENT PATIENT GRUMBLING IN BED UPON ENTERING ROOM. PATIENT ALERT AND ORIENTED TO SELF, FAMILY AND FOLLOWING DIRECTIONS. PATIENT SLEEPY THIS AM. PATIENT CALM AND COOPERATIVE THIS AM. SPEECH MUMBLED. PATIENT WEAK BUT ABLE TO MOVE ALL EXTREMITIES. CIWA SCORE OF 4 THIS AM BC OF DISORIENTATION THIS AM. PATIENT AFEBRILE. NO COMPLAINTS OF PAIN THIS AM. LUNGS DIMINISHED THROUGHOUT. PATIENT SATTING MID TO HIGH 90S ON 2 L NC (HOME DOSE). PATIENT HAS OCCASIONAL, WEAK, NONPRODUCTIVE COUGH. PATIENT IN ST, HR IN THE LOW 100S. SBP IN THE 160S. 1+ EDEMA NOTED TO BUES AND BILAT FEET. PATIENT ON PUREE DIET. PATIENT HAD SMALL BM YESTERDAY. SCATTERED BRUISES NOTED. BUTTOCKS REDDENED; MEPILEX IN PLACE. BED LOW, CALL LIGHT IN REACH. CARE CONTINUES.
[2023-04-22 08:25] LABS: Hematocrit 43.9 % (37.0-53.0); Hemoglobin 14.2 g/dL (13.5-17.5); Mean Corpuscular HGB Conc 32.3 g/dL (31.5-36.5); Mean Corpuscular Volume 90 fL (80-100); Mean Platelet Volume 11.4 fL (9.1-12.4); Platelet Count 294 K/mm3 (150-400); RDW Coefficient Variation 14.9 % (11.7-14.2); RDW Standard Deviation 48.6 fL (35.1-46.3); Red Blood Cell Count 4.89 M/mm3 (4.30-5.90); White Blood Cell Count 10.48 K/mm3 (4.00-11.30)
[2023-04-22 08:52] LABS: Albumin, Blood 2.3 g/dL (3.4-5.0); Anion Gap 3 mmol/L (6-16); Blood Urea Nitrogen 26 mg/dL (8-24); CO2, Blood 34 mmol/L (21-32); Calcium, Blood 7.8 mg/dL (8.5-10.1); Chloride, Blood 109 mmol/L (98-108); Creatinine, Blood 0.84 mg/dL (0.60-1.20); Glomerular Filtration Rate 96 (60-); Glucose, Blood 103 mg/dL (70-99); Magnesium, Blood 2.3 mg/dL (1.6-2.4); Phosphorus, Blood 2.8 mg/dL (2.5-4.9); Potassium, Blood 3.4 mmol/L (3.5-5.5); Sodium, Blood 146 mmol/L (136-145)
--- NOTE | 2023-04-22 10:03 | NUR ---
DR. BEARD CALLED AND INFORMED THAT [employer] STATED PATIENT HAS DVT IN R BRACHIAL VEIN. ALSO INFORMED THAT POTASSIUM CAME BACK AT 3.4. STATED HE WOULD PUT ORDERS IN.
--- NOTE | 2023-04-22 10:50 | NUR ---
THREATENING BEHAVIOR AND IPAD. PATIENT GRUMBLING, CURSING AND THREATENING STAFF SAYING THAT HE WILL KILL THEM AND THEIR CHILDREN IF THEY DO NOT FIND HIS IPAD. PATIENT INFORMED THAT THERE IS NO IPAD IN THE ROOM AND THAT ONLY A BLACK WALLET AND WET CLOTHES ARE IN BELONGINGS BAG IN THE ROOM. PATIENT AGAIN INFORMED THAT THERE IS NO IPAD IN THE ROOM AND THAT WE CAN CALL BROTHER TO SEE IF IPAD IS AT HOME. BROTHER, FELIBERTO, CALLED FROM PATIENT ROOM AND ASKED ABOUT IPAD. BROTHER STATED THAT HE BROUGHT IN PATIENT'S IPAD FOR HIM. PATIENT INFORMED THAT BROTHER STATED HE BROUGHT IPAD IN AND WILL INQUIRE ABOUT IPAD WITH CHARGE NURSE IN PCU WHERE PATIENT WAS BEFORE ICU. PATIENT STATED "THEY HAD IT IN CHARGING ROOM". CHARGE NURSE, DOROTHY MOTA, INFORMED THAT PATIENT UPSET ABOUT IPAD, THAT IT IS NOT IN HIS ROOM AND THAT IT WAS CONFIRMED WITH BROTHER THAT IT WAS BROUGHT IN TO HOSPITAL BY BROTHER AND GIVEN TO PATIENT. DAUGHTER, DELPHINE, CALLED AND INFORMED THAT BROTHER BROUGHT IT IPAD BUT WANTED TO MAKE SURE THAT SHE DID NOT TAKE IT HOME. DAUGHTER STATED THAT SHE DID NOT TAKE IPAD HOME. AJ WITH SECURITY INFORMED OF LOST IPAD. AJ TO PCU TO LOOK FOR IPAD.
--- NOTE | 2023-04-22 12:15 | NUR ---
PATIENT DISORIENTED TO TOWN AND STATE AND HOSPITAL. PATIENT ORIENTED TO SELF, FAMILY, FOLLOWING COMMANDS AT TIMES, MONTH AND YEAR. PATIENT ANGRY, IRRITABLE AND DEFENSIVE. PATIENT CONTINUES BEING RUDE TO STAFF AND THREATEN STAFF WITH COMMENTS SUCH "I WILL KILL YOU AND YOUR CHILDREN" AND "I AM GOING TO COME BACK HERE AND MURDER YOU". PATIENT GRABBED NURSES HAND HARD WHEN TRYING TO PERFORM NURSING CARE. NURSE ABLE TO GET HAND OUT OF PATIENT'S AND TOLD HIM THAT IT IS NOT ACCEPTABLE TO TREAT PEOPLE THAT WAY; AND AGAIN THREATS CONTINUED. CIWA SCORE OF 7 FOR AGITATION. PATIENT UNCOOPERATIVE AT TIMES. PATIENT AFEBRILE. HR IN THE LOW 100S. SBP IN THE 140S. PATIENT HAS MOIST COUGH. BED LOW, CALL LIGHT IN REACH. NO COMPLAINTS OF PAIN. CARE CONTINUES.
--- NOTE | 2023-04-22 13:45 | NUR ---
FRIEND OF PATIENT CALLED AND SENT TO ROOM PHONE FOR PATIENT. NURSE HELPED PATIENT WITH PHONE AND THEN LEFT ROOM. PATIENT DONE ON PHONE AND STARTED HITTING PHONE VERY HARD AGAINST BED RAIL. PATIENT TOLD TO STOP AND PATIENT CURSED AT STAFF. THIS NURSE AND CHARGE NURSE TO ROOM. PRN ATIVAN GIVEN FOR ESCALATION OF AGGRESSION AND AGITATION.
--- NOTE | 2023-04-22 18:28 | NUR ---
SHIFT SUMMARY PATIENT COOPERATIVE AND NOT VERBALLY ASSAULTING AND THREATENING SHIFT TWICE THIS SHIFT; BOTH FOR SHORT PERIODS. THE REST OF THE DAY PATIENT CURSING AND THREATENING NURSING STAFF STATING THAT HE IS GOING TO KILL THEM, KILL THEIR CHILDREN, CALLING THEM "BITCHES, CUNTS, FAGS", ETC. PATIENT GRABBED AND SQUEEZED PRIMARY NURSES HAND VERY HARD THIS SHIFT IN ATTEMPT TO HURT NURSE. NURSE FINALLY ABLE TO GET HAND OUT OF PATIENT'S. PATIENT CONTINUED TO TELL NURSE "YOU ARE GOING TO DO WHAT I WANT" AND "YOU ARE GOING TO LISTEN TO ME". PATIENT MAD ABOUT MISSING IPAD, ABOUT GETTING URINE CLEANED UP OFF HIS SKIN BEFORE HELPING TO CALL BROTHER, FOR OTHER NURSING CARE BEFORE GIVING A DRINK OF SPRITE, ETC. PATIENT GIVEN 4 MG IV ATIVAN OT THIS SHIFT WHEN PATIENT ESCALATED TO SLAMMING ROOM PHONE AGAINST SIDE OF BED. NO COMPLAINTS OF PAIN THIS SHIFT. PATIENT REMAINED AFEBRILE. PATIENT REMAINS WEAK BUT ABLE TO MOVE ALL EXTREMITIES. LUNGS REMAIN DIMINISHED. PATIENT HAS WEAK, MOIST, NONPRODUCTIVE COUGH. PATIENT REMAINS ON [address], HR LOW 100S TO 1-TEENS. SBP 120S TO 170S. NO BM THIS SHIFT. PATIENT ATE A LITTLE OF THE FOOD AT EACH MEAL. PATIENT NOT A HUGE FAN OF PUREE DIET. 850 MLS OF URINE OUT OF UROSTOMY THIS SHIFT WITH MULTIPLE LEAKAGES; UROSTOMY REPLACED 4 TIMES THIS SHIFT. AREA AROUND UROSTOMY RED WITH ABRASIONS NOTED. ULTRASOUND PERFORMED TO BUES THIS SHIFT- DVT TO R BRACHIAL PER TECH. XARELTO STARTED THIS SHIFT. PATIENT GIVEN 40 MEQ KCL THIS SHIFT. PSYCH CONSULTED THIS SHIFT BY DR. BEARD. PATIENT RECEIVED COMPLETE BED BATH THIS SHIFT. BED LOW, CALL LIGHT IN REACH. REPORT WILL BE GIVEN TO ASSUMING MANAGER INVESTMENT BANKING NURSE SHORTLY.
[2023-04-23 03:23] LABS: Hematocrit 41.9 % (37.0-53.0); Hemoglobin 13.3 g/dL (13.5-17.5); Mean Corpuscular HGB 28.9 pg (26.0-34.0); Mean Corpuscular HGB Conc 31.7 g/dL (31.5-36.5); Mean Corpuscular Volume 91 fL (80-100); Platelet Count 243 K/mm3 (150-400); RDW Standard Deviation 49.1 fL (35.1-46.3); White Blood Cell Count 9.08 K/mm3 (4.00-11.30)
[2023-04-23 03:42] LABS: Bun/Creatinine Ratio 26.7 (12.0-20.0); Calcium, Blood 7.8 mg/dL (8.5-10.1); Creatinine, Blood 0.82 mg/dL (0.60-1.20); Magnesium, Blood 2.2 mg/dL (1.6-2.4); Potassium, Blood 3.4 mmol/L (3.5-5.5)
[2023-04-23 05:12] VITALS: BP 147/82
--- NOTE | 2023-04-23 05:35 | NUR ---
K3.4, ORDER RECEIVED FROM DR MARTINEZ TO REPLACE, SEE EMAR.
--- NOTE | 2023-04-23 06:26 | NUR ---
DILAUDID X1 FOR PAIN, SLEPT ON/OFF ALL NIGHT, COOPERATIVE FOR THE MOST PART, UROSTOMY CHANGED 4 TIMES FOR CONTINUOUS LEAKING/NOT ADHERING TO SKIN. K+ REPLACED.
[2023-04-23 08:24] VITALS: BP 120/71
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
--- NOTE | 2023-04-23 11:42 | NUR ---
UROSTOMY PT SEDATED AT THIS TIME. THIS RN, WELDER FABRICATOR, AND FULL STACK PHP DEVELOPER AT BEDSIDE TO CLEAN PT AND REAPPLY UROSTOMY. NEW APPLIANCE IN PLACE WITHOUT LEAKING NOTED AT THIS TIME. SKIN SURROUNDING UROSTOMY IS REDDENED AND SWOLLEN. BARRIER POWDER APPLIED. PT CONTINUES WITH VERBAL THREATS TO KILL NURSING STAFF AND ATTEMPTS TO SWING AT STAFF. LINENS CHANGED. PT RESTING QUIETLY AT THIS TIME. WILL CONTINUE TO MONITOR.
--- NOTE | 2023-04-23 12:30 | NUR ---
[address] LUNA AT BEDSIDE TO SEE PT WITH SECURITY. PT IS DROWSEY, BUT ANSWERS DR LUNAS QUESTIONS. PT PLACED ON A 2 MD HOLD AT THIS TIME, WITHOUT SI PRECAUTIONS PER DR MORRISSEY. PT READ CIVIL RIGHTS. UNABLE TO SIGN DUE TO CONTINUED ATTEMPTS TO SWING AT STAFF.
--- NOTE | 2023-04-23 14:32 | NUR ---
INVOLENTARY HOLD WITHOUT 1:1 SITTER PT IS NON AMBULATORY AT THIS TIME. IN CONSULTATION WITH NURSE EXECUTIVE TEAM, HOSPITALIST PROVIDER, AND PSYCHIATRIC PROVIDER; NO SITTER IS REQUIRED AT THIS TIME UNTIL PATIENT IS AMBULATORY.
--- NOTE | 2023-04-23 14:43 | NUR ---
UROSTOMY PT REMOVED UROSTOMY. ATTENDS AND DRYFLOWS PLACED.
--- NOTE | 2023-04-23 14:52 | NUR ---
INVOLENTARY HOLD DISCONTINUED DR MORRISSEY HERE AT BEDSIDE. DUE TO PT NON AMBULATORY STATUS, INVOLENTARY HOLD RELEASED AT THIS TIME. PAPERWORK PLACED IN CHART.
--- NOTE | 2023-04-23 15:37 | NUR ---
Care Conference: Placed a call to pt's daughter Arlet today. We had a lengthy conversation regarding the patient's current condition. She states her dad's physical condition has been steadily declining over the past couple years. She states he is "always in horrible pain, always very anxious and afraid to ". Provided emotional support, while Arlet states she's processing her many emotions. She states she doesn't want her dad to suffer, and states she believes he is reaching end of life due to his increase in both cognitive and physical decline. She states she's planning to call her uncle, the patient's brother as well as make a visit to patient christian. She is agreeable to change pt's code status to DNR once explaination of Full Code vs DNR entail. She is also considering beginning comfort care for him, as she states she fully believes this is what he wants, just didn't understand it could be a possibility. She has Palliative Care contact information, and plans to reach out. Care Management, Ethics and Dr. Olivares aware. Received v/o for DNR code status.
[2023-04-23 17:38] VITALS: BP 128/76
--- NOTE | 2023-04-23 17:52 | NUR ---
SHIFT SUMMARY PT WITH SEVERE AGITATION, VERBAL AGRESSION, AND ATTEMPTING TO HIT STAFF THIS MORNING. PT SEEN BY DR MORRISSEY THIS SHIFT. PT MED WITH IM HALDOL AND ZYPREXA THIS SHIFT. PT IS MORE SEDATED THIS EVENING, BUT CONTINUES TO MUMBLE AND WITHDRAW FROM NURSING CARE. SEE PREVIOUS NOTES FOR MORE DETAILED INFO. POWERGLIDE TO BEST REMAINS INTACT, SALINE LOCKED. VITAL SIGNS STABLE. PT ON 2L O2 NC. PT PULLED OFF MULTIPLE UROSTOMY APPLIANCES. PT WITH ATTENDS IN PLACE OVER UROSTOMY SITE AT THIS TIME. PT DAUGHTER AT BEDSIDE THIS EVENING. WILL CONTINUE TO MONITOR AND REPORT OFF TO ONCOMING RN.
--- NOTE | 2023-04-23 19:14 | NUR ---
ASSUMING CARE RECEIVED INTO CARE, REPORT GIVEN BY DAY RN, PT LYING IN BED EYES CLOSED, RESPS APPEAR EASY AND UNLABOURED. RT IN TO ASSESS.
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
[2023-04-23 19:45] VITALS: BP 136/76
[2023-04-24 04:39] VITALS: BP 110/63
--- NOTE | 2023-04-24 06:25 | NUR ---
SLEPT THROUGHOUT NIGHT NO PRNS NEEDED, VERY DROWSY. NOT ORIENTED, OCCASSIONALLY ANSWERS A YES/NO QUESTION. AUDIBLY MORE WET SOUNDING NOT CLEARING SECERETIONS WELL. DNR BAND PUT ON LEFT WRIST. PUREWICK USED OVERNIGHT ON UROSTOMY TO LOW SUCTION.
--- NOTE | 2023-04-24 07:29 | NUR ---
ASSUMED CARE: PT IS RESTING IN BED AT THIS TIME. O2 SAT SHOWS 94% ON 2L NC. NO ACUTE NEEDS OR CONCERNS AT THIS TIME.
[2023-04-24 07:42] VITALS: BP 113/60
--- NOTE | 2023-04-24 09:25 | NUR ---
PT'S O2 SATURATION DROPPED TO 81% ON 2L NC. CHANGED O2 SAT PROBE, SAT PT UP AND DID ORAL SUCTION WITH THICK YELLOW SECRETIONS REMOVED. PT GOT AGITATED AND SAID "GET THE F--- AWAY FROM ME." INCREASED O2 TO 5L. PT WAS SATTING AT 88% WHEN DR FRENCH CAME TO BEDSIDE. ORDERED STAT CXR. PT WAS POSITIONED FOR XRAY HE WAS ASKING FOR FOOD. GOT MEDS AND CRUSHED THEM AND ADMINISTERED WITH BREAKFAST. ST AT BEDSIDE PERFORMING EVALUATION. SATTING 95% ON 5L AT THIS TIME.
--- NOTE | 2023-04-24 10:34 | NUR ---
PSYCHIATRY CAME AND ROUNDED ON PT. AWARE THAT PT IS GRUMPY BUT HAS NOT BEEN THREATENING STAFF THIS AM. STATES HE WILL ROUND AGAIN LATER THIS SHIFT TO DETERMINE IF MEDS ARE EFFECTIVE OR NEED FURTHER CHANGES
[2023-04-24 12:02] LABS: BASOPHILS ABSOLUTE AUTO 0.03 K/mm3 (0.00-0.23); BASOPHILS PERCENT AUTO 0 % (0-2); EOSINOPHILS ABSOLUTE AUTO 0.02 K/mm3 (0.00-0.68); EOSINOPHILS PERCENT AUTO 0 % (0-6); Hematocrit 44.7 % (37.0-53.0); Hemoglobin 14.1 g/dL (13.5-17.5); IMMATURE GRAN ABSOLUTE AUTO 0.14 K/mm3 (0.00-0.10); IMMATURE GRAN PERCENT AUTO 1 % (0-1); LYMPHOCYTES ABSOLUTE AUTO 0.97 K/mm3 (0.84-5.20); LYMPHOCYTES PERCENT AUTO 4 % (21-46); MONOCYTES ABSOLUTE AUTO 0.98 K/mm3 (0.16-1.47); MONOCYTES PERCENT AUTO 4 % (4-13); Mean Corpuscular HGB 28.8 pg (26.0-34.0); Mean Corpuscular HGB Conc 31.5 g/dL (31.5-36.5); Mean Corpuscular Volume 91 fL (80-100); Mean Platelet Volume 11.3 fL (9.1-12.4); NEUTROPHILS ABSOLUTE AUTO 21.02 K/mm3 (1.96-9.15); NEUTROPHILS PERCENT AUTO 91 % (41-73); Platelet Count 254 K/mm3 (150-400); RDW Standard Deviation 48.9 fL (35.1-46.3); White Blood Cell Count 23.16 K/mm3 (4.00-11.30)
[2023-04-24 12:37] LABS: BASOPHILS PERCENT MAN 0 % (0-2); EOSINOPHILS PERCENT MAN 0 % (0-6); LYMPHOCYTES ABSOLUTE MAN 1.15 K/mm3 (0.84-5.20); LYMPHOCYTES PERCENT MAN 5 % (21-46); MONOCYTES ABSOLUTE MAN 0.23 K/mm3 (0.16-1.47); MONOCYTES PERCENT MAN 1 % (4-13); NEUTROPHILS ABSOLUTE MAN 21.77 K/mm3 (1.96-9.15); SEG NEUTROPHILS PERCENT MAN 94 % (41-73); TOTAL CELLS COUNTED 100
--- NOTE | 2023-04-24 14:14 | NUR ---
PALLIATIVE CARE CONVERSED WITH PT'S FAMILY AND DECIDED TO DC ON HOSPICE BUT NOT COMFORT CARE AT THIS TIME. CALLED DR FRENCH TO RELAY THIS AND DISCUSS XRAY AND WBC. TO REVIEW AND PLACE FURTHER ORDERS.
--- NOTE | 2023-04-24 14:19 | NUR ---
pt statting to aspirate more and mentation declining. Review wo pt with nursing and physician. updated daughter on patients decline. She is inclined to accept hospice. pt daughter called her uncle and they reviewed his care needs. They are in alignment that he is nearing the end of his life and is suffering more and getting more confussed and disabled. pt kps score is 30. Reviewed case with director of social services and care managment staff. pt sister email with permission provided to director of social services. Daugher willing to make decisions and do gruardiaship if needed. polst completed.
--- NOTE | 2023-04-24 16:02 | NUR ---
PT'S DAUGHTER ARRIVED AND STATES SHE WANTS TO PLACE PT ON COMFORT CARE NOW. PT AWOKE AND TOLD DAUGHTER HE WAS HUNGRY AND THIRSTY. OFFERED APPLESAUCE AND PUDDING AND PT SAID "I DON'T WANT THAT. I WANT STEAK AND POTATOES." PT THEN STATED HE WAS "SOAKING WET." WHEN NURSE WENT TO CHANGE DRY FLOW HE SAID "HURRY UP YOU DUMB CUNT." STAFF REMINDED PT TO NOT SPEAK THAT WAY. PT'S DAUGHTER AT BEDSIDE WISHING FOR A MOMENT ALONE WITH HIM. PALLIATIVE CARE NURSE WAITING OUTSIDE OF ROOM
--- NOTE | 2023-04-24 17:28 | NUR ---
REPORT GIVEN TO MEDICAL FLOOR RN. PT TRANSFERRED VIA BED ON RA. PT'S DAUGHTER AWARE OF NEW ROOM ASSIGNMENT. PT APPROPRIATE DURING BED TRANSFER TO STAFF. NO ACUTE NEEDS OR CONCERNS IDENTIFIED DURIGN TRANSFER
--- NOTE | 2023-04-24 18:17 | NUR ---
PT TRANSFERED FROM ICU. HAS BEEN CALM AND COOPERATIVE SO FAR. NO BOUTS OF ANGER AT THIS TIME. PT REQUESTED [employer] FOR DINNER. ORDER PLACED. PURWICK AND PADDING COVERING UROSTOMY. PT IS ABLE TO MAKE NEEDS KNOWN.
--- NOTE | 2023-04-25 06:33 | NUR ---
SHIFT SUMMARY PT LAYING IN BED DURING BEDSIDE ROUNDS, PT CURRENTLY ON 2L VIA NC, PUREWICK IN PLACE TO THE UROSTOMY- PT REFUSES TO ALLOW UROSTOMY BAG TO BE PLACED- PT STATES THAT ONLY 1 KIND OF BAG WORKS FOR HIM AND THE HOSPITAL DOESN'T CARRY THE TYPE= PUREWICK OVER THE STOMA, REINFORCED WITH 2 ABD PADS, AND TYONEK PEE PAD OVER THE ABDS AND REINFOCED WITH BRIEF- SUCTIONING CLEAR YELLOW URINE- PT ON [employer] PRECAUTIONS D/T COVID +- PT USED CALL LIGHT MULTIPLE TIMES AT BEGINNING OF SHIFT FOR CHEESE BURGER- FOOD REQUEST ENTERED FOR BREAKFAST, DIETARY CALLED AND NOTIFIED OF WHAT THEY CAN PROVIDE BASED ON PT'S PUREED DIET- BED LOW POSITION, CALL LIGHT WITHIN REACH, BED ALARM IN PLACE
--- NOTE | 2023-04-25 16:04 | NUR ---
PT IS ALERT AND ORIENTED X4. CALM AND COOPERATIVE WITH CARES. TREATED PAIN PER EMAR. PT IS ABLE TO MAKE NEEDS KNOWN. FAMILY CAME IN TO VISIT WITH HIM. HE HAS BEEN TEARFUL AT TIMES. BEDREST. PURWICK AND ABSORBENT PADS PLACED ON UROSTOMY OPENING. NO ACUTE CHANGES THIS SHIFT.
--- NOTE | 2023-04-25 18:38 | NUR ---
review of patient with nursing. He is calm today and resting. plan is dc on hospice.
--- NOTE | 2023-04-25 23:20 | NUR ---
PATIENT REPORTS N/V. NO IV ACCESS. HOSPITALIST DR ENGLAND ORDERED PO ZOFRAN 4 MG ODT Q 6 PRN.
--- NOTE | 2023-04-26 04:03 | NUR ---
SHIFT SUMMARY PATIENT ON COMFORT CARE. AXOX 3 AND BEDREST. GARBLE SPEECH AT TIMES. N/V FIRST PART OF SHIFT AND PO ZOFRAN 4 MG ODT GIVEN WITH MINIMAL EFFECT. TAKES MEDS CRUSHED IN APPLE SAUCE. REPORTED ANXIETY X TWO AND PO ATIVAN 1 MG GIVEN PER EMAR. ROXANOL 5 MG GIVEN FOR GENERAL PAIN X ONE. SLEPT ON/OFF SECOND PART OF SHIFT. ON 2L O2 NC. PUREWICK AND ABSORBENT PAD PLACED OVER UROSTOMY OPENING. CALL LIGHT IN REACH. BED IN LOWEST POSITION AND ALARM ACTIVATED. WILL CONTINUE TO MONITOR UNTIL DAY SHIFT NURSE ASSUMES CARE.
--- NOTE | 2023-04-26 10:13 | NUR ---
PT IS RESPONDING TO VERBAL STIMULI BUT NOT FOR LONG. FALLS RIGHT BACK TO SLEEP. SKIN IS MOTTLED, BLE ARE BLUE IN COLOR. CAP REFILL >5. MEDICATED PER EMAR FOR PT COMFORT. PER LUZ MARINA ZAVALA TO CHANGE ROXINOL TO Q 1HR.
--- NOTE | 2023-04-26 16:12 | NUR ---
PT IS CURRENTLY LAYING IN BED WITH EYES CLOSED, BREATHING IS UNLABORED AND SHALLOW. HE DID WAKE BRIEFLY AND ATE SOME PUDDING AND ICE CREAM. NOT MUCH INTAKE TODAY. TREATED PAIN AND AIR HUNGER PER EMAR. PT IS ON 0-2L NC. HE REMOVES OXYGEN OFTEN. HE HAS BEEN CALM AND COOPERATIVE WHILE AWAKE. HE IS MOTTLED AND EMERSON. PLACE A COLOSTOMY BAG IN PLACE OF UROSTOMY BAG. APPEARS TO BE HOLDING UP AT THIS TIME. UNABLE TO ASSESS ORIENTATION. DR. HUDSON CAME BY TO SEE PT. PT APPEARED TO BE RESTING COMFORTABLY AT THE TIME SO HE DID NOT WANT TO BOTHER HIM.
--- NOTE | 2023-04-27 02:06 | NUR ---
CALLED PATIENT DAUGHTER DELPHINE TO GIVE UPDATES. LEFT MESSAGE TO CALL BACK. TM.
--- NOTE | 2023-04-27 04:03 | NUR ---
SHIFT SUMMARY PATIENT ON COMFORT CARE. EYES CLOSED THROUGHOUT SHIFT AND NOT ABLE TO MAKE NEEDS KNOWN. NON-VERBAL THIS SHIFT. BEDREST. ON 2L O2 NC. SUCTION PRN. SKIN MOTTLED. UROSTOMY. NO IV ACCESS. ROXANOL 20 MG GIVEN X ONE FOR PAIN MANAGEMENT AND AIR HUNGER. CALL LIGHT IN REACH. BED IN LOWEST POSITION AND ALARM ACTIVATED. WILL CONTINUE TO MONITOR UNTIL DAY SHIFT NURSE ASSUMES CARE.
--- NOTE | 2023-04-27 09:35 | NUR ---
ASSUMED CARE OF PT. PT ASSESSMENT SHOWS EXCESS SECRETIONS, CALLED DR AND RECEIVED ORDER FOR ATROPINE.
--- NOTE | 2023-04-27 11:11 | NUR ---
CALL TO DAUGHTER ATTEMPTED, VOICE MAIL LEFT.
--- NOTE | 2023-04-27 17:35 | NUR ---
SHIFT SUMMARY PT UNRESPONSIVE AND ON COMFORT CARE. I PROVIDED ROXENOL FOR PAIN AND AIR HUNGER. PT RESPIRATIONS ARE FAST WITH OCCASIONAL PAUSES, ACCESSORY MUSCLES INCLUDED IN RESPIRATIONS. SCOPOLAMINE PATCH LOCATED BEHIND PT LEFT EAR AND INTACT. PT LEFT IN A POSITION OF COMFORT WITH Q2 TURNS AND REPOSITIONING. PT LEFT IN A POSITION OF SAFETY WITH FALL PREVENTIONS IN PLACE AND CALL LIGHT IN REACH. NO ACUTE EVENTS AT THIS TIME.
--- NOTE | 2023-04-28 04:46 | NUR ---
SHIFT SUMMARY HOSSEIN IS COMATOSE AT THIS POINT AND NOT ROUSABLE. PT SUCTIONED AND REPOSITIONED FREQUENTLY. ORAL CARE PROVIDED. ATROPINE DROPS PROVIDED TO REDUCE SECRETIONS, ROXANOL PROVIDED FOR AIR HUNGER AND COMFORT NEEDED. PT BREATHING IS AGONAL, SKIN IS HOT TO TOUCH AND MOTTLED. AT THIS TIME PT IS RESTING IN BED, NO SIGNS OF DISCOMFORT NOTED, WILL CONTINUE TO MONITOR.
--- NOTE | 2023-04-28 09:27 | NUR ---
pt passed PT PASSED PRIOR TO THIS RN ARRIVAL THIS AM. CHARGE NURSE AND MD WERE CALLED
== END 2023-04-28 06:57 | DRG 177 ==
LOC: ER 02:19 → MEDS 06:16 → ICUE 06:16 → PCU 06:16 → ICUE 04-17 14:48 → MEDS 04-24 16:53
PROVIDERS: Emergency Medicine; Internal Medicine; Student in an Organized Health Care Education/Training Program; ADMIT Internal Medicine
PROC: XW033E5 Introduction of Remdesivir Anti-infective into Peripheral Vein, Percutaneous Approach, New Technology Group 5 (ICD-10-PCS; principal; 2023-04-13)
PROC: 5A09357 Assistance with Respiratory Ventilation, Less than 24 Consecutive Hours, Continuous Positive Airway Pressure (ICD-10-PCS; 2023-04-13)
PROC: XW0DXM6 Introduction of Baricitinib into Mouth and Pharynx, External Approach, New Technology Group 6 (ICD-10-PCS; 2023-04-14)
PROC: HZ2ZZZZ Detoxification Services for Substance Abuse Treatment (ICD-10-PCS; 2023-04-14)
PROC: 8E0ZXY6 Isolation (ICD-10-PCS; 2023-04-19)
DX: U07.1 COVID-19 (principal); J12.82 Pneumonia due to coronavirus disease 2019; J96.21 Acute and chronic respiratory failure with hypoxia; J96.22 Acute and chronic respiratory failure with hypercapnia; J69.0 Pneumonitis due to inhalation of food and vomit; J44.1 Chronic obstructive pulmonary disease with (acute) exacerbation; J44.0 Chronic obstructive pulmonary disease with (acute) lower respiratory infection; Z66 Do not resuscitate; Z51.5 Encounter for palliative care; K56.609 Unspecified intestinal obstruction, unspecified as to partial versus complete obstruction; E87.21 Acute metabolic acidosis; E87.3 Alkalosis; F10.239 Alcohol dependence with withdrawal, unspecified; F10.27 Alcohol dependence with alcohol-induced persisting dementia; E87.1 Hypo-osmolality and hyponatremia; K21.9 Gastro-esophageal reflux disease without esophagitis; F17.210 Nicotine dependence, cigarettes, uncomplicated; R79.1 Abnormal coagulation profile; I10 Essential (primary) hypertension; F10.26 Alcohol dependence with alcohol-induced persisting amnestic disorder; Q05.9 Spina bifida, unspecified; N31.9 Neuromuscular dysfunction of bladder, unspecified; E86.0 Dehydration; E87.6 Hypokalemia; G31.2 Degeneration of nervous system due to alcohol; Z88.5 Allergy status to narcotic agent; Z79.51 Long term (current) use of inhaled steroids; Z79.52 Long term (current) use of systemic steroids; Z79.2 Long term (current) use of antibiotics; Z87.820 Personal history of traumatic brain injury; Z93.6 Other artificial openings of urinary tract status; Z78.1 Physical restraint status; Z86.718 Personal history of other venous thrombosis and embolism
CPT/HCPCS: 0241U; 36415; 71045; 71260; 74018; 74176; 80048; 80053; 80069; 82803; 82947; 83605; 83735; 84100; 84145; 84443; 84484; 85025; 85027; 85379; 85610; 85730; 86140; 87040; 92526; 92610; 93005; 93010; 93970; 94640; 94644; 94660; 94664; 94760; 94762; 96361; 96365-59; 96367; 96375-59; 99285-25; A9270; C1751; C9399; J0248; J0360; J0456; J0696; J1170; J1630; J1650; J2060; J2250; J2405; J2930; J3370; J3411; J3480; J7030; J7050; J7120; J7512; Q9967